=== PATIENT | male | born 1960 | race Caucasian/White ===

== ENCOUNTER → 2024-08-07 | Outpatient (CLI) | payer OTHER, SELFPAY ==
[2024-08-07 12:22] LABS: Absolute Lymphocyte Count 1.46 X10^3/uL (0.83-4.51); Absolute Neutrophil Count 3.4 X10^3/uL (2.0-7.7); Basophil# 0.06 X10^3/uL; Basophil% 1.1 % (0-1); Eosinophil# 0.15 X10^3/uL; Eosinophils% 2.7 % (0-5); Hematocrit 48.1 % (40-54); Lymphocyte # 1.46 X10^3/ul (0.83-4.51); Lymphocyte % 26.3 % (19-41); Mean Corp Hgb Conc 31.2 g/dL (32-36); Mean Corpuscular Hgb 27.7 pg (27.0-32.0); Mean Corpuscular Volume 88.9 fL (80-94); Mean Platelet Vol. 9.5 fl (6.2-12.0); Monocyte# 0.48 X10^3/uL; Monocyte% 8.6 % (0-10); NRBC Flagged by Analyzer 0 % (0-5); Neutrophil # 3.38 X10^3/uL (2.7-7.7); Neutrophil % 60.9 % (47-70); Platelet Count 377 K/mm3 (150-450); RBC Distribution Width CV 12.7 % (11.6-14.6); RBC Distribution Width SD 41.3 fl (35.1-43.9); Red Blood Count 5.41 M/mm3 (4.6-6.2); White Blood Count 5.6 K/mm3 (4.4-11.0)
[2024-08-07 13:19] LABS: AST(SGOT) 20 U/L (15-37); Alanine Aminotransfer ALT/SGPT 20 U/L (16-61); Alkaline Phosphatase 104 U/L (45-117); Anion Gap 6 (5-15); BUN 8 mg/dL (7-18); BUN/Creat Ratio 9.1 RATIO (10-20); Calcium,Total 9.4 mg/dL (8.5-10.1); Chloride 102 mmol/L (98-107); Cholesterol 198 mg/dL (200); Creatinine, Serum 0.88 mg/dL (0.70-1.30); EST Glomerular Filtration Rate 92 mL/min (>60); Est Glom Filt Rate - Afr Amer 112 mL/min (>60); Globulin 4.1 g/dL (2.2-4.2); Glucose 90 mg/dL (74-106); High Density Lipoprotein 75 mg/dL; Potassium 5.1 mmol/L (3.5-5.1); Protein, Total 8.1 g/dL (6.4-8.2); Sodium Level 137 mmol/L (136-145); Triglycerides 74 mg/dL; Very Low Density Lipoprotein 15 mg/dL (5-40)
--- NOTE | 2024-08-07 13:28 | RAD_ITS ---
EXAM: XR CHEST, 2 VIEWS CLINICAL INDICATION: SOB TECHNIQUE: Frontal and lateral views of the chest. COMPARISON: 02/06/2024 FINDINGS: LUNGS AND PLEURAL SPACES: Hyperinflation of the lungs and diffuse interstitial prominence consistent with COPD. No definite focal pneumonia. No pneumothorax. No effusion. HEART: No significant abnormality. Cardiac silhouette not enlarged. MEDIASTINUM: Central airways and mediastinal contour are unremarkable. BONES/JOINTS: Osseous degenerative changes. No acute fracture. SOFT TISSUES: No significant abnormality. VASCULATURE: Atherosclerosis. RAD/Chest PA and Lateral IMPRESSION: Hyperinflation of the lungs and diffuse interstitial prominence consistent with COPD. No definite focal pneumonia. Electronically Signed: Víctor Welch DO at 22:12 EST ,
== END | disposition home or self-care (01) ==
PROVIDERS: PCP Nurse Practitioner Family; Referring Provider Nurse Practitioner Family; Visit Provider Nurse Practitioner Family
DX: Z00.01 Encounter for general adult medical examination with abnormal findings (principal); Z12.5 Encounter for screening for malignant neoplasm of prostate; R06.02 Shortness of breath; I25.2 Old myocardial infarction
CPT/HCPCS: 36415; 71046; 80053; 80061; 83880; 84153; 85025; G0103

== ENCOUNTER → 2024-10-09 | Outpatient (CLI) | payer OTHER, SELFPAY ==
--- NOTE | 2024-10-09 06:49 | ECHOD_ITS ---
Reason For Study Reason For Study: Chest Pain Procedure This was a 2D Doppler, Color Flow transthoracic echocardiogram. Techncially difficult due to patient body habitus. Most images taken from subcostal window. Exam performed in department. Left Ventricle Normal LV size. Left ventricular systolic function is normal. The left ventricular ejection fraction is 55 %. Stage 1 diastolic dysfunction. No regional wall motion abnormalities noted. Right Ventricle Normal RV size. Normal systolic function. Atria Normal left atrium. Normal right atrium. Mitral Valve Normal mitral valve. Tricuspid Valve Normal tricuspid valve. Mild to moderate (1-2+) tricuspid valve insufficiency. Pulmonary artery systolic pressure is 45 mmHg. Aortic Valve Trisinus/trileaflet aortic valve. Pulmonic Valve Normal pulmonic valve. Great Vessels Normal aortic root. The pulmonary artery is normal size. Inferior vena cava collapse with respiration. Pericardium/Pleural No pericardial effusion. MMode/2D Measurements & Calculations LVIDd: 3.8 cm IVSd: 0.81 cm LA dimension: 2.1 cm LVIDs: 2.5 cm LVPWd: 0.71 cm RVDd: 3.5 cm FS: 33.1 % Time Measurements MV dec time: 0.12 sec Doppler Measurements & Calculations MV E max edi: 62.8 cm/sec Lat Peak E' Edi: 17.9 cm/sec Med Peak E' Edi: 11.8 cm/sec MV A max edi: 67.0 cm/sec E/E' lat: 3.5 E/E' med: 5.3 MV E/A: 0.94 MV V2 max: 104.1 cm/sec MV P1/2t max edi: 79.1 cm/sec LV V1 max: 118.4 cm/sec MV max P.3 mmHg MV P1/2t: 42.2 msec LV V1 max P.6 mmHg MV V2 mean: 60.6 cm/sec LV V1 mean P.5 mmHg MV mean P.7 mmHg MV dec slope: 549.3 cm/sec2 LV V1 mean: 72.8 cm/sec MV V2 VTI: 14.9 cm MVA(P1/2t): 5.2 cm2 LV V1 VTI: 16.6 cm PA V2 max: 136.6 cm/sec TR max edi: 322.8 cm/sec TR max P.7 mmHg ECHO/Echo Complete Interpretation Summary Normal LV size. Left ventricular systolic function is normal. The left ventricular ejection fraction is 55 %. Stage 1 diastolic dysfunction. Pulmonary artery systolic pressure is 45 mmHg. Ordering Physician: Ned Harrison MD Referring Physician: Ned Harrison Performed By: Jimmy Rose RCS
--- NOTE | 2024-10-09 18:01 | STRESSREP ---
Stress Test Report Pharmacologic myocardial perfusion stress test. 64-year-old man with history of coronary artery disease Resting EKG demonstrates sinus tachycardia with a rate of 104 bpm. Resting blood pressure is 130/82 mmHg. 0.4 mg of regadenoson was infused per usual protocol followed by rapid intravenous saline flush injection. Continuous EKG monitoring was performed. The maximum heart rate was 136 bpm which was 87% of max impacted heart rate the maximum workload was 1 metabolic equivalent. At rest there were no ST or T wave changes noted to suggest ischemia and at peak infusion nonspecific ST changes were noted which did not meet the criteria for ischemia. No clinical angina is noted. The final blood pressure was 126/84 mmHg. Myocardial perfusion protocol. 12 mCi of technetium 99m sestamibi was injected at rest. 0.4 mg of regadenoson was infused per usual protocol. At peak infusion 34.7 mCi of technetium 99m sestamibi was injected stress images were obtained stress and rest images were reconstructed and compared in the short axis vertical long and horizontal long axis. Gated images were also obtained. Perfusion SPECT analysis: Review of the stress images demonstrate normal uptake of tracer noted in all areas of the myocardium. The resting images similar demonstrated normal uptake of tracer noted in all areas of the myocardium. No areas of reversibility are noted to suggest ischemia and no previous infarct is noted. Gated SPECT analysis: The gated ejection fraction is 50%. Conclusion: Normal pharmacologic myocardial perfusion stress test. Preserved ejection fraction.
== END | disposition home or self-care (01) ==
PROVIDERS: PCP Nurse Practitioner Family; Referring Provider Internal Medicine Cardiovascular Disease; Visit Provider Internal Medicine Cardiovascular Disease
DX: I25.10 Atherosclerotic heart disease of native coronary artery without angina pectoris (principal)
CPT/HCPCS: 78452; 93017; 93306; A9500; J2785

== ENCOUNTER → 2025-02-12 | Outpatient (CLI) | payer OTHER, SELFPAY ==
[2025-02-12 18:04] LABS: Cholesterol 179 mg/dL (<=200); Low Density Lipoprotein Calc. 99 mg/dL; Triglycerides 49 mg/dL; Very Low Density Lipoprotein 10 mg/dL (5-40); cholesterol:hdl ratio screen 2.56
== END | disposition home or self-care (01) ==
LOC: LAB 16:13
PROVIDERS: PCP Nurse Practitioner Family; Referring Provider Student in an Organized Health Care Education/Training Program; Visit Provider Student in an Organized Health Care Education/Training Program
DX: I25.10 Atherosclerotic heart disease of native coronary artery without angina pectoris (principal)
CPT/HCPCS: 36415; 80061

== ENCOUNTER → 2025-04-22 | Outpatient (CLI) | payer OTHER, SELFPAY | END | disposition home or self-care (01) | LOC: PSN 12:49 | PROVIDERS: PCP Nurse Practitioner Family; Referring Provider Student in an Organized Health Care Education/Training Program; Visit Provider Student in an Organized Health Care Education/Training Program | DX: R00.0 Tachycardia, unspecified (principal) | CPT/HCPCS: 93225; 93226 ==

== ENCOUNTER → 2025-06-02 | Outpatient (CLI) | payer OTHER, SELFPAY | END | disposition home or self-care (01) | LOC: PSN 11:52 | PROVIDERS: PCP Nurse Practitioner Family; Referring Provider Student in an Organized Health Care Education/Training Program; Visit Provider Student in an Organized Health Care Education/Training Program | DX: R00.0 Tachycardia, unspecified (principal) | CPT/HCPCS: 93225; 93226 ==

== ENCOUNTER → 2025-06-16 | Outpatient (CLI) | payer OTHER, SELFPAY ==
--- OUTSIDE RECORDS SUMMARY | 2025-06-16 07:03 | XMS RPT_ITS | CCD ---
Author Organization [facility] Care Team Providers Care Coding File Clerk Name Role Phone Jocelyn PLANT SCIENCE PROFESSOR-C, Sherin Primary Care Provider Jocelyn PLANT SCIENCE PROFESSOR-C, Sherin Attending Provider [phone] Jocelyn PLANT SCIENCE PROFESSOR-C, Sherin Referring Provider Christy APONTE, Dr. Marino Attending Provider [phone] Ned Harrison MD Referring Provider [phone] Ynes Hectoryler Attending Provider [phone] Jocelyn PLANT SCIENCE PROFESSOR-C, Sherin Primary Care Provider Bhargav Hector Attending Provider Aida MENDOZA Bhargav Referring Provider [phone] Jocelyn PLANT SCIENCE PROFESSOR-C, Sherin Referring Provider Christy APONTE, Dr. Marino Attending Provider [phone] Jocelyn PLANT SCIENCE PROFESSOR-C, Sherin Primary Care Physician Bhargav Hector Attending Physician [phone] Christy APONTE, Dr. Marino Attending Physician Aida Bhargav Referring Unavailable Xavier Guadalupe Attending Unavailable Jocelyn, Sherin Primary Care Unavailable Ned Harrison Attending Unavailable Jocelyn, Sherin Primary Care Unavailable Jocelyn, Sherin Referring Unavailable Jocelyn, Sherin Primary Care Unavailable Bhargav Parra Attending Unavailable Jocelyn, Sherin Referring Unavailable Jocelyn, Sherin Primary Care Unavailable Ynes Parrayler Attending Unavailable Jocelyn, Sherin Referring Unavailable Ned Harrison Attending Unavailable Ned Harrison Referring Unavailable Jocelyn, Sherin Primary Care Unavailable Jocelyn, Sherin Primary Care Unavailable Abbyiter, Bhargav Attending Unavailable Demiter, Bhargav Referring Unavailable Demiter, Bhargav Referring Unavailable Demiter, Bhargav Attending Unavailable [facility] Primary Care Unavailable Demiter, Bhargav Referring Unavailable Demiter, Bhargav Attending Unavailable [facility] Primary Care Unavailable [facility] Primary Care Unavailable [facility] Attending Unavailable [facility] Referring Unavailable ChristyNed tan Attending Unavailable [facility] Referring Unavailable [facility] Primary Care Unavailable Ned Harrison Attending Unavailable [facility] Primary Care Unavailable Medications Current Medications Medication Drug Class(es) Dates Sig (Normalized) Sig (Original) [id number] 200 actuat albuterol 0.09 mg/actuat metered dose inhaler (5 sources) beta2-Adrenergic Agonist Start: 08-30-2024 aspirin 81 mg chewable tablet (5 sources) Platelet Aggregation Inhibitor, Nonsteroidal Anti-inflammatory Drug Start: 09-06-2024 take 1 tablet by mouth once daily 24 hr metoprolol succinate 50 mg extended release oral tablet (15 sources) beta-Adrenergic Kat Start: 04-04-2025 take 1 tablet by mouth once daily Start: 02-14-2025 End: 04-04-2025 take 1 tablet by mouth once daily Metoprolol Succinate 25 mg tablet extended release 24 hr Discontinued 25 mg PO daily 90 3 February 14, 2025 12:00pm April 04, 2025 2:57pm Start: 09-06-2024 End: 02-14-2025 take 1 tablet by mouth once daily Metoprolol Succinate (Toprol Xl) 50 mg tablet extended release 24 hr Discontinued 50 mg PO daily 90 3 September 06, 2024 1:00am February 14, 2025 12:01pm Start: 07-09-2013 End: 09-06-2024 Metoprolol Tartrate 25 MG ta blet Discontinued 12.5 mg PO TWICE A DAY July 09, 2013 1:00am September 06, 2024 12:13pm Completed/Discontinued Medications Medication Drug Class(es) Dates Sig (Normalized) Sig (Original) acetaminophen 325 mg / HYDROcodone bitartrate 5 mg oral tablet (5 sources) Opioid Agonist Start: 07-09-2013 End: 09-06-2024 Hydrocodone-Acetam inophen 1 TABLET tablet Discontinued 1 {tbl} PO EVERY 4 HOURS NEEDED as needed for Narcotic Induced Breathing Dif 20 0 July 09, 2013 1:00am September 06, 2024 12:13pm acetaminophen 325 mg / oxyCODONE hydrochloride 5 mg oral tablet (5 sources) Opioid Agonist Start: 02-05-2014 End: 09-06-2024 Oxycodone-Acetamin ophen 1 TABLET tablet Discontinued 1 - 2 {tbl} PO EVERY 4 HOURS NEEDED as needed for Pain February 05, 2014 12:00am September 06, 2024 12:13pm ibuprofen 600 mg oral tablet (5 sources) Nonsteroidal Anti-inflammatory Drug Start: 02-05-2014 End: 09-06-2024 take 1 tablet by mouth every eight hours Ibuprofen 600 MG tablet Discontinued 600 mg PO Q8H 30 0 February 05, 2014 12:00am September 06, 2024 12:13pm lisinopril 10 mg oral tablet (14 sources) Angiotensin Converting Enzyme Inhibitor Start: 02-14-2025 End: 04-04-2025 take 1 tablet by mouth once daily Lisinopril 10 mg tablet Discontinued 10 mg PO daily 90 3 February 14, 2025 12:00pm April 04, 2025 2:57pm Start: 09-06-2024 End: 02-14-2025 take 1 tablet by mouth once daily Lisinopril 20 mg tablet Discontinued 20 mg PO daily 90 3 September 06, 2024 1:00am February 14, 2025 12:01pm Start: 07-09-2013 End: 09-06-2024 take 1 tablet by mouth every other day Lisinopril 2.5 MG tablet Discontinued 2.5 mg PO EVERY OTHER DAY July 09, 2013 1:00am September 06, 2024 12:13pm naproxen 500 mg oral tablet (5 sources) Nonsteroidal Anti-inflammatory Drug Start: 07-09-2013 End: 09-06-2024 take 1 tablet by mouth twice daily Naproxen 500 MG tablet Discontinued 500 mg PO TWICE A DAY July 09, 2013 1:00am September 06, 2024 12:13pm Simvastatin (5 sources) HMG-CoA Reductase Inhibitor Start: 07-09-2013 End: 09-06-2024 Simvastatin Discontinued 1 {tbl} PO DAILY July 09, 2013 1:00am September 06, 2024 12:13pm Problems Active Problems Problem Classification Problem Date Documented Da te Episodic/Chronic Cardiac dysrhythmias (6 sources) Tachycardia; Translations: [Tachycardia, unspecified] Onset: 04-28-2025 03-21-2025 Episodic Coronary atherosclerosis and other heart disease (20 sources) History of non-ST segment elevation myocardial infarction; Translations: [Old myocardial infarction] Onset: 09-06-2024 10-15-2024 Chronic Essential hypertension (11 sources) Hypertensive disorder; Translations: [Essential (primary) hypertension] 10-15-2024 Chronic Occlusion or stenosis of precerebral arteries (5 sources) Vascular calcification; Translations: [Occlusion and stenosis of unspecified carotid artery] 08-30-2024 Chronic Other circulatory disease (4 sources) Low blood pressure; Translations: [Hypotension, unspecified] 03-21-2025 Episodic Other lower respiratory disease (10 sources) Dyspnea; Translations: [Shortness of breath] 08-30-2024 Episodic Past or Other Problems Problem Classification Problem Date Documented Da te Episodic/Chronic Other lower respiratory disease (1 source) Shortness of breath; Translations: [Shortness of breath] Onset: 09-06-2024 Episodic Results Test Name Value Interpretation Reference Range Facility Office Visit Reporton 2024 Office Visit Report [facility] [address] [place] [address] OFFICE VISIT Date of Service: 03/21/25 MR#: [id number] Acct: [id number] Patient: KOLTON WALTER Rep #: [id number] : 1960 Provider: Dr. Ned Harrison MD Age/Sex: 64/M Location: [facility] [place] Status: Signed Intake Vital Signs 02/14/25 11:29 03/21/25 13:59 Height 5 ft 5 in 5 ft 5 in Weight: 99 lb BMI 16.5 BP 89/66 L 100/66 Blood Pressure Location Lt brachial Lt brachial Position Sitting Sitting Respiration 18 18 Pulse 97 130 H Pulse Source Monitor Monitor Temp 96.4 F L Pulse Oximetry (%) 97 93 Oxygen Delivery Method room air room air Intake Visit Reasons: Blood pressure check Allergies No Known Allergies Allergy (Verified 02/14/25 11:29) Nurse's Note: 2 week BP and pulse checked after discontinuing his lisinopril and metoprolol decrease d/t Pt's concern about interaction with his COPD. BP 100/66 Pulse 130. Fatigue and dizziness have improved. Continued SOB with activity. Reports feel HR increase with activity as well. To establish with [facility] 05/01/25. Denies chest pain. No other distress noted. KELLY Herrera notified with new orders to increase metoprolol succ 50 mg qday and check BP and HR then notify office of readings. Pt reports will purchase BP monitor. Assessment and Plan Assessment and Plan (1) Hypotension: Status: Acute Qualifiers: Hypotension type: unspecified hypotension type Qualified Code(s): I95.9 - Hypotension, unspecified Plan: Patient has a history of hypertension. Last seen 02/14/2025 blood pressure noted to be 82/60. At that time, he was recommended to decrease his lisinopril to 10 mg daily and his metoprolol to 25 mg daily. BP check in office today with a blood pressure of 100/66 and a heart rate of 130. Plan: Recommend patient discontinue his lisinopril and return metoprolol dose to metoprolol succinate 50 mg daily. Recommend patient monitor his blood pressure in his home environment and notify our office with readings in 2 weeks. (2) Tachycardia: Status: Acute Plan: Patient's metoprolol was decreased to 25 mg daily at last appointment secondary to hypotension. Upon evaluation today, patient is noted to be tachycardic with a heart rate of 132 bpm on EKG and sinus tachycardia. Plan: Recommend patient increase his metoprolol to 50 mg daily at previous dose. Asked patient to monitor his heart rate and his home environment over the next 2 weeks and notify our office with collected data. Orders: Orders 12 Lead EKG performed by [facility] 03/21/25 R00.0 - Tachycardia, unspecified 03/21/25 1525 Date Bhargav MENDOZA 03/24/25 0839 Cosigner Signature: Date (if applicable) Ned Harrison MD CC: Normal [facility] Cardiology Visit Reporton Cardiology Visit Report [facility] [address] [place] [address] OFFICE VISIT Date of Service: 02/14/25 MR#: [id number] Acct: [id number] Name: KOLTON WALTER Rep #: [id number] : 1960 Provider: KELLY Herrera Age/Sex: 64/M Location: [facility] Status: Signed HPI HPI History of Present Illness Details: Kolton Walter is a 64-year-old male who presents to the office today for follow-up for monitoring his cardiovascular disease. Patient has a history of coronary artery disease dating back to 2010 in which he presented with chest discomfort and was found to have an NSTEMI. Patient underwent heart catheterization at that time which demonstrated a left main coronary artery which was normal, proximal LAD with a 90% stenosis with thrombosis, left circumflex artery with 70% ostial stenosis in the right coronary artery which had 40% mid stenosis. Patient underwent angioplasty and stenting of the LAD artery with a drug-eluting stent. Patient was lost to follow-up after that. Patient reestablished with cardiology here in August 2024, approximately 1 month ago. At time of reestablishing here, patient reported concerns of fatigue and shortness of breath with exertion and a few episodes of near syncope. Patient was initiated on 2 antihypertensive agents including metoprolol succinate and lisinopril. Patient had nuclear stress test and echocardiogram ordered at that time. Upon presentation today, patient reports dizziness with standing up and with activity. He denies syncope. He notices fatigue as soon as he tries to do any activity. It is affecting his efficiency at work. His fatigue is the same as reported 4 months ago. Weakness is reported to be about the same over the last 4 months. he Continues to lose weight. He feels he is eating fine. He continues to find himself short of breath with any activity. This also felt to be about the same as 4 months ago. Further ROS below. Intake Vital Signs 10/15/24 07:22 02/14/25 11:29 02/14/25 12:04 Height 5 ft 5 in 5 ft 5 in Weight: 106 lb 99 lb BMI 17.6 16.5 BP 117/79 89/66 L 82/60 L Blood Pressure Location Lt brachial Lt brachial Lt brachial Position Sitting Sitting Sitting Respiration 18 18 Pulse 96 97 Pulse Source Monitor Monitor Temp 96.4 F L Temperature Source Oral Pulse Oximetry (%) 94 97 Oxygen Delivery Method room air room air Intake Visit Reasons: 4 M FU Certified Medical Technician Required: No Accompanied by: Self Is patient in pain?: No Allergies No Known Allergies Allergy (Verified 02/14/25 11:29) Medications ???Medication ???Instructions ???Recorded ???Confirmed ???Type albuterol sulfate 90 mcg/actuation 2 puff inhalation Q4-6H PRN 02/1402/14/25 History aerosol inhaler aspirin 81 mg chewable tablet 81 mg PO QDAY 09/06/24 02/14/25 Hi story lisinopril 10 mg tablet 10 mg PO QDAY #90 tabs 02/14/25 Rx metoprolol succinate 25 mg 25 mg PO QDAY #90 tabs 02/14/25 Rx tablet,extended release 24 hr Have you fallen in the past year?: No PFSH Medical History COPD (chronic obstructive pulmonary disease) SOB (shortness of breath) CAD (coronary artery disease) Carotid artery calcification Hx of non-ST elevation myocardial infarction (NSTEMI) ( 2010) Surgical History History of percutaneous coronary intervention (06/04/11) Family History Grandmother Diabetes Grandfather Cancer Social History Smoking Status: Current every day smoker quit status: considering quitting alcohol intake: never substance use type: marijuana caffeine: Yes Type: carbonated beverages, coffee and tea ROS Const Const: Positive for fatigue and weakness ENT ENT: Positive for dizziness; Negative for balance problems Cardio Chest Pain: No Palpitations: No Edema: None Muscle aches with walking: None Resp Respiratory: Positive for SOB with activity; Negative for SOB at rest or SOB orthopnea SOB lying down GI GI: Negative nausea, vomiting or heartburn Musc Musc: Negative for muscle weakness or balance problems Neuro Neuro: Positive for dizziness and weakness; Negative for lightheadedness, near syncope or syncope Endo Endo: Positive for fatigue Cardiology Exam Const Appearance: cooperative, comfortable, no acute distress and well developed; Negative diaphoretic Nutritional Appearance: thin Orientation: alert and oriented x3 Ambulating without assistive device Head Head: normal to inspection, normocephalic and atraumatic Ears: hearing grossly normal bilaterally Nose: external nose normal and Negative epis (more content not included)... Normal [facility] Calculated very low density lipoprotein (VLDL) cholesterol measurementOrdered By: Bhargav Parra on 02-12-2025 Calculated very low density lipoprotein (VLDL) cholesterol measurement 10 mg/dL 5-40 [facility] LDL calc ser/plasOrdered By: Bhargav Parra on 02-12-2025 Cholesterol in LDL [Mass/Vol] 99 mg/dL [facility] Comment on above: Stonojxtoj=705-502 m g/dL & Higher Itde=402 mg/dL or greater Lipid Profileon 02-12-2025 CHOL:HDL 2.56 Normal [facility] Comment on above: Performed By: #### L 500.4100 #### [facility] [address] [place], [address] Cholesterol [Mass/Vol] 179 mg/dL Normal <=200 [facility] Comment on above: Result Comment: Chol esterol level, Desirable <200 mg/dL Borderline high cholesterol 200-239 mg/dL High cholesterol >=240 mg/dL Recommendations of the NCEP Adult Treatment Panel for the following risk-cutoff thresholds for the [place] population. Performed By: #### L 500.4100 #### [facility] [address] [place], [address] Cholesterol in HDL [Mass/Vol] 70 mg/dL Normal [facility] Comment on above: Result Comment: Rocio onal Cholesterol Education Program (NCEP) guidelines: <40 mg/dL: Low HDL-cholesterol (major risk factor for CHD) >= 60 mg/dL: High HDL-cholesterol (negative risk factor for CHD) HDL-cholesterol is affected by a number of factors, e.g. smoking, exercise, hormones, sex and age. Performed By: #### L 500.4100 #### [facility] [address] [place], [address] Cholesterol in LDL [Mass/Vol] 99 mg/dL Normal [facility] Comment on above: Result Comment: Bord pcylpv=236-342 mg/dL Higher Jdxn=902 mg/dL or greater Performed By: #### L 500.4100 #### [facility] [address] [place], [address] Cholesterol in VLDL [Mass/Vol] 10 mg/dL Normal 5-40 [facility] Comment on above: Performed By: #### L 500.4100 #### [facility] [address] [place], [address] Triglyceride [Mass/Vol] 49 mg/dL Normal [facility] Comment on above: Result Comment: The drugs N-Acetylcysteine and Metamizole may falsely depress this assay. Normal range: <150 mg/dL Borderline High: 150-199 mg/dL High: 200-499 mg/dL Very High: >500 mg/dL Performed By: #### L 500.4100 #### [facility] [address] [place], [address] Screening total cholesterol/ high density lipoprotein (HDL) cholesterol ratioOrdered By: Bhargav Parra on 02-12-2025 Cholesterol.total/[place] sterol in HDL [Mass ratio] 2.56 {ratio} [facility] Serum or plasma cholesterol in HDL measurement (mass/volume)Ordered By: Bhargav Parra on 02-12-2025 Cholesterol in HDL [Mass/Vol] 70 mg/dL >40 [facility] Comment on above: National Cholesterol Education Program (NCEP) guidelines:<40 mg/dL: Low HDL-cholesterol (major risk factor for CHD)>= 60 mg/dL: High HDL-cholesterol (negative risk factor for CHD)HDL-cholesterol is affected by a number of factors, e.g. smoking, exercise, hormones, sex and age. Serum or plasma cholesterol measurement (mass/volume)Ordered By: Bhargav Parra on 02-12-2025 Cholesterol [Mass/Vol] 179 mg/dL <201 [facility] Comment on above: Cholesterol level, D esirable <200 mg/dLBorderline high cholesterol 200-239 mg/dLHigh cholesterol >=240 mg/dLRecommendations of the NCEP Adult Treatment Panel for the following risk-cutoff thresholds for the [place] population. Triglycerides measurementOrd ered By: Bhargav Parra on 02-12-2025 Triglyceride [Mass/Vol] 49 mg/dL <199 [facility] Comment on above: The drugs N-Acetylcy steine and Metamizole may falsely depress this assay. Normal range: <150 mg/dLBorderline High: 150-199 mg/dLHigh: 200-499 mg/dLVery High: >500 mg/dL Cardiology Visit Reporton Cardiology Visit Report [facility] [address] [place] [address] OFFICE VISIT Date of Service: 10/15/24 MR#: [id number] Acct: [id number] Name: KOLTON WALTER Rep #: [id number] : 1960 Provider: KELLY Herrera Age/Sex: 64/M Location: [facility] Status: Signed HPI HPI History of Present Illness Details: Kolton Walter is a 64-year-old male who presents to the office today for follow-up for monitoring his cardiovascular disease. Patient has a history of coronary artery disease dating back to 2010 in which he presented with chest discomfort and was found to have an NSTEMI. Patient underwent heart catheterization at that time which demonstrated a left main coronary artery which was normal, proximal LAD with a 90% stenosis with thrombosis, left circumflex artery with 70% ostial stenosis in the right coronary artery which had 40% mid stenosis. Patient underwent angioplasty and stenting of the LAD artery with a drug-eluting stent. Patient was lost to follow-up after that. Patient reestablished with cardiology here in August 2024, approximately 1 month ago. At time of reestablishing here, patient reported concerns of fatigue and shortness of breath with exertion and a few episodes of near syncope. Patient was initiated on 2 antihypertensive agents including metoprolol succinate and lisinopril. Patient had nuclear stress test and echocardiogram ordered at that time. Since seen, approximately 1 month ago, patient reports feeling about the same. Patient reports he was recently diagnosed with COPD and is planning to follow-up with PCP and possibly see a category planner. Patient reports fatigue over the last 6 months that he relates to shortness of breath with activity. Patient has a long history of smoking and works in an environment with poor air quality. Patient reports noticing headaches since starting his antihypertensive medications; however, does report that the headaches have resolved and he has not had a headache in over a week now. Patient does report anxiety about his health. Prior to patient's presentation for NSTEMI, patient was experiencing shortness of breath, neck pain, chest discomfort, arm heaviness. Patient denies any recurrence of these symptoms, acknowledging he does have shortness of breath but is different from prior episode. Intake Vital Signs 09/06/24 11:09 10/15/24 07:22 Height 5 ft 5 in 5 ft 5 in Weight: 108 lb 106 lb BMI 17.9 17.6 BP 160/113 H 117/79 Blood Pressure Location Lt brachial Lt brachial Position Sitting Sitting Respiration 18 18 Pulse 101 H 96 Pulse Source NIBP Monitor Pulse Oximetry (%) 94 Oxygen Delivery Method room air Intake Visit Reasons: 4 W FU Certified Medical Technician Required: No Accompanied by: Self Is patient in pain?: No Allergies No Known Allergies Allergy (Verified 10/15/24 11:00) Medications ???Medication ???Instructions ???Recorded ???Confirmed ???Type albuterol sulfate 90 mcg/actuation 2 puff inhalation Q4-6H PRN 02/1410/15/24 History aerosol inhaler aspirin 81 mg chewable tablet 81 mg PO QDAY 09/06/24 10/15/24 Hi story lisinopril 20 mg tablet 20 mg PO QDAY #90 tabs 09/06/24 Rx metoprolol succinate 50 mg 50 mg PO QDAY #90 tabs 09/06/24 Rx tablet,extended release 24 hr (Toprol XL) Ejection fraction %: 55 [facility] Medical History COPD (chronic obstructive pulmonary disease) SOB (shortness of breath) CAD (coronary artery disease) Carotid artery calcification Hx of non-ST elevation myocardial infarction (NSTEMI) ( 2010) Surgical History History of percutaneous coronary intervention (06/04/11) Family History Grandmother Diabetes Grandfather Cancer Social History Smoking Status: Current every day smoker quit status: considering quitting alcohol intake: never substance use type: marijuana caffeine: Yes Type: carbonated beverages, coffee and tea ROS Const Const: Positive for fatigue and headache(s) (since on BP med); Negative for weakness, frequent falls, night sweats, excessive sweating or weight gain Eyes Eyes: Negative for blurry vision ENT ENT: Positive for headache(s) (since on BP med); Negative for dizziness, tinnitus, Nosebleed/epistaxis, balance problems or bleeding gums Cardio Chest Pain: No Palpitations: No Edema: None Muscle aches with walking: None Resp Respiratory: Positive for SOB with activity, SOB at rest, SOB orthopnea SOB lying down, Cough, chest congestion and wheezing; Negative for snoring or paroxysmal nocturnal dyspnea GI GI: Negative nausea, vomiting, heartburn, (more content not included)... Normal [facility] Cardiovascular stress test r eportOrdered By: Ned Harrison on 10-09-2024 Study report [facility] [address] [place] [address] MR#: [id number] Acct: [id number] Name: KOLTON WALTER Rep #: [id number] : 1960 64 From: Ned Harrison MD Primary Care: ROHINI Cameron Status: REG CLI Referring Dr: Ned Harrison MD Sex: M C Stress Test Report Pharmacologic myocardial perfusion stress test. 64-year-old man with history of coronary artery disease Resting EKG demonstrates sinus tachycardia with a rate of 104 bpm. Resting blood pressure is 130/82 mmHg. 0.4 mg of regadenoson was infused per usual protocol followed by rapid intravenous saline flush injection. Continuous EKG monitoring was performed. The maximum heart rate was 136 bpm which was 87% of max impacted heart rate the maximum workload was 1 metabolic equivalent. At rest there were no ST or T wave changes noted to suggest ischemia and at peak infusion nonspecific ST changes were noted which did not meet the criteria for ischemia. No clinical angina is noted. The final blood pressure was 126/84 mmHg. Myocardial perfusion protocol. 12 mCi of technetium 99m sestamibi was injected at rest. 0.4 mg of regadenoson was infused per usual protocol. At peak infusion 34.7 mCi of technetium 99m sestamibi was injected stress images were obtained stress and rest images were reconstructed and compared in the short axis vertical long and horizontal long axis. Gated images were also obtained. Perfusion SPECT analysis: Review of the stress images demonstrate normal uptake of tracer noted in all areas of the myocardium. The resting images similar demonstrated normal uptake of tracer noted in all areas of the myocardium. No areas of reversibility are noted to suggest ischemia and no previous infarct is noted. Gated SPECT analysis: The gated ejection fraction is 50%. Conclusion: Normal pharmacologic myocardial perfusion stress test. Preserved ejection fraction. 10/09/241801 Date _ Ned Harrison MD CC: ROHINI Martinez; Dr. Ned Harrison MD ~ Date Dictated: 10/09/241800 Date Transcribed: 10/09/241800 Nurse Ob: CO Signed [facility] Work Phone: Echo Completeon 10-09-2024 Echo Complete [facility] Cardiovascular Services [address] [place] [address] Echo Complete 10/09/24 0822 MR#: [id number] Acct: [id number] Name: KOLTON WALTER Rep #: [id number] : 1960 64 From: Ned Harrison MD Attending Dr: Dr. Ned Harrison MD Status: ROSA FOWLER Ordering Dr: Ned Harrison MD Date: 10/09/24 Location: CVS Sex: M C Admitted: Reason For Study Reason For Study: Chest Pain Procedure This was a 2D Doppler, Color Flow transthoracic echocardiogram. Techncially difficult due to patient body habitus. Most images taken from subcostal window. Exam performed in department. Left Ventricle Normal LV size. Left ventricular systolic function is normal. The left ventricular ejection fraction is 55 %. Stage 1 diastolic dysfunction. No regional wall motion abnormalities noted. Right Ventricle Normal RV size. Normal systolic function. Atria Normal left atrium. Normal right atrium. Mitral Valve Normal mitral valve. Tricuspid Valve Normal tricuspid valve. Mild to moderate (1-2+) tricuspid valve insufficiency. Pulmonary artery systolic pressure is 45 mmHg. Aortic Valve Trisinus/trileaflet aortic valve. Pulmonic Valve Normal pulmonic valve. Great Vessels Normal aortic root. The pulmonary artery is normal size. Inferior vena cava collapse with respiration. Pericardium/Pleural No pericardial effusion. MMode/2D Measurements Calculations LVIDd: 3.8 cm IVSd: 0.81 cm LA dimension: 2.1 cm LVIDs: 2.5 cm LVPWd: 0.71 cm RVDd: 3.5 cm FS: 33.1 % Time Measurements MV dec time: 0.12 sec Doppler Measurements Calculations MV E max edi: 62.8 cm/sec Lat Peak E' Edi: 17.9 cm/sec Med Peak E' Edi: 11.8 cm/sec MV A max edi: 67.0 cm/sec E/E' lat: 3.5 E/E' med: 5.3 MV E/A: 0.94 MV V2 max: 104.1 cm/sec MV P1/2t max edi: 79.1 cm/sec LV V1 max: 118.4 cm/sec MV max P.3 mmHg MV P1/2t: 42.2 msec LV V1 max P.6 mmHg MV V2 mean: 60.6 cm/sec LV V1 mean P.5 mmHg MV mean P.7 mmHg MV dec slope: 549.3 cm/sec2 LV V1 mean: 72.8 cm/sec MV V2 VTI: 14.9 cm MVA(P1/2t): 5.2 cm2 LV V1 VTI: 16.6 cm PA V2 max: 136.6 cm/sec TR max edi: 322.8 cm/sec TR max P.7 mmHg ECHO/Echo Complete Interpretation Summary Normal LV size. Left ventricular systolic function is normal. The left ventricular ejection fraction is 55 %. Stage 1 diastolic dysfunction. Pulmonary artery systolic pressure is 45 mmHg. Ordering Physician: Ned Harrison MD Referring Physician: Ned Harrison Performed By: Jimmy Rose RCS 10/09/24 1313 Date Ned Harrison MD CC: ROHINI Martinez; Dr. Ned Harrison MD Date Dictated: 10/09/2422 Date Transcribed: 10/09/24 131 Nurse Ob: Signed Normal [facility] Echocardiogram study reportO rdered By: Ned Harrison on 10-09-2024 Study report [facility] [address] [place] [address] Echo Complete 10/09/24 0822 MR#: [id number] Acct: [id number] Name: KOLTON WALTER Rep #:[id number] : 1960 64 From: Ned Leach Attending Dr: Dr. Ned Harrison MD S tatus: REG CLI Ordering Dr: Ned Harrison MD Date: Location: [facility] Sex: M C Admitted: Reason For Study Reason For Study: Chest Pain Procedure This was a 2D Doppler, Color Flow transthoracic echocardiogram. Techncially difficult due to patient body habitus. Most images taken from subcostal window. Exam performed in department. Left Ventricle Normal LV size. Left ventricular systolic function is normal. The left ventricular ejection fraction is 55 %. Stage 1 diastolic dysfunction. No regional wall motion abnormalities noted. Right Ventricle Normal RV size. Normal systolic function. Atria Normal left atrium. Normal right atrium. Mitral Valve Normal mitral valve. Tricuspid Valve Normal tricuspid valve. Mild to moderate (1-2+) tricuspid valve insufficiency. Pulmonary artery systolic pressure is 45 mmHg. Aortic Valve Trisinus/trileaflet aortic valve. Pulmonic Valve Normal pulmonic valve. Great Vessels Normal aortic root. The pulmonary artery is normal size. Inferior vena cava collapse with respiration. Pericardium/Pleural No pericardial effusion. MMode/2D Measurements & Calculations LVIDd: 3.8 cm IVSd: 0.81 cm LA dimension: 2.1 cm LVIDs: 2.5 cm LVPWd: 0.71 cm RVDd: 3.5 cm FS: 33.1 % Time Measurements MV dec time: 0.12 sec Doppler Measurements & Calculations MV E max edi: 62.8 cm/sec Lat Peak E' Edi: 17.9 cm/sec Med Peak E' Edi: 11.8 cm/sec MV A max edi: 67.0 cm/sec E/E' lat: 3.5 E/E' med: 5.3 MV E/A: 0.94 MV V2 max: 104.1 cm/sec MV P1/2t max edi: 79.1 cm/sec LV V1 max: 118.4 cm/sec MV max P.3 mmHg MV P1/2t: 42.2 msec LV V1 max P.6 mmHg MV V2 mean: 60.6 cm/sec LV V1 mean P.5 mmHg MV mean P.7 mmHg MV dec slope: 549.3 cm/sec2 LV V1 mean: 72.8 cm/sec MV V2 VTI: 14.9 cm MVA(P1/2t): 5.2 cm2 LV V1 VTI: 16.6 cm PA V2 max: 136.6 cm/sec TR max edi: 322.8 cm/sec TR max P.7 mmHg ECHO/Echo Complete Interpretation Summary Normal LV size. Left ventricular systolic function is normal. The left ventricular ejection fraction is 55 %. Stage 1 diastolic dysfunction. Pulmonary artery systolic pressure is 45 mmHg. Ordering Physician: Ned Harrison MD Referring Physician: Ned Harrison Performed By: Jimmy Rose RCS 10/09/24 1313 Date _ Ned Harrison MD CC: PLANT SCIENCE PROFESSOR-C Sherin Martinez; Dr. Ned Harrison MD ~ Date Dictated: 10/09/24821 Date Transcribed: 10/09/24 1313 Nurse Ob: Signed [facility] Work Phone: Stress Reporton 10-09-2024 Stress Report [facility] [address] [place] [address] MR#: [id number] Acct: [id number] Name: KOLTON WALTER Rep #: [id number] : 1960 64 From: Ned Harrison MD Primary Care: ROHINI Cameron Status: R EG CLI Referring Dr: Ned Harrison MD Sex: M C Stress Test Report Pharmacologic myocardial perfusion stress test. 64-year-old man with history of coronary artery disease Resting EKG demonstrates sinus tachycardia with a rate of 104 bpm. Resting blood pressure is 130/82 mmHg. 0.4 mg of regadenoson was infused per usual protocol followed by rapid intravenous saline flush injection. Continuous EKG monitoring was performed. The maximum heart rate was 136 bpm which was 87% of max impacted heart rate the maximum workload was 1 metabolic equivalent. At rest there were no ST or T wave changes noted to suggest ischemia and at peak infusion nonspecific ST changes were noted which did not meet the criteria for ischemia. No clinical angina is noted. The final blood pressure was 126/84 mmHg. Myocardial perfusion protocol. 12 mCi of technetium 99m sestamibi was injected at rest. 0.4 mg of regadenoson was infused per usual protocol. At peak infusion 34.7 mCi of technetium 99m sestamibi was injected stress images were obtained stress and rest images were reconstructed and compared in the short axis vertical long and horizontal long axis. Gated images were also obtained. Perfusion SPECT analysis: Review of the stress images demonstrate normal uptake of tracer noted in all areas of the myocardium. The resting images similar demonstrated normal uptake of tracer noted in all areas of the myocardium. No areas of reversibility are noted to suggest ischemia and no previous infarct is noted. Gated SPECT analysis: The gated ejection fraction is 50%. Conclusion: Normal pharmacologic myocardial perfusion stress test. Preserved ejection fraction. 10/09/241801 Date Ned Harrison MD CC: ROHINI Martinez; Dr. Ned Harrison MD Date Dictated: 10/09/241800 Date Transcribed: 10/09/241800 Nurse Ob: CO Signed Normal [facility] 12 Lead EKG performed by [facility] on 09-06-2024 12 Lead EKG performed by [id number] [place] [address] 12 Lead EKG performed by [facility] 09/06/241107 MR#: [id number] Acct: [id number] Name: KOLTON WALTER Rep #: [id number] : 1960 64 From: Ned Harrison MD Attending Dr: Dr. Ned Harrison MD Status: DEP A MB Ordering Dr: Ned Harrison MD Date: 09/06/24 Location: [facility] [place] [facility] Sex: M C Admitted: BMS/12 Lead EKG performed by [facility] ECG Report Interpretation ---Sinus Rhythm -Short MA syndrome Patricia = 118-RSR(V1) -nondiagnostic. BORDERLINE RHYTHMElectronically signed on 09/09/2024 at 08:07 by Ned Harrisonwood Software Version 8610 09/09/24 0812 Date Ned Harrison MD CC: ROHINI Martinez Date Dictated: 09/06/241107 Date Transcribed: 09/06/241107 Nurse Ob: CO Signed Normal [facility] Cardiology Visit Reporton Cardiology Visit Report [facility] [address] [place], [place] [address] OFFICE VISIT Date of Service: 09/06/24 MR#: [id number] Acct: [id number] Name: KOLTON WALTER Rep #: [id number] : 1960 Provider: Dr. Ned Harrison MD Age/Sex: 64/M Location: [facility] Status: Signed HPI HPI History of Present Illness Details: 64-year-old man with a known coronary artery disease history dating back to 2010 when he presented with chest discomfort and a non-ST elevation myocardial infarction. He underwent a cardiac catheterization which demonstrated a left main coronary artery which was normal, proximal LAD with a 90% stenosis with thrombus, left circumflex artery with a 70% ostial stenosis in the right coronary artery which had a long 40% mid stenosis. He underwent angioplasty and stenting of the left anterior descending artery with a drug-eluting stent. Since then he has done fairly well he is discontinued all his medications he has not seen a tower foreman in years. He presents now complaining of some fatigue and shortness of breath with exertion and possibly near syncope. His lipid profile demonstrates a total cholesterol 198 HDL of 75 and LDL of 108. He has had no other major cardiac issues. He saw you in the office a chest x-ray did not demonstrate any significant abnormalities in his blood work was remarkably normal. His physical exam demonstrates clear lung hall regular rate and rhythm no pedal edema his electrocardiogram demonstrates sinus rhythm with a rate of 94 bpm and no acute changes. Intake Vital Signs 02/05/14 21:21 09/06/24 11:09 Height 5 ft 5 in 5 ft 5 in Weight: 108 lb BMI 17.9 BP 160/113 H Blood Pressure Location Lt brachial Position Sitting Respiration 18 Pulse 101 H Pulse Source NIBP Intake Visit Reasons: OLD M.I/EST (JOCELYN) Certified Medical Technician Required: No Is patient in pain?: No Allergies No Known Allergies Allergy (Verified 09/06/24 11:11) Medications ???Medication ???Instructions ???Recorded ???Confirmed ???Type albuterol sulfate 90 mcg/actuation 2 puff inhalation Q4-6H PRN 02/1409/06/24 History aerosol inhaler aspirin 81 mg chewable tablet 81 mg PO QDAY 09/06/24 09/06/24 Hi story lisinopril 20 mg tablet 20 mg PO QDAY #90 tabs 09/06/24 Rx metoprolol succinate 50 mg 50 mg PO QDAY #90 tabs 09/06/24 Rx tablet,extended release 24 hr (Toprol XL) Ejection fraction %: 40 (40-45) Have you fallen in the past year?: No PFSH Medical History COPD (chronic obstructive pulmonary disease) SOB (shortness of breath) CAD (coronary artery disease) Carotid artery calcification Hx of non-ST elevation myocardial infarction (NSTEMI) ( 2010) Surgical History History of percutaneous coronary intervention (06/04/11) Family History Grandmother Diabetes Grandfather Cancer Social History Smoking Status: Current every day smoker quit status: considering quitting alcohol intake: never substance use type: marijuana caffeine: Yes Type: carbonated beverages, coffee and tea ROS Const Const: Positive for fatigue and weakness Eyes Eyes: Negative for change in vision ENT ENT: Negative for dizziness or balance problems Cardio Chest Pain: No Palpitations: No Edema: None Resp Respiratory: Positive for SOB with activity; Negative for SOB at rest or SOB orthopnea SOB lying down GI GI: Negative nausea or heartburn Musc Musc: Negative for balance problems Neuro Neuro: Positive for near syncope and weakness; Negative for dizziness, lightheadedness or syncope Endo Endo: Positive for fatigue Cardiology Exam Const Appearance: cooperative, healthy appearing, no acute distress, well developed and well groomed Nutritional Appearance: average body habitus and well nourished Orientation: alert, awake and oriented x3 Head Head: normal to inspection, normocephalic and atraumatic Ears: hearing grossly normal bilaterally and external ears normal Nose: external nose normal, nares normal, nasal mucous membranes and turbinates normal, septum normal and no nasal discharge Face and Sinus: face symmetric Mouth: oral mucosae normal, tongue normal, oropharynx normal and moist mucous membranes Teeth and gingiva: dentition normal Throat: posterior oropharynx normal, tonsils normal and uvula midline Eyes General: appearance normal, both eyes and all related structures Eyelids: eyelids normal Conjunctivae: conjunctivae normal Pupils: PERRL, normal by confrontation and accommodation normal EOM: EOM intact bilaterally Neck Neck: normal visual inspecti (more content not included)... Normal [facility] Absolute neutrophil countOrd ered By: Sherin Martinez on 08-07-2024 Neutrophils (Bld) [#/Vol] 3.4 10*3/uL 2.0-7.7 [facility] Albumin to globulin ratioOrd ered By: Sherin Martinez on 08-07-2024 Albumin/Globulin [Mass ratio] 1.0 {ratio} 0.9-2.4 [facility] BNP (brain natriuretic pepti de measurement)Ordered By: Sherin Martinez on 08-07-2024 Natriuretic peptide B (Bld) [Mass/Vol] 14.0 pg/mL 0-100 [facility] BNP,B-Type NATRIURETIC PEPTI Rafi 08-07-2024 Natriuretic peptide B (Bld) [Mass/Vol] 14.0 pg/mL Normal 0-100 [facility] Comment on above: Performed By: #### L 501.9910, L500.4050, L503.6620, L100.0100, L500.4100 #### [facility] Laboratory [address] [place] [address]. [place], [address] Basophil percentageOrdered B y: Sherin Martinez on 08-07-2024 Basophils/100 WBC (Bld) 1.1 % High 0-1 [facility] Bilirubin, totalOrdered By: Sherin Martinez on 08-07-2024 Bilirubin [Mass/Vol] 0.40 mg/dL 0.20-1.00 [facility] Comment on above: For patients on eltr ombopag therapy, use of Dimension [place] TBIL is not recommended. Blood urea nitrogen (BUN)/cr eatinine ratioOrdered By: Sherin Martinez on 01-15-2025 Urea nitrogen/Creatinine [Mass ratio] 9.1 mg/mg Low 10-20 [facility] CBC W/Diff, Automatedon 07-24-2024 Absolute Lymph 1.46 X10 3/uL Normal 0.83-4.51 [facility] Comment on above: Performed By: #### L 501.9910, L500.4050, L503.6620, L100.0100, L500.4100 #### [facility] [address] [place], [address] Absolute Neut 3.4 X10 3/uL Normal 2.0-7.7 [facility] Comment on above: Performed By: #### L 501.9910, L500.4050, L503.6620, L100.0100, L500.4100 #### [facility] [address] [place], [address] Basophils/100 WBC (Bld) 1.1 % High 0-1 [facility] Comment on above: Performed By: #### L 501.9910, L500.4050, L503.6620, L100.0100, L500.4100 #### [facility] [address] [place], [address] Eosinophils/100 WBC (Bld) 2.7 % Normal 0-5 [facility] Comment on above: Performed By: #### L 501.9910, L500.4050, L503.6620, L100.0100, L500.4100 #### [facility] [address] [place], [address] Erythrocyte distribution width (RBC) [Ratio] 12.7 % Normal 11.6-14.6 [facility] Comment on above: Performed By: #### L 501.9910, L500.4050, L503.6620, L100.0100, L500.4100 #### [facility] [address] [place], [address] Hematocrit (Bld) [Volume fraction] 48.1 % Normal 40-54 [facility] Comment on above: Performed By: #### L 501.9910, L500.4050, L503.6620, L100.0100, L500.4100 #### [facility] [address] [place], [address] Hemoglobin (Bld) [Mass/Vol] 15.0 g/dL Normal 13.0-16.5 [facility] Comment on above: Performed By: #### L 501.9910, L500.4050, L503.6620, L100.0100, L500.4100 #### [facility] [address] [place], [address] IG% 0.400 Normal 0.0-0.9 [facility] Comment on above: Result Comment: IG% - Immature Granulocytes (promyelocytes, myelocytes and metamyelocytes) > 1% indicates that a LEFT SHIFT is Present. Performed By: #### L 501.9910, L500.4050, L503.6620, L100.0100, L500.4100 #### [facility] [address] [place], [address] Lymphocytes/100 WBC (Bld) 26.3 % Normal 19-41 [facility] Comment on above: Performed By: #### L 501.9910, L500.4050, L503.6620, L100.0100, L500.4100 #### [facility] [address] [place], [address] MCH (RBC) [Entitic mass] 27.7 pg Normal 27.0-32.0 [facility] Comment on above: Performed By: #### L 501.9910, L500.4050, L503.6620, L100.0100, L500.4100 #### [facility] [address] [place], [address] MCHC (RBC) [Mass/Vol] 31.2 g/dL Low 32-36 [facility] Comment on above: Performed By: #### L 501.9910, L500.4050, L503.6620, L100.0100, L500.4100 #### [facility] [address] [place], [address] MCV (RBC) [Entitic vol] 88.9 fL Normal 80-94 [facility] Comment on above: Performed By: #### L 501.9910, L500.4050, L503.6620, L100.0100, L500.4100 #### [facility] [address] [place], [address] Monocytes/100 WBC (Bld) 8.6 % Normal 0-10 [facility] Comment on above: Performed By: #### L 501.9910, L500.4050, L503.6620, L100.0100, L500.4100 #### [facility] [address] [place], [address] Neutrophils/100 WBC (Bld) 60.9 % Normal 47-70 [facility] Comment on above: Performed By: #### L 501.9910, L500.4050, L503.6620, L100.0100, L500.4100 #### [facility] [address] [place], [address] Nucleated RBC (Bld) [#/Vol] 0 10*3/uL Normal 0-5 [facility] Comment on above: Performed By: #### L 501.9910, L500.4050, L503.6620, L100.0100, L500.4100 #### [facility] [address] [place], [address] Platelet mean volume (Bld) [Entitic vol] 9.5 fL Normal 6.2-12.0 [facility] Comment on above: Performed By: #### L 501.9910, L500.4050, L503.6620, L100.0100, L500.4100 #### [facility] [address] [place], [address] Platelets (Bld) [#/Vol] 377 10*3/uL Normal 150-450 [facility] Comment on above: Performed By: #### L 501.9910, L500.4050, L503.6620, L100.0100, L500.4100 #### [facility] [address] [place], [address] RBC (Bld) [#/Vol] 5.41 10*6/uL Normal 4.6-6.2 [facility] Comment on above: Performed By: #### L 501.9910, L500.4050, L503.6620, L100.0100, L500.4100 #### [facility] [address] [place], [address] RDW SD 41.3 fl Normal 35.1-43.9 [facility] Comment on above: Performed By: #### L 501.9910, L500.4050, L503.6620, L100.0100, L500.4100 #### [facility] [address] [place], [address] WBC (Bld) [#/Vol] 5.6 10*3/uL Normal 4.4-11.0 [facility] Comment on above: Performed By: #### L 501.9910, L500.4050, L503.6620, L100.0100, L500.4100 #### [facility] [address] [place], [address] Carbon dioxide measurementOr dered By: Sherin Martinez on 08-07-2024 CO2 [Moles/Vol] 29.0 mmol/L 21.0-32.0 [facility] Chest PA and Lateralon 08-07 Chest PA and Lateral [facility] Imaging Services [address] [place], [place] [address] Chest PA and Lateral MR#: [id number] Acct: [id number] Name: KOLTON WALTER Rep #: [id number] : 1960 M 63 From: Víctor weston DO PCP: ROHINI Cameron Status: REG CLI Study: Chest PA and Lateral Date of Exam: 08/07/24 Exam# [id number] Ordering Dr: Sherin Martinez [id number] EXAM: XR CHEST, 2 VIEWS CLINICAL INDICATION: SOB TECHNIQUE: Frontal and lateral views of the chest. COMPARISON: 02/06/2024 FINDINGS: LUNGS AND PLEURAL SPACES: Hyperinflation of the lungs and diffuse interstitial prominence consistent with COPD. No definite focal pneumonia. No pneumothorax. No effusion. HEART: No significant abnormality. Cardiac silhouette not enlarged. MEDIASTINUM: Central airways and mediastinal contour are unremarkable. BONES/JOINTS: Osseous degenerative changes. No acute fracture. SOFT TISSUES: No significant abnormality. VASCULATURE: Atherosclerosis. RAD/Chest PA and Lateral IMPRESSION: Hyperinflation of the lungs and diffuse interstitial prominence consistent with COPD. No definite focal pneumonia. Electronically Signed: Víctor Welch DO at 22:12 EST , CC: ROHINI Martinez Nurse Ob: Signed Normal [facility] Chloride measurementOrdered By: Sherin Martinez on 08-07-2024 Chloride [Moles/Vol] 102 mmol/L 98-107 [facility] Comprehensive Metabolic Prof ilon 08-07-2024 Albumin [Mass/Vol] 4.0 g/dL Normal 3.2-5.0 [facility] Comment on above: Performed By: #### L 501.9910, L500.4050, L503.6620, L100.0100, L500.4100 #### [facility] [address] [place], [address] Albumin/Globulin [Mass ratio] 1.0 {ratio} Normal 0.9-2.4 [facility] Comment on above: Performed By: #### L 501.9910, L500.4050, L503.6620, L100.0100, L500.4100 #### [facility] [address] [place], [address] ALK P 104 U/L Normal 45-117 [facility] Comment on above: Performed By: #### L 501.9910, L500.4050, L503.6620, L100.0100, L500.4100 #### [facility] [address] [place], [address] ALT [Catalytic activity/Vol] 20 U/L Normal 16-61 [facility] Comment on above: Performed By: #### L 501.9910, L500.4050, L503.6620, L100.0100, L500.4100 #### [facility] [address] [place], [address] AST [Catalytic activity/Vol] 20 U/L Normal 15-37 [facility] Comment on above: Performed By: #### L 501.9910, L500.4050, L503.6620, L100.0100, L500.4100 #### [facility] [address] [place], [address] Bilirubin [Mass/Vol] 0.40 mg/dL Normal 0.20-1.00 [facility] Comment on above: Result Comment: For patients on eltrombopag therapy, use of Dimension [place] TBIL is not recommended. Performed By: #### L 501.9910, L500.4050, L503.6620, L100.0100, L500.4100 #### [facility] [address] [place], [address] BUN/CRE 9.1 RATIO Low 10-20 [facility] Comment on above: Performed By: #### L 501.9910, L500.4050, L503.6620, L100.0100, L500.4100 #### [facility] [address] [place], [address] CA,Total 9.4 mg/dL Normal 8.5-10.1 [facility] Comment on above: Performed By: #### L 501.9910, L500.4050, L503.6620, L100.0100, L500.4100 #### [facility] [address] [place], [address] Chloride [Moles/Vol] 102 mmol/L Normal 98-107 [facility] Comment on above: Performed By: #### L 501.9910, L500.4050, L503.6620, L100.0100, L500.4100 #### [facility] [address] [place], [address] CO2 [Moles/Vol] 29.0 mmol/L Normal 21.0-32.0 [facility] Comment on above: Performed By: #### L 501.9910, L500.4050, L503.6620, L100.0100, L500.4100 #### [facility] [address] [place], [address] Creatinine [Mass/Vol] 0.88 mg/dL Normal 0.70-1.30 [facility] Comment on above: Result Comment: The validity of the calculated GFR GFRAA in patients over 70 years has not been determined. Clinical correlation is essential. Performed By: #### L 501.9910, L500.4050, L503.6620, L100.0100, L500.4100 #### [facility] [address] [place], [address] EST GFR - AA 112 mL/min Normal >60 [facility] Comment on above: Result Comment: Afri can Omani GFR Calc Performed By: #### L [id number], L500.4050, L503.6620, L100.0100, L500.4100 #### [facility] [address] [place], [address] GAP 6 Normal 5-15 [facility] Comment on above: Performed By: #### L [id number], L500.4050, L503.6620, L100.0100, L500.4100 #### [facility] [address] [place], [address] GFR/1.73 sq M.predicted among non-blacks MDRD (S/P/Bld) [Vol rate/Area] 92 mL/min/{1.73_m2} Normal >60 [facility] Comment on above: Result Comment: Non- GFR Calc Performed By: #### L 501.9910, L500.4050, L503.6620, L100.0100, L500.4100 #### [facility] [address] [place], [address] Globulin (S) [Mass/Vol] 4.1 g/dL Normal 2.2-4.2 [facility] Comment on above: Performed By: #### L 501.9910, L500.4050, L503.6620, L100.0100, L500.4100 #### [facility] [address] [place], [address] Glucose [Mass/Vol] 90 mg/dL Normal 74-106 [facility] Comment on above: Performed By: #### L 501.9910, L500.4050, L503.6620, L100.0100, L500.4100 #### [facility] [address] [place], [address] Potassium [Moles/Vol] 5.1 mmol/L Normal 3.5-5.1 [facility] Comment on above: Performed By: #### L 501.9910, L500.4050, L503.6620, L100.0100, L500.4100 #### [facility] [address] [place], [address] Sodium [Moles/Vol] 137 mmol/L Normal 136-145 [facility] Comment on above: Performed By: #### L 501.9910, L500.4050, L503.6620, L100.0100, L500.4100 #### [facility] [address] [place], [address] T PROT 8.1 g/dL Normal 6.4-8.2 [facility] Comment on above: Performed By: #### L 501.9910, L500.4050, L503.6620, L100.0100, L500.4100 #### [facility] [address] [place], [address] Urea nitrogen [Mass/Vol] 8 mg/dL Normal 7-18 [facility] Comment on above: Performed By: #### L 501.9910, L500.4050, L503.6620, L100.0100, L500.4100 #### [facility] [address] [place], [address] Eosinophil percentageOrdered By: Sherin Martinez on 08-07-2024 Eosinophils/100 WBC (Bld) 2.7 % 0-5 [facility] Erythrocyte distribution wid th ratioOrdered By: Sherin Martinez on 08-07-2024 Erythrocyte distribution width (RBC) [Ratio] 12.7 % 11.6-14.6 [facility] Erythrocyte distribution wid th standard deviationOrdered By: Sherin Martinez on 08-07-2024 Erythrocyte distribution width (RBC) [Entitic vol] 41.3 fL 35.1-43.9 [facility] Estimated glomerular filtrat ion rate (GFR) AmericanOrdered By: Sherin Martinez on 08-07-2024 Estimated GFR (MDRD) Amer 112 mL/min >60 [facility] Comment on above: GFR Calc Glomerular filtration rate ( GFR) estimationOrdered By: Sherin Martinez on 08-07-2024 Estimated GFR (MDRD) Non-Af Amer 92 mL/min >60 [facility] Comment on above: Non- GFR Calc Glucose measurementOrdered B y: Sherin Martinez on 08-07-2024 Glucose [Mass/Vol] 90 mg/dL 74-106 [facility] Hematocrit Auto (Bld) [Volum e fraction]Ordered By: Sherinnacho Martinez on 08-07-2024 Hematocrit (Bld) [Volume fraction] 48.1 % 40-54 [facility] Hemoglobin measurementOrdere d By: Sherin Martinez on 08-07-2024 Hemoglobin (Bld) [Mass/Vol] 15.0 g/dL 13.0-16.5 [facility] High density lipoprotein (HD L) measurementOrdered By: Sherinnacho Martinez on 08-07-2024 Cholesterol in HDL [Mass/Vol] 75 mg/dL >40 [facility] Comment on above: The drugs N-Acetylcy steine and Metamizole may falsely depress this assay. Reference Range HDL <40 mg/dL Low HDL Cholesterol HDL >or= 60 mg/dL High HDL Cholesterol Immature granulocytes/100 WB C Auto (Bld)Ordered By: Sherin Martinez on 08-07-2024 Immature granulocytes/100 WBC (Bld) 0.400 % 0.0-0.9 [facility] Comment on above: IG% - Immature Granu locytes (promyelocytes, myelocytes and metamyelocytes) > 1% indicates that a LEFT SHIFT is Present. Laboratory - Chemistry and C hemistry - challengeOrdered By: Sherin Martinez on 08-07-2024 AST [Catalytic activity/Vol] 20 U/L 15-37 [facility] Lipid Profileon 08-07-2024 Cholesterol [Mass/Vol] 198 mg/dL Normal 200 [facility] Comment on above: Result Comment: <200 mg/dL Desirable 200-240 mg/dL Borderline >240 mg/dL High Risk Performed By: #### L 501.9963, L500.4050, L503.6620, L100.0100, L500.4100 #### [facility] [address] [place], [address] Cholesterol in HDL [Mass/Vol] 75 mg/dL Normal [facility] Comment on above: Result Comment: The drugs N-Acetylcysteine and Metamizole may falsely depress this assay. Reference Range HDL <40 mg/dL Low HDL Cholesterol HDL >or= 60 mg/dL High HDL Cholesterol Performed By: #### L 501.9910, L500.4050, L503.6620, L100.0100, L500.4100 #### [facility] [address] [place], [address] Cholesterol in LDL [Mass/Vol] 108 mg/dL Normal 0-130 [facility] Comment on above: Performed By: #### L 501.9910, L500.4050, L503.6620, L100.0100, L500.4100 #### [facility] [address] [place], [address] Cholesterol in VLDL [Mass/Vol] 15 mg/dL Normal 5-40 [facility] Comment on above: Performed By: #### L 501.9910, L500.4050, L503.6620, L100.0100, L500.4100 #### [facility] [address] [place], [address] Triglyceride [Mass/Vol] 74 mg/dL Normal [facility] Comment on above: Result Comment: The drugs N-Acetylcysteine and Metamizole may falsely depress this assay. Serum Triglycerides Reference Interval Normal <150 mg/dL Borderline high 150 - 199 mg/dL High 200 - 499 mg/dL Very High > or = 500 mg/dL Performed By: #### L 501.9910, L500.4050, L503.6620, L100.0100, L500.4100 #### [facility] [address] [place], [address] Low density lipoprotein (LDL ) cholesterol measurementOrdered By: Sherin Martinez on 08-07-2024 Cholesterol in LDL [Mass/Vol] 108 mg/dL 0-130 [facility] Lymphocytes Auto (Unsp spec) [#/Vol]Ordered By: Sherinnacho Martinez on 08-07-2024 Lymphocytes (Bld) [#/Vol] 1.46 10*3/uL 0.83-4.51 [facility] Lymphocytes/100 WBC Auto (Un sp spec)Ordered By: Sherin Martinez on 08-07-2024 Lymphocytes/100 WBC (Bld) 26.3 % 19-41 [facility] MCV (mean corpuscular volume ) determinationOrdered By: Sherinnacho Martinez on 08-07-2024 MCV (RBC) [Entitic vol] 88.9 fL 80-94 [facility] Mean corpuscular hemoglobin (MCH) determinationOrdered By: Sherinnacho Martinez on 08-07-2024 MCH (RBC) [Entitic mass] 27.7 pg 27.0-32.0 [facility] Mean corpuscular hemoglobin concentration (MCHC) determinationOrdered By: Sherinnacho Martinez on 08-07-2024 MCHC (RBC) [Mass/Vol] 31.2 g/dL Low 32-36 [facility] Mean platelet volume determi nationOrdered By: Sherinnacho Martinez on 08-07-2024 Platelet mean volume (Bld) [Entitic vol] 9.5 fL 6.2-12.0 [facility] Monocyte percentageOrdered B y: Sherin Martinez on 08-07-2024 Monocytes/100 WBC (Bld) 8.6 % 0-10 [facility] Neutrophil percentageOrdered By: Galva Jocelyn on 08-07-2024 Neutrophils/100 WBC (Bld) 60.9 % 47-70 [facility] Nucleated red blood cell per centageOrdered By: Sherinnacho Martinez on 08-07-2024 Nucleated RBC/100 WBC (Bld) [Ratio] 0 % 0-5 [facility] PSA,Total - Annual Screenon 08-07-2024 PSA,TOT SCREEN 3.10 ng/mL Normal 0.00-4.00 [facility] Comment on above: Result Comment: This test was performed using the TPSA assay method for the [employer] chemistry system. Values obtained with different assay methods cannot be used interchangably. When changing PSA assays in the course of monitoring a patient, additional sequential testing should be carried out to confirm baseline values. Performed By: #### L 501.9910, L500.4050, L503.6620, L100.0100, L500.4100 #### [facility] [address] [place], [address] Platelet countOrdered By: Ra rupert Martinez on 08-07-2024 Platelets (Bld) [#/Vol] 377 10*3/uL 150-450 [facility] Potassium measurementOrdered By: Sherin Martinez on 08-07-2024 Potassium [Moles/Vol] 5.1 mmol/L 3.5-5.1 [facility] RBC Auto (Bld) [#/Vol]Ordere d By: Sherin Martinez on 08-07-2024 RBC (Bld) [#/Vol] 5.41 10*6/uL 4.6-6.2 [facility] Screening prostate specific antigen (PSA) measurementOrdered By: Sherin Martinez on 08-07-2024 Prostate Specific Antigen Screen 3.10 ng/mL 0.00-4.00 [facility] Comment on above: This test was perfor med using the TPSA assay method for [employer] chemistry system. Values obtained with differentassay methods cannot be used interchangably.When changing PSA assays in the course of monitoring apatient, additional sequential testing should be carriedout to confirm baseline values. Serum anion gap measurementO rdered By: Sherin Martinez on 08-07-2024 Anion gap [Moles/Vol] 6 mmol/L 5-15 [facility] Serum globulin measurementOr dered By: Sherin Martinez on 08-07-2024 Globulin (S) [Mass/Vol] 4.1 g/dL 2.2-4.2 [facility] Serum or plasma alanine camejo otransferase (ALT) measurementOrdered By: Sherin Martinez on 08-07-2024 ALT [Catalytic activity/Vol] 20 U/L 16-61 [facility] Serum or plasma albumin isela urement (mass/volume)Ordered By: Sherin Martinez on 08-07-2024 Albumin [Mass/Vol] 4.0 g/dL 3.2-5.0 [facility] Serum or plasma alkaline fani sphatase measurementOrdered By: Sherin Martinez on 08-07-2024 ALP [Catalytic activity/Vol] 104 U/L 45-117 [facility] Serum or plasma calcium isela urement (mass/volume)Ordered By: Sherin Martinez on 08-07-2024 Calcium [Mass/Vol] 9.4 mg/dL 8.5-10.1 [facility] Serum or plasma cholesterol measurement (mass/volume)Ordered By: Sherin Martinez on 08-07-2024 Cholesterol [Mass/Vol] 198 mg/dL <200 [facility] Comment on above: <200 mg/dL Desirable 200-240 mg/dL Borderline >240 mg/dL High Risk Serum or plasma creatinine m easurement (mass/volume)Ordered By: Sherin Martinez on 08-07-2024 Creatinine [Mass/Vol] 0.88 mg/dL 0.70-1.30 [facility] Comment on above: The validity of the calculated GFR & GFRAA in patients over 70 years has not been determined. Clinical correlation is essential. Serum or plasma urea nitroge n measurement (mass/volume)Ordered By: Sherin Martinez on 08-07-2024 Urea nitrogen [Mass/Vol] 8 mg/dL 7-18 [facility] Sodium levelOrdered By: Jenae Martinez on 08-07-2024 Sodium [Moles/Vol] 137 mmol/L 136-145 [facility] Total proteinOrdered By: Sybil Martinez on 08-07-2024 Protein [Mass/Vol] 8.1 g/dL 6.4-8.2 [facility] Triglycerides measurementOrd ered By: Sherin Martinez on 08-07-2024 Triglyceride [Mass/Vol] 74 mg/dL <199 [facility] Comment on above: The drugs N-Acetylcy steine and Metamizole may falsely depress this assay.Serum Triglycerides Reference Interval Normal <150 mg/dL Borderline high 150 - 199 mg/dL High 200 - 499 mg/dL Very High > or = 500 mg/dL Very low density lipoprotein (VLDL) cholesterol measurementOrdered By: Sherin Martinez on 08-07-2024 VLDL Cholesterol 15 mg/dL 5-40 [facility] White blood cell (WBC) count Ordered By: Sherin Martinez on 08-07-2024 WBC (Bld) [#/Vol] 5.6 10*3/uL 4.4-11.0 [facility] Vital Signs Date Time Vital Sign Value Performing Clinician [place] 03-21-2025 13:59-0400 Body height 165.1 cm Sherin Martinez [employer] Work Phone: [facility] 03-21-2025 13:59-0400 Diastolic blood pressure 66 mm[Hg] Sherin Martinez [employer] Work Phone: [facility] 03-21-2025 13:59-0400 Heart rate 130 /min Sherin Jocelyn [employer] Work Phone: [facility] 03-21-2025 13:59-0400 Respiratory rate 18 /min Sherin Jocelyn [employer] PROF[employer] Work Phone: [facility] 03-21-2025 13:59-0400 SaO2% (BldA) [Mass fraction] 93 % Sherin Jocelyn [employer] Work Phone: [facility] 03-21-2025 13:59-0400 Systolic blood pressure 100 mm[Hg] Sherin Martinez [employer] PROFESSOR-C Work Phone: [facility] 02-14-2025 12:04-0400 Diastolic blood pressure 60 mm[Hg] Sherin Martinez [employer] PROFESS[employer] Work Phone: [facility] 02-14-2025 12:04-0400 Systolic blood pressure 82 mm[Hg] Sherin Colungagar [employer] PROFESSOR[employer] Work Phone: [facility] 02-14-2025 11:29-0400 Body height 165.1 cm Sherin Martinez [employer] PROFESSOR-[employer] Work Phone: [facility] 02-14-2025 11:29-0400 Body mass index (BMI) [Ratio] 16.5 kg/m2 Sherin Jocelyn [employer] Work Phone: [facility] 02-14-2025 11:29-0400 Body temperature 96.4 [degF] Sherin Jocelyn [employer] PROF[employer] Work Phone: [facility] 02-14-2025 11:29-0400 Body weight 44.9 kg Sherin Jocelyn [employer] PROFESS[employer] Work Phone: [facility] 02-14-2025 11:29-0400 Heart rate 97 /min Sherin Jocelyn [employer] PROF[employer] Work Phone: [facility] 02-14-2025 11:29-0400 Respiratory rate 18 /min Sherin Jocelyn [employer] PROFESS[employer] Work Phone: [facility] 02-14-2025 11:29-0400 SaO2% (BldA) [Mass fraction] 97 % Sherin Jcoelyn [employer] PROFESSOR-[employer] Work Phone: [facility] 10-15-2024 07:22-0400 Body mass index (BMI) [Ratio] 17.6 kg/m2 Sherin Jocelyn [employer] PROFESS[employer] Work Phone: [facility] 10-15-2024 07:22-0400 Body weight 48.08 kg Sherin Jocelyn [employer] PROFESSOR-C Work Phone: [facility] 10-15-2024 07:22-0400 Diastolic blood pressure 79 mm[Hg] Sherin Jocelyn [employer] PROFESSOR[employer] Work Phone: [facility] 10-15-2024 07:22-0400 Heart rate 96 /min Sherin Jocelyn [employer] PROFESSOR[employer]C Work Phone: [facility] 10-15-2024 07:22-0400 Respiratory rate 18 /min Sherin Jocelyn [employer] PROFESSOR-C Work Phone: [facility] 10-15-2024 07:22-0400 SaO2% (BldA) [Mass fraction] 94 % Sherin Jocelyn [employer] PROFESSOR-C Work Phone: [facility] 10-15-2024 07:22-0400 Systolic blood pressure 117 mm[Hg] Sherin Jocelyn [employer] PROFESSOR-C Work Phone: [facility] 09-06-2024 11:09-0500 Body height 165.1 cm Sherin Jocelyn [employer] PROFESSOR-C Work Phone: [facility] 09-06-2024 11:09-0500 Body mass index (BMI) [Ratio] 17.9 kg/m2 Sherin Jocelyn [employer] Work Phone: [facility] 09-06-2024 11:09-0500 Body weight 48.98 kg Sherin Jocelyn [employer] PROFESS[employer]C Work Phone: [facility] 09-06-2024 11:09-0500 Diastolic blood pressure 113 mm[Hg] Sherin Jocelny [employer] Work Phone: [facility] 09-06-2024 11:09-0500 Heart rate 101 /min Sherin Jocelyn [employer] PROFESSOR[employer] Work Phone: [facility] 09-06-2024 11:09-0500 Respiratory rate 18 /min Sherin Colungagar [employer] PROFESSOR[employer]C Work Phone: [facility] 09-06-2024 11:09-0500 Systolic blood pressure 160 mm[Hg] Sherin Colungagar [employer] PROFESSOR-C Work Phone: [facility] Encounters Encounter Date Encounter Type Care Provider Facility Start: 06-12-2025 ambulatory Bhargav Demiter Facility :[facility] Start: 06-02-2025 ambulatory Bhargav Demiter Facility :[facility] Start: 04-22-2025 End: 04-22-2025 ambulatory Sherin Jocelyn [employer] PROFESSOR-C Work Phone: -Pulmonary Services/Neurology Start: 04-22-2025 End: 04-22-2025 Patient encounter procedure Bhargav Moraiter PA -Pulmonary Services/Neurology Work Phone: Start: 04-22-2025 End: 04-22-2025 ambulatory Bhargav Demumang Facility:[facility] Start: 03-21-2025 End: 03-21-[address] Ned Harrison MD -[facility] Work Phone: Start: 03-21-2025 End: 03-21-2025 ambulatory Sherin Jocelyn [employer]C Work Phone: -[facility] Start: 02-14-2025 End: 02-14-2025 Patient encounter procedure Bhargav Parra PA -[facility] Work Phone: Start: 02-14-2025 End: 02-14-2025 ambulatory Sherin Jocelyn [employer]C Work Phone: -[facility] Start: 02-12-2025 End: 02-12-2025 ambulatory Sherin Jocelyn [employer] Work Phone: -Laboratory Start: 02-12-2025 End: 02-12-2025 Patient encounter procedure Bhargav Parra PA -Laboratory Work Phone: Start: 02-12-2025 End: 02-12-2025 ambulatory Sherin Jocelyn Facility:[facility] Start: 10-15-2024 End: 10-15-2024 Patient encounter procedure Bhargav Parra [place] -[facility] Work Phone: Start: 10-15-2024 End: 10-15-2024 ambulatory Sherin Jocelyn Facility:[facility] Start: 10-09-2024 ambulatory Ned Harrison Facility:[facility] Start: 10-09-2024 Non-patient / Non-visit Dr. Mitchell APONTE -[facility] Start: 10-09-2024 End: 10-09-2024 ambulatory Sherin Jocelyn [employer] PROFESS[employer] Work Phone: [facility] Work Phone: Start: 10-09-2024 End: 10-09-[address] Ned Harrison MD -Cardiovascular Services Work Phone: Start: 10-09-2024 End: 10-09-2024 ambulatory Ned Harrison Facility:[facility] Start: 09-06-2024 End: 09-06-[address] Ned Harrison MD -[facility] Work Phone: Start: 09-06-2024 End: 09-06-2024 ambulatory Nedsilver Harrison Facility:[facility] Start: 08-27-2024 Encounter for genera l adult medical examination with abnormal findings Sherin Martinez [facility] Start: 08-07-2024 End: 08-07-2024 Patient encounter procedure Sherin Martinez [employer] SCI[employer] PROFESSOR-C -Laboratory, Jil Romero [facility] Start: 08-07-2024 End: 08-07-2024 ambulatory Sherin Martinez Facility:[facility] Procedures Date Procedure Procedure Detail Performing Clinician Start: 10-09-2024 Radionuclide imaging of perfusion of myocardium under exercise stress Sherin Martinez [employer] Work Phone: Start: 09-06-2024 Evaluation of diagno stic study results Sherin Martinez [employer] PROFESS[employer] Work Phone: Start: 08-07-2024 X-ray of chest, PA a nd lateral views Sherin Martinez [employer] PROFESSOR-C Work Phone: Plan of Treatment Date Care Activity Detail Author Start: 03-21-2025 End: 03-21-2025 Evaluation of diagnostic study results [facility] Lipid 1995 panel - S flako or Plasma [facility] Lipid 1995 panel - S flako or Plasma [facility] Payers Date Payer Category Payer Private Health Insurance [id number] 2024 Self-pay Unknown [id number] Unknown [id number] 2.16.8 [id number] Unknown [id number] 2.16.8 [id number] Unknown [id number] 2.16.8 [id number] Unknown [id number] 2.16.8 [id number] Unknown [id number] 2.16.8 [id number] Unknown [id number] 2.16.8 [id number] Unknown [id number] 2.16.8 [id number] Unknown [id number] 2.16.8 [id number] Unknown [id number] 2.16.8 [id number] Unknown [id number] 2.16.8 [id number] Unknown [id number] 2.16.8 [id number] Social History Date Type Detail Facility Start[facility] Start: 10-17-2024 Sex Male (finding) [facility] Start: 1960 Sex Assigned At Male [facility] Sex Male [facility] Evaluation note 02-14-2025 Note Date & Type Note Facility 02-14-2025 Evaluation note Diagnosis Onset Date Resolution SOB (shortness of breath) acute February 14, 2025 11:16am CAD (coronary artery disease) chronic February 14, 2025 11:16am Hx of non-ST elevation myocardial infarction (NSTEMI) chronic February 14, 2025 11:16am Hypertension chronic February 14, 2 025 11:16am [facility] Work Phone: Evaluation note 02-14-2025 Note Date & Type Note Facility 02-14-2025 Evaluation note Diagnosis Onset Date Resolution SOB (shortness of breath) acute February 14, 2025 11:16am CAD (coronary artery disease) chronic February 14, 2025 11:16am Hx of non-ST elevation myocardial infarction (NSTEMI) chronic February 14, 2025 11:16am Hypertension chronic February 14, 2 025 11:16am Hypotension acute March 21, 2025 1:37pm Tachycardia acute March 21, 2025 1:37pm [facility] Work Phone: Evaluation note 09-06-2024 Note Date & Type Note Facility 09-06-2024 Evaluation note Diagnosis Onset Date Resolution CAD (coronary artery disease) chronic September 06, 025 10:40am Hypertension chronic August 10:40am SOB (shortness of breath) acute October 15, 2024 10:56am CAD (coronary artery disease) chronic October 15, 2024 10:56am Hx of non-ST elevation myocardial infarction (NSTEMI) chronic October 15, 2024 10:56am Hypertension chronic October 15, 2024 10:56am [facility] Work Phone: Evaluation note Note Date & Type Note Facility Evaluation note Diagnosis Onset Date Resolution SOB (shortness of breath) acute February 14, 2025 11:16am CAD (coronary artery disease) chronic February 14, 2025 11:16am Hx of non-ST elevation myocardial infarction (NSTEMI) chronic February 14, 2025 11:16am Hypertension chronic February 14 11:16am [facility] Work Phone: Hospital Discharge instructions Note Date & Type Note Facility Hospital Discharge instructions Ambulatory OrdersPulmonary Medicine Location: None Selected [facility] Work Phone: Reason for referral (narrative) Note Date & Type Note Facility Reason for referral (narrative) No reason for referral information available [facility] Work Phone: Chief Complaint and Reason for Visit Chief Complaint Admit Date OLD M.I/EST (JOCELYN) September 06, 2024 10:40am CAD October 09, 2024 6:4 5am 4 W FU October 15, 2024 10: 56am Reason for Visit Admit Date CAD (coronary artery disease) August 242024 10:40am Hypertension September 06, 2024 10:40am SOB (shortness of breath) October 15 10:56am CAD (coronary artery disease) September 10:56am Hx of non-ST elevation myocardial infarc tion (NSTEMI) October 15, 2024 10:56am Hypertension March 25th, 2025 10: 56am Chief Complaint Admit Date INT LAB ORDER February 12, 2025 4:12 pm 4 M FU February 14, 2025 11:1 6am Reason for Visit Admit Date SOB (shortness of breath) February 14 11:16am CAD (coronary artery disease) February 14, 2025 11:16am Hx of non-ST elevation myocardial infarc tion (NSTEMI) February 14, 2025 11:16am Hypertension February 14, 2025 11:1 6am Chief Complaint Admit Date INT LAB ORDER February 12, 2025 4:12 pm 4 M FU February 14, 2025 11:1 6am Blood pressure check March 21, 2025 1 :37pm Reason for Visit Admit Date SOB (shortness of breath) February 14 11:16am CAD (coronary artery disease) February 14, 2025 11:16am Hx of non-ST elevation myocardial infarc tion (NSTEMI) February 14, 2025 11:16am Hypertension February 14, 2025 11:1 6am Hypotension March 21, 2025 1: 37pm Tachycardia March 21, 2025 1: 37pm Chief Complaint Admit Date INT LAB ORDER February 12, 2025 4:12 pm 4 M FU February 14, 2025 11:1 6am Blood pressure check March 21, 2025 1 :37pm TACHYCARDIA April 22, 2025 12:46pm Family History No Family History Records Found Relationship Condition Age at Onset Recorded Date/T dileep grandmother Diabetes mellitus Unknown grandfather Malignant neoplasm Unknown Summary Purpose Advance Directives No Advanced Directives Records Found Additional Source Comments Care Teams (unrecognized sec tion and content) Team Status: Active Member Role Status Dates ROHINI Cameron Primary Care Provider Active Team Status: Inactive Member Role Status Dates ROHINI Cameron Primary Care Provider Active Start: August 07, 2024 End: August 07, 2024 ROHINI Cameron Attending Provider Active St art: August 07, 2024 End: August 07, 2024 ROHINI Cameron Referring Provider Active St art: August 07, 2024 End: August 07, 2024 Team Status: Inactive Member Role Status Dates ROHINI Cameron Primary Care Provider Active Start: September 06, 2024 End: September 06, 2024 Sherin Martinez [employer]-C Referring Provider Active St art: September 06, 2024 End: September 06, 2024 Dr. Ned Harrison MD Attending Provider Active S tart: September 06, 2024 End: September 06, 2024 Team Status: Inactive Member Role Status Dates Sherin Martinez , [employer] PROFESS[employer]-C Primary Care Provider Active Start: October 09, 2024 End: October 09, 2024 Dr. Ned Harrison MD Attending Provider Active S tart: October 09, 2024 End: October 09, 2024 Dr. Ned Harrison MD Referring Provider Active S tart: October 09, 2024 End: October 09, 2024 Team Status: Active Member Role Status Dates Sherin Martinez [employer] PROF[employer]-C Primary Care Provider Active Start: October 09, 2024 Dr. Ned Harrison MD Attending Provider Active S tart: October 09, 2024 Team Status: Inactive Member Role Status Dates Sherin Martinez [employer] PROF[employer]-C Primary Care Provider Active Start: October 15, 2024 End: October 15, 2024 Sherin Martinez , [employer] PROFESS[employer]-C Referring Provider Active St art: October 15, 2024 End: October 15, 2024 KELLY Herrera Attending Provider Active St art: October 15, 2024 End: October 15, 2024 Team Status: Active Member Role/Relationship Status Dates Sherin Martinez , [employer] PROFESSOR-C Primary Care Provider Active Team Status: Active Member Role/Relationship Status Dates Sherin Martinez , [employer] PROFESSOR-C Primary Care Provider Active Start: February 12, 2025 KELLY Herrera Attending Provider Active St art: February 12, 2025 KELLY Herrera Referring Provider Active St art: February 12, 2025 Team Status: Inactive Member Role/Relationship Status Dates Sherin Martinez , [employer] PROFESSOR-C Primary Care Provider Active Start: February 14, 2025 End: February 14, 2025 Sherin Martinez , [employer] PROFESSOR-C Referring Provider Active St art: February 14, 2025 End: February 14, 2025 KELLY Herrera Attending Provider Active St art: February 14, 2025 End: February 14, 2025 Team Status: Inactive Member Role/Relationship Status Dates Sherin Martinez [employer] PROFESSOR-C Primary Care Provider Active Start: February 12, 2025 End: February 12, 2025 KELLY Herrera Attending Provider Active St art: February 12, 2025 End: February 12, 2025 KELLY Herrera Referring Provider Active St art: February 12, 2025 End: February 12, 2025 Team Status: Inactive Member Role/Relationship Status Dates Sherin Martinez , [employer] PROFESS[employer]-C Primary Care Provider Active Start: March 21, 2025 End: March 21, 2025 Sherin Martinez , [employer] PROFESSOR-C Referring Provider Active St art: March 21, 2025 End: March 21, 2025 Dr. Ned Harrison MD Attending Provider Active S tart: March 21, 2025 End: March 21, 2025 Team Status: Active Member Role/Relationship Status Dates Sherin Martinez [employer] PROFESSOR-C Primary care physician Active Team Status: Inactive Member Role/Relationship Status Dates Sherin Martinez , [employer] PROFESSOR-C Primary care physician Active Start: February 12, 2025 End: February 12, 2025 KELLY Herrera Attending physician Active S tart: February 12, 2025 End: February 12, 2025 KELLY Herrera Referring Provider Active St art: February 12, 2025 End: February 12, 2025 Team Status: Inactive Member Role/Relationship Status Dates Sherin Martinez [employer] PROFESS[employer]-C Primary care physician Active Start: February 14, 2025 End: February 14, 2025 Sherin Martinez , [employer] PROFESSOR-C Referring Provider Active St art: February 14, 2025 End: February 14, 2025 KELLY Herrera Attending physician Active S tart: February 14, 2025 End: February 14, 2025 Team Status: Inactive Member Role/Relationship Status Dates Sherin Martinez , [employer] PROF[employer]C Primary care physician Active Start: March 21, 2025 End: March 21, 2025 Sherin Martinez , [employer] PROFESSOR-C Referring Provider Active St art: March 21, 2025 End: March 21, 2025 Dr. Ned Harrison MD Attending physician Active Start: March 21, 2025 End: March 21, 2025 Team Status: Inactive Member Role/Relationship Status Dates Sherin Martinez , [employer] PROFESSOR-C Primary care physician Active Start: April 22, 2025 End: April 22, 2025 Bhargav Demiter , PA Attending physician Active S tart: April 22, 2025 End: April 22, 2025 KELLY Herrera Referring Provider Active art: April 22, 2025 End: April 22, 2025 Goals (unrecognized section and content) Goals may be documented in a n alternate sectionGoals may be documented in an alternate sectionGoals may be documented in an alternate sectionGoals may be documented in an alternate sectionGoals may be documented in an alternate section (unrecognized sect ion and content) No Status Records Found INFORMATION SOURCE (unrecogn ized section and content) DATE CREATED AUTHOR 06/05/2025 [facility] FOR RECORDS PERTAINING TO PATIENTS WHO ARE OR HAVE BEEN ENROLLED IN A CHEMICAL DEPENDENCY/SUBSTANCEABUSE PROGRAM, SOME INFORMATION MAY BE OMITTED. This clinical summary was aggregated from multiple sources. Caution should be exercised in using it in the provision of clinical care. This summary normalizes information from multiple sources, and as a consequence, information in this document may materially change the coding, format and clinical context of patient data. In addition, data may be omitted in some cases. CLINICAL DECISIONS SHOULD BE BASED ON THE PRIMARY CLINICAL RECORDS. [employer] provides no warranty or guarantee of the accuracy or completeness of information in this document.
== END | disposition home or self-care (01) ==
LOC: PSN 06:58
PROVIDERS: PCP Nurse Practitioner Family; Referring Provider Internal Medicine Critical Care Medicine; Visit Provider Internal Medicine Critical Care Medicine
DX: J44.9 Chronic obstructive pulmonary disease, unspecified (principal)
CPT/HCPCS: 94060; 94726; 94729

== ENCOUNTER → 2025-06-27 | Outpatient (CLI) | payer OTHER, SELFPAY ==
--- OUTSIDE RECORDS SUMMARY | 2025-06-27 08:44 | XMS RPT_ITS | CCD ---
Author Organization [facility] Care Team Providers Care Ice Skater Name Role Phone Jocelyn HOUSE DESIGNER-C, Sherin Primary Care Provider Jocelyn HOUSE DESIGNER-C, Sherin Attending Provider [phone] Jocelyn HOUSE DESIGNER-C, Sherin Referring Provider Christy APONTE, Dr. Marino Attending Provider [phone] Ned Harrison MD Referring Provider [phone] Ynes Hectoryler Attending Provider [phone] Jocelyn HOUSE DESIGNER-C, Sherin Primary Care Provider Ynes Hectoryler Attending Provider Aida MENDOZA Bhargav Referring Provider [phone] Jocelyn HOUSE DESIGNER-C, Sherin Referring Provider Christy APONTE, Dr. Marino Attending Provider [phone] Jocelyn HOUSE DESIGNER-C, Sherin Primary Care Physician Bhargav Hector Attending [...] Bhargav Referring Unavailable Demiter, Bhargav Attending Unavailable [facility] Primary [facility] Unavailable Demiter, Bhargav Referring Unavailable Demiter, Bhargav Attending Unavailable [facility] Primary [facility] Unavailable [facility] Unavailable [facility] Attending Unavailable [facility] Referring Unavailable ChristyNed tan Attending Unavailable [facility] Referring Unavailable [facility] Primary [facility] Unavailable Ned Harrison Attending Unavailable [facility] Unavailable Medications Current Medications Medication Drug Class(es) Dates Sig (Normalized) Sig (Original) [id number] 200 actuat albuterol 0.09 mg/actuat metered dose [...] Office Visit Reporton 2024 Office Visit Report [facility] [address] [place] [address] OFFICE VISIT Date of Service: 03/21/25 MR#: [id number] Acct: [id number] Patient: KOLTON WALTER Rep #: [id number] : 1960 Provider: Dr. Ned Harrison MD Age/Sex: 64/M Location: [facility] Status: Signed Intake Vital Signs 02/14/25 11:29 [...] with activity as well. To establish with [facility] 05/01/25. Denies chest pain. No [...] Orders: Orders 12 Lead EKG performed by [facility] 03/21/25 R00.0 - Tachycardia, unspecified 03/21/25 1525 Date Bhargav MENDOZA 03/24/25 0839 Cosigner Signature: Date (if applicable) Ned Harrison MD CC: Normal [facility] Cardiology Visit Reporton Cardiology Visit Report [facility] [address] [place] [address] OFFICE VISIT Date of Service: 02/14/25 MR#: [id number] Acct: [id number] Name: KOLTON WALTER Rep #: [id number] : 1960 Provider: KELLY Herrera Age/Sex: 64/M Location: [facility] Status: Signed HPI HPI History of [...] air Intake Visit Reasons: 4 M FU Marriage And Family Counselor Required: No Accompanied by: Self Is patient [...] Negative epis (more content not included)... Normal [facility] Calculated very low density lipoprotein (VLDL) cholesterol measurementOrdered By: Bhargav Parra on 02-12-2025 Calculated very low density lipoprotein (VLDL) cholesterol measurement 10 mg/dL 5-40 [facility] LDL calc ser/plasOrdered By: Bhargav Parra on 02-12-2025 Cholesterol in LDL [Mass/Vol] 99 mg/dL [facility] Comment on above: Qkhfdgejkc=247-140 m g/dL & Higher Ghqr=633 mg/dL or greater Lipid Profileon 02-12-2025 CHOL:HDL 2.56 Normal [facility] Comment on above: Performed By: #### L 500.4100 #### [facility] [address] [facility] [place], [address] Cholesterol [Mass/Vol] 179 mg/dL Normal <=[address] [facility] Comment on above: Result Comment: Chol esterol level, Desirable <200 mg/dL Borderline high cholesterol 200-239 mg/dL High cholesterol >=240 mg/dL Recommendations of the NCEP Adult Treatment Panel for the following risk-cutoff thresholds for the [place] population. Performed By: #### L 500.4100 #### [facility] [address] [place], [address] Cholesterol in HDL [Mass/Vol] 70 mg/dL Normal [facility] Comment on above: Result Comment: Rocio onal Cholesterol Education Program (NCEP) guidelines: <40 mg/dL: Low HDL-cholesterol (major risk factor for CHD) >= 60 mg/dL: High HDL-cholesterol (negative risk factor for CHD) HDL-cholesterol is affected by a number of factors, e.g. smoking, exercise, hormones, sex and age. Performed By: #### L 500.4100 #### [facility] [address] [place], [address] Cholesterol in LDL [Mass/Vol] 99 mg/dL Normal [facility] Comment on above: Result Comment: Bord svtuwt=043-673 mg/dL Higher Vbwm=383 mg/dL or greater Performed By: #### L 500.4100 #### [facility] [address] [place], [address] Cholesterol in VLDL [Mass/Vol] 10 mg/dL Normal 5-40 [facility] Comment on above: Performed By: #### L 500.4100 #### [facility] [address] [place], [address] Triglyceride [Mass/Vol] 49 mg/dL Normal [facility] Comment on above: Result Comment: The drugs N-Acetylcysteine and Metamizole may falsely depress this assay. Normal range: <150 mg/dL Borderline High: 150-199 mg/dL High: 200-499 mg/dL Very High: >500 mg/dL Performed By: #### L 500.4100 #### [facility] [address] [place], [address] Screening total cholesterol/ high density lipoprotein (HDL) cholesterol ratioOrdered By: Bhargav Parra on 02-12-2025 Cholesterol.total/Carmelina sterol in HDL [Mass ratio] 2.56 {ratio} [facility] Serum or plasma cholesterol in HDL measurement (mass/volume)Ordered By: Bhargav Parra on 02-12-2025 Cholesterol in HDL [Mass/Vol] 70 mg/dL >40 [facility] Comment on above: National Cholesterol Education Program (NCEP) guidelines:<40 mg/dL: Low HDL-cholesterol (major risk factor for CHD)>= 60 mg/dL: High HDL-cholesterol (negative risk factor for CHD)HDL-cholesterol is affected by a number of factors, e.g. smoking, exercise, hormones, sex and age. Serum or plasma cholesterol measurement (mass/volume)Ordered By: Bhargav Parra on 02-12-2025 Cholesterol [Mass/Vol] 179 mg/dL <201 [facility] Comment on above: Cholesterol level, D esirable <200 mg/dLBorderline high cholesterol 200-239 mg/dLHigh cholesterol >=240 mg/dLRecommendations of the NCEP Adult Treatment Panel for the following risk-cutoff thresholds for the [place] population. Triglycerides measurementOrd ered By: Bhargav Parra on 02-12-2025 Triglyceride [Mass/Vol] 49 mg/dL <199 [facility] Comment on above: The drugs N-Acetylcy steine and Metamizole may falsely depress this assay. Normal range: <150 mg/dLBorderline High: 150-199 mg/dLHigh: 200-499 mg/dLVery High: >500 mg/dL Cardiology Visit Reporton Cardiology Visit Report [facility] [address] [place] [address] OFFICE VISIT Date of Service: 10/15/24 MR#: [id number] Acct: [id number] Name: KOLTON WALTER Rep #: [id number] : 1960 Provider: KELLY Herrera Age/Sex: 64/M Location: [facility] Status: Signed HPI HPI History of [...] follow-up with PCP and possibly see a procurement representative. Patient reports fatigue over the last 6 [...] air Intake Visit Reasons: 4 W FU Marriage And Family Counselor Required: No Accompanied by: Self Is patient [...] hr (Toprol XL) Ejection fraction %: 55 [facility] Medical History COPD (chronic obstructive pulmonary disease) [...] vomiting, heartburn, (more content not included)... Normal [facility] Cardiovascular stress test r eportOrdered By: Ned Harrison on 10-09-2024 Study report [facility] [address] [place] [address] MR#: [id number] Acct: [id number] Name: KOLTON WALTER Rep #: [id number] : 1960 64 From: Ned Harrison MD [...] ~ Date Dictated: 10/09/241800 Date Transcribed: 10/09/241800 Electric Wirer: CO Signed [facility] Work Phone: Echo Completeon 10-09-2024 Echo Complete [facility] [address] [facility] [place] [address] Echo Complete 10/09/24 0822 MR#: [id number] Acct: [id number] Name: KOLTON WALTER Rep #: [id number] : 1960 64 From: Ned Harrison MD [...] Date Dictated: 10/09/2422 Date Transcribed: 10/09/24 131 Electric Wirer: Signed Normal [facility] Echocardiogram study reportO rdered By: Ned Harrison on 10-09-2024 Study report [facility] [address] [place] [address] Echo Complete 10/09/24 0822 MR#: [id number] Acct: [id number] Name: KOLTON WALTER Rep #:[id number] : 1960 64 From: Ned Leach Attending Dr: Dr. Ned Harrison MD S tatus: REG CLI Ordering Dr: Ned Harrison MD Date: Location: [facility] Sex: M C Admitted: Reason For [...] 1313 Date _ Ned Harrison MD CC: HOUSE DESIGNER-C Sherin Martinez; Dr. Ned Harrison MD ~ Date Dictated: 10/09/24821 Date Transcribed: 10/09/24 1313 Electric Wirer: Signed [facility] Work Phone: Stress Reporton 10-09-2024 Stress Report [facility] [address] [place] [address] MR#: [id number] Acct: [id number] Name: KOLTON WALTER Rep #: [id number] : 1960 64 From: Ned Harrison MD [...] MD Date Dictated: 10/09/241800 Date Transcribed: 10/09/241800 Electric Wirer: CO Signed Normal [facility] 12 Lead EKG performed by [facility] on 09-06-2024 12 Lead EKG performed by [address] [place] [address] 12 Lead EKG performed by [facility] 09/06/241107 MR#: [id number] Acct: [id number] Name: KOLTON WALTER Rep #: [id number] : 1960 64 From: Ned Harrison MD Attending Dr: Dr. Ned Harrison MD Status: DEP A MB Ordering Dr: Ned Harrison MD Date: 09/06/24 Location: [facility] Sex: M C Admitted: BMS/12 Lead EKG performed by [facility] ECG Report Interpretation ---Sinus Rhythm -Short GA syndrome Patricia = 118-RSR(V1) -nondiagnostic. BORDERLINE RHYTHMElectronically signed on 09/09/2024 at 08:07 by Ned Harrisonwood Software Version 8610 09/09/24 0812 Date Ned Harrison MD CC: ROHINI Martinez Date Dictated: 09/06/241107 Date Transcribed: 09/06/241107 Electric Wirer: CO Signed Normal [facility] Cardiology Visit Reporton Cardiology Visit Report [facility] [address] [place], [place] [address] OFFICE VISIT Date of Service: 09/06/24 MR#: [id number] Acct: [id number] Name: KOLTON WALTER Rep #: [id number] : 1960 Provider: Dr. Ned Harrison MD Age/Sex: 64/M Location: [facility] Status: Signed HPI HPI History of [...] his medications he has not seen a data entry supervisor in years. He presents now complaining of [...] NIBP Intake Visit Reasons: OLD M.I/EST (JOCELYN) Marriage And Family Counselor Required: No Is patient in pain?: No [...] visual inspecti (more content not included)... Normal [facility] Absolute neutrophil countOrd ered By: Sherin Martinez on 08-07-2024 Neutrophils (Bld) [#/Vol] 3.4 10*3/uL 2.0-7.7 [facility] Albumin to globulin ratioOrd ered By: Sherin Martinez on 08-07-2024 Albumin/Globulin [Mass ratio] 1.0 {ratio} 0.9-2.4 [facility] BNP (brain natriuretic pepti de measurement)Ordered By: Sherin Martinez on 08-07-2024 Natriuretic peptide B (Bld) [Mass/Vol] 14.0 pg/mL 0-100 [facility] BNP,B-Type NATRIURETIC PEPTI Rafi 08-07-2024 Natriuretic peptide B (Bld) [Mass/Vol] 14.0 pg/mL Normal 0-100 [facility] Comment on above: Performed By: #### L 501.9910, L500.4050, L503.6620, L100.0100, L500.4100 #### [facility] [address] [place] [address]. [place], [address] Basophil percentageOrdered B y: Sherin Martinez on 08-07-2024 Basophils/100 WBC (Bld) 1.1 % High 0-1 [facility] Bilirubin, totalOrdered By: Sherin Martinez on 08-07-2024 Bilirubin [Mass/Vol] 0.40 mg/dL 0.20-1.00 [facility] Comment on above: For patients on eltr ombopag therapy, use of Dimension Lawley TBIL is not recommended. Blood urea nitrogen (BUN)/cr eatinine ratioOrdered By: Sherin Martinez on 01-15-2025 Urea nitrogen/Creatinine [Mass ratio] 9.1 mg/mg Low 10-20 [facility] CBC W/Diff, Automatedon 07-24-2024 Absolute Lymph 1.46 X10 3/uL Normal 0.83-4.51 [facility] Comment on above: Performed By: #### L 501.9910, L500.4050, L503.6620, L100.0100, L500.4100 #### [facility] [address] [place], [address] Absolute Neut 3.4 X10 3/uL Normal 2.0-7.7 [facility] Comment on above: Performed By: #### L 501.9910, L500.4050, L503.6620, L100.0100, L500.4100 #### [facility] [address] [place], [address] Basophils/100 WBC (Bld) 1.1 % High 0-1 [facility] Comment on above: Performed By: #### L 501.9910, L500.4050, L503.6620, L100.0100, L500.4100 #### [facility] [address] [place], [address] Eosinophils/100 WBC (Bld) 2.7 % Normal 0-5 [facility] Comment on above: Performed By: #### L 501.9910, L500.4050, L503.6620, L100.0100, L500.4100 #### [facility] [address] [place], [address] Erythrocyte distribution width (RBC) [Ratio] 12.7 % Normal 11.6-14.6 [facility] Comment on above: Performed By: #### L 501.9910, L500.4050, L503.6620, L100.0100, L500.4100 #### [facility] [address] [place], [address] Hematocrit (Bld) [Volume fraction] 48.1 % Normal 40-54 [facility] Comment on above: Performed By: #### L 501.9910, L500.4050, L503.6620, L100.0100, L500.4100 #### [facility] [address] [place], [address] Hemoglobin (Bld) [Mass/Vol] 15.0 g/dL Normal 13.0-16.5 [facility] Comment on above: Performed By: #### L 501.9910, L500.4050, L503.6620, L100.0100, L500.4100 #### [facility] [address] [place], [address] IG% 0.400 Normal 0.0-0.9 [facility] Comment on above: Result Comment: IG% - Immature Granulocytes (promyelocytes, myelocytes and metamyelocytes) > 1% indicates that a LEFT SHIFT is Present. Performed By: #### L 501.9910, L500.4050, L503.6620, L100.0100, L500.4100 #### [facility] [address] [place], [address] Lymphocytes/100 WBC (Bld) 26.3 % Normal 19-41 [facility] Comment on above: Performed By: #### L 501.9910, L500.4050, L503.6620, L100.0100, L500.4100 #### [facility] [address] [place], [address] MCH (RBC) [Entitic mass] 27.7 pg Normal 27.0-32.0 [facility] Comment on above: Performed By: #### L 501.9910, L500.4050, L503.6620, L100.0100, L500.4100 #### [facility] [address] [place], [address] MCHC (RBC) [Mass/Vol] 31.2 g/dL Low 32-36 [facility] Comment on above: Performed By: #### L 501.9910, L500.4050, L503.6620, L100.0100, L500.4100 #### [facility] [address] [place], [address] MCV (RBC) [Entitic vol] 88.9 fL Normal 80-94 [facility] Comment on above: Performed By: #### L 501.9910, L500.4050, L503.6620, L100.0100, L500.4100 #### [facility] [address] [place], [address] Monocytes/100 WBC (Bld) 8.6 % Normal 0-10 [facility] Comment on above: Performed By: #### L 501.9910, L500.4050, L503.6620, L100.0100, L500.4100 #### [facility] [address] [place], [address] Neutrophils/100 WBC (Bld) 60.9 % Normal 47-70 [facility] Comment on above: Performed By: #### L 501.9910, L500.4050, L503.6620, L100.0100, L500.4100 #### [facility] [address] [place], [address] Nucleated RBC (Bld) [#/Vol] 0 10*3/uL Normal 0-5 [facility] Comment on above: Performed By: #### L 501.9910, L500.4050, L503.6620, L100.0100, L500.4100 #### [facility] [address] [place], [address] Platelet mean volume (Bld) [Entitic vol] 9.5 fL Normal 6.2-12.0 [facility] Comment on above: Performed By: #### L 501.9910, L500.4050, L503.6620, L100.0100, L500.4100 #### [facility] [address] [place], [address] Platelets (Bld) [#/Vol] 377 10*3/uL Normal 150-450 [facility] Comment on above: Performed By: #### L 501.9910, L500.4050, L503.6620, L100.0100, L500.4100 #### [facility] [address] [place], [address] RBC (Bld) [#/Vol] 5.41 10*6/uL Normal 4.6-6.2 [facility] Comment on above: Performed By: #### L 501.9910, L500.4050, L503.6620, L100.0100, L500.4100 #### [facility] [address] [place], [address] RDW SD 41.3 fl Normal 35.1-43.9 [facility] Comment on above: Performed By: #### L 501.9910, L500.4050, L503.6620, L100.0100, L500.4100 #### [facility] [address] [place], [address] WBC (Bld) [#/Vol] 5.6 10*3/uL Normal 4.4-11.0 [facility] Comment on above: Performed By: #### L 501.9910, L500.4050, L503.6620, L100.0100, L500.4100 #### [facility] [address] [place], [address] Carbon dioxide measurementOr dered By: Sherin Martinez on 08-07-2024 CO2 [Moles/Vol] 29.0 mmol/L 21.0-32.0 [facility] Chest PA and Lateralon 08-07 Chest PA and Lateral [facility] Imaging Services [address] [place], [place] [address] Chest PA and Lateral MR#: [id number] Acct: [id number] Name: KOLTON WALTER Rep #: [id number] : 1960 M 63 From: Víctor weston DO PCP: ROHINI Cameron Status: REG CLI Study: Chest PA and Lateral Date of Exam: 08/07/24 Exam# [id number] Ordering Dr: Sherin Martinez [id number] EXAM: XR CHEST, 2 VIEWS CLINICAL INDICATION: [...] at 22:12 EST , CC: ROHINI Martinez Electric Wirer: Signed Normal [facility] Chloride measurementOrdered By: Sherin Martinez on 08-07-2024 Chloride [Moles/Vol] 102 mmol/L 98-107 [facility] Comprehensive Metabolic Prof ilon 08-07-2024 Albumin [Mass/Vol] 4.0 g/dL Normal 3.2-5.0 [facility] Comment on above: Performed By: #### L 501.9910, L500.4050, L503.6620, L100.0100, L500.4100 #### [facility] [address] [place], [address] Albumin/Globulin [Mass ratio] 1.0 {ratio} Normal 0.9-2.4 [facility] Comment on above: Performed By: #### L 501.9910, L500.4050, L503.6620, L100.0100, L500.4100 #### [facility] [address] [place], [address] ALK P 104 U/L Normal 45-117 [facility] Comment on above: Performed By: #### L 501.9910, L500.4050, L503.6620, L100.0100, L500.4100 #### [facility] [address] [place], [address] ALT [Catalytic activity/Vol] 20 U/L Normal 16-61 [facility] Comment on above: Performed By: #### L 501.9910, L500.4050, L503.6620, L100.0100, L500.4100 #### [facility] [address] [place], [address] AST [Catalytic activity/Vol] 20 U/L Normal 15-37 [facility] Comment on above: Performed By: #### L 501.9910, L500.4050, L503.6620, L100.0100, L500.4100 #### [facility] [address] [place], [address] Bilirubin [Mass/Vol] 0.40 mg/dL Normal 0.20-1.00 [facility] Comment on above: Result Comment: For patients on eltrombopag therapy, use of Dimension Lawley TBIL is not recommended. Performed By: #### L 501.9910, L500.4050, L503.6620, L100.0100, L500.4100 #### [facility] [address] [place], [address] BUN/CRE 9.1 RATIO Low 10-20 [facility] Comment on above: Performed By: #### L 501.9910, L500.4050, L503.6620, L100.0100, L500.4100 #### [facility] [address] [place], [address] CA,Total 9.4 mg/dL Normal 8.5-10.1 [facility] Comment on above: Performed By: #### L 501.9910, L500.4050, L503.6620, L100.0100, L500.4100 #### [facility] [address] [place], [address] Chloride [Moles/Vol] 102 mmol/L Normal 98-107 [facility] Comment on above: Performed By: #### L 501.9910, L500.4050, L503.6620, L100.0100, L500.4100 #### [facility] [address] [place], [address] CO2 [Moles/Vol] 29.0 mmol/L Normal 21.0-32.0 [facility] Comment on above: Performed By: #### L 501.9910, L500.4050, L503.6620, L100.0100, L500.4100 #### [facility] [address] [place], [address] Creatinine [Mass/Vol] 0.88 mg/dL Normal 0.70-1.30 [facility] Comment on above: Result Comment: The validity of the calculated GFR GFRAA in patients over 70 years has not been determined. Clinical correlation is essential. Performed By: #### L 501.9910, L500.4050, L503.6620, L100.0100, L500.4100 #### [facility] [address] [place], [address] EST GFR - AA 112 mL/min Normal >60 [facility] Comment on above: Result Comment: Afri can Icelandic GFR Calc Performed By: #### L 501.9910, L500.4050, L503.6620, L100.0100, L500.4100 #### [facility] [address] [place], [address] GAP 6 Normal 5-15 [facility] Comment on above: Performed By: #### L 501.9910, L500.4050, L503.6620, L100.0100, L500.4100 #### [facility] [address] [place], [address] GFR/1.73 sq M.predicted among non-blacks MDRD (S/P/Bld) [Vol rate/Area] 92 mL/min/{1.73_m2} Normal >60 [facility] Comment on above: Result Comment: Non- GFR Calc Performed By: #### L 501.9910, L500.4050, L503.6620, L100.0100, L500.4100 #### [facility] [address] [place], [address] Globulin (S) [Mass/Vol] 4.1 g/dL Normal 2.2-4.2 [facility] Comment on above: Performed By: #### L 501.9910, L500.4050, L503.6620, L100.0100, L500.4100 #### [facility] [address] [place], [address] Glucose [Mass/Vol] 90 mg/dL Normal 74-106 [facility] Comment on above: Performed By: #### L 501.9910, L500.4050, L503.6620, L100.0100, L500.4100 #### [facility] [address] [place], [address] Potassium [Moles/Vol] 5.1 mmol/L Normal 3.5-5.1 [facility] Comment on above: Performed By: #### L 501.9910, L500.4050, L503.6620, L100.0100, L500.4100 #### [facility] [address] [place], [address] Sodium [Moles/Vol] 137 mmol/L Normal 136-145 [facility] Comment on above: Performed By: #### L 501.9910, L500.4050, L503.6620, L100.0100, L500.4100 #### [facility] [address] [place], [address] T PROT 8.1 g/dL Normal 6.4-8.2 [facility] Comment on above: Performed By: #### L 501.9910, L500.4050, L503.6620, L100.0100, L500.4100 #### [facility] [address] [place], [address] Urea nitrogen [Mass/Vol] 8 mg/dL Normal 7-18 [facility] Comment on above: Performed By: #### L 501.9910, L500.4050, L503.6620, L100.0100, L500.4100 #### [facility] [address] [place], [address] Eosinophil percentageOrdered By: Sherin Martinez on 08-07-2024 Eosinophils/100 WBC (Bld) 2.7 % 0-5 [facility] Erythrocyte distribution wid th ratioOrdered By: Sherin Martinez on 08-07-2024 Erythrocyte distribution width (RBC) [Ratio] 12.7 % 11.6-14.6 [facility] Erythrocyte distribution wid th standard deviationOrdered By: Sherin Martinez on 08-07-2024 Erythrocyte distribution width (RBC) [Entitic vol] 41.3 fL 35.1-43.9 [facility] Estimated glomerular filtrat ion rate (GFR) AmericanOrdered By: Sherin Martinez on 08-07-2024 Estimated GFR (MDRD) Amer 112 mL/min >60 [facility] Comment on above: GFR Calc Glomerular filtration rate ( GFR) estimationOrdered By: Sherin Martinez on 08-07-2024 Estimated GFR (MDRD) Non-Af Amer 92 mL/min >60 [facility] Comment on above: Non- GFR Calc Glucose measurementOrdered B y: Sherin Martinez on 08-07-2024 Glucose [Mass/Vol] 90 mg/dL 74-106 [facility] Hematocrit Auto (Bld) [Volum e fraction]Ordered By: Sherinnacho Martinez on 08-07-2024 Hematocrit (Bld) [Volume fraction] 48.1 % 40-54 [facility] Hemoglobin measurementOrdere d By: Sherin Martinez on 08-07-2024 Hemoglobin (Bld) [Mass/Vol] 15.0 g/dL 13.0-16.5 [facility] High density lipoprotein (HD L) measurementOrdered By: Sherinnacho Martinez on 08-07-2024 Cholesterol in HDL [Mass/Vol] 75 mg/dL >40 [facility] Comment on above: The drugs N-Acetylcy steine and Metamizole may falsely depress this assay. Reference Range HDL <40 mg/dL Low HDL Cholesterol HDL >or= 60 mg/dL High HDL Cholesterol Immature granulocytes/100 WB C Auto (Bld)Ordered By: Sherin Martinez on 08-07-2024 Immature granulocytes/100 WBC (Bld) 0.400 % 0.0-0.9 [facility] Comment on above: IG% - Immature Granu locytes (promyelocytes, myelocytes and metamyelocytes) > 1% indicates that a LEFT SHIFT is Present. Laboratory - Chemistry and C hemistry - challengeOrdered By: Sherin Martinez on 08-07-2024 AST [Catalytic activity/Vol] 20 U/L 15-37 [facility] Lipid Profileon 08-07-2024 Cholesterol [Mass/Vol] 198 mg/dL Normal [address] [facility] Comment on above: Result Comment: <200 mg/dL Desirable 200-240 mg/dL Borderline >240 mg/dL High Risk Performed By: #### L 501.9921, L500.4050, L503.6620, L100.0100, L500.4100 #### [facility] [address] [place], [address] Cholesterol in HDL [Mass/Vol] 75 mg/dL Normal [facility] Comment on above: Result Comment: The drugs N-Acetylcysteine and Metamizole may falsely depress this assay. Reference Range HDL <40 mg/dL Low HDL Cholesterol HDL >or= 60 mg/dL High HDL Cholesterol Performed By: #### L [id number], L500.4050, L503.6620, L100.0100, L500.4100 #### [facility] [address] [place], [address] Cholesterol in LDL [Mass/Vol] 108 mg/dL Normal 0-130 [facility] Comment on above: Performed By: #### L [id number], L500.4050, L503.6620, L100.0100, L500.4100 #### [facility] [address] [place], [address] Cholesterol in VLDL [Mass/Vol] 15 mg/dL Normal 5-40 [facility] Comment on above: Performed By: #### L [id number], L500.4050, L503.6620, L100.0100, L500.4100 #### [facility] [address] [place], [address] Triglyceride [Mass/Vol] 74 mg/dL Normal [facility] Comment on above: Result Comment: The drugs N-Acetylcysteine and Metamizole may falsely depress this assay. Serum Triglycerides Reference Interval Normal <150 mg/dL Borderline high 150 - 199 mg/dL High 200 - 499 mg/dL Very High > or = 500 mg/dL Performed By: #### L [id number], [id number], L503.6620, L100.0100, L500.4100 #### [facility] [address] [place], [address] Low density lipoprotein (LDL ) cholesterol measurementOrdered By: Sherin Martinez on 08-07-2024 Cholesterol in LDL [Mass/Vol] 108 mg/dL 0-130 [facility] Lymphocytes Auto (Unsp spec) [#/Vol]Ordered By: Sherinnacho Martinez on 08-07-2024 Lymphocytes (Bld) [#/Vol] 1.46 10*3/uL 0.83-4.51 [facility] Lymphocytes/100 WBC Auto (Un sp spec)Ordered By: Sherin Martinez on 08-07-2024 Lymphocytes/100 WBC (Bld) 26.3 % 19-41 [facility] MCV (mean corpuscular volume ) determinationOrdered By: Sherinnacho Martinez on 08-07-2024 MCV (RBC) [Entitic vol] 88.9 fL 80-94 [facility] Mean corpuscular hemoglobin (MCH) determinationOrdered By: Sherinnacho Martinez on 08-07-2024 MCH (RBC) [Entitic mass] 27.7 pg 27.0-32.0 [facility] Mean corpuscular hemoglobin concentration (MCHC) determinationOrdered By: Sherinnacho Martinez on 08-07-2024 MCHC (RBC) [Mass/Vol] 31.2 g/dL Low 32-36 [facility] Mean platelet volume determi nationOrdered By: Sherinnacho Martinez on 08-07-2024 Platelet mean volume (Bld) [Entitic vol] 9.5 fL 6.2-12.0 [facility] Monocyte percentageOrdered B y: Sherin Martinez on 08-07-2024 Monocytes/100 WBC (Bld) 8.6 % 0-10 [facility] Neutrophil percentageOrdered By: Ophelia Jocelyn on 08-07-2024 Neutrophils/100 WBC (Bld) 60.9 % 47-70 [facility] Nucleated red blood cell per centageOrdered By: Sherinnacho Martinez on 08-07-2024 Nucleated RBC/100 WBC (Bld) [Ratio] 0 % 0-5 [facility] PSA,Total - Annual Screenon 08-07-2024 PSA,TOT SCREEN 3.10 ng/mL Normal 0.00-4.00 [facility] Comment on above: Result Comment: This test was performed using the TPSA assay method for the [employer] chemistry system. Values obtained with different assay methods cannot be used interchangably. When changing PSA assays in the course of monitoring a patient, additional sequential testing should be carried out to confirm baseline values. Performed By: #### L 501.9910, L500.4050, L503.6620, L100.0100, L500.4100 #### [facility] [address] [place], [address] Platelet countOrdered By: Ra rupert Martinez on 08-07-2024 Platelets (Bld) [#/Vol] 377 10*3/uL 150-450 [facility] Potassium measurementOrdered By: Sherin Martinez on 08-07-2024 Potassium [Moles/Vol] 5.1 mmol/L 3.5-5.1 [facility] RBC Auto (Bld) [#/Vol]Ordere d By: Sherin Martinez on 08-07-2024 RBC (Bld) [#/Vol] 5.41 10*6/uL 4.6-6.2 [facility] Screening prostate specific antigen (PSA) measurementOrdered By: Sherin Martinez on 08-07-2024 Prostate Specific Antigen Screen 3.10 ng/mL 0.00-4.00 [facility] Comment on above: This test was perfor med using the TPSA assay method for [employer] chemistry system. Values obtained with differentassay methods cannot be used interchangably.When changing PSA assays in the course of monitoring apatient, additional sequential testing should be carriedout to confirm baseline values. Serum anion gap measurementO rdered By: Sherin Martinez on 08-07-2024 Anion gap [Moles/Vol] 6 mmol/L 5-15 [facility] Serum globulin measurementOr dered By: Sherin Martinez on 08-07-2024 Globulin (S) [Mass/Vol] 4.1 g/dL 2.2-4.2 [facility] Serum or plasma alanine camejo otransferase (ALT) measurementOrdered By: Sherin Martinez on 08-07-2024 ALT [Catalytic activity/Vol] 20 U/L 16-61 [facility] Serum or plasma albumin isela urement (mass/volume)Ordered By: Sherin Martinez on 08-07-2024 Albumin [Mass/Vol] 4.0 g/dL 3.2-5.0 [facility] Serum or plasma alkaline fani sphatase measurementOrdered By: Sherin Martinez on 08-07-2024 ALP [Catalytic activity/Vol] 104 U/L 45-117 [facility] Serum or plasma calcium isela urement (mass/volume)Ordered By: Sherin Martinez on 08-07-2024 Calcium [Mass/Vol] 9.4 mg/dL 8.5-10.1 [facility] Serum or plasma cholesterol measurement (mass/volume)Ordered By: Sherin Martinez on 08-07-2024 Cholesterol [Mass/Vol] 198 mg/dL <[address] [facility] Comment on above: <200 mg/dL Desirable 200-240 mg/dL Borderline >240 mg/dL High Risk Serum or plasma creatinine m easurement (mass/volume)Ordered By: Sherin Martinez on 08-07-2024 Creatinine [Mass/Vol] 0.88 mg/dL 0.70-1.30 [facility] Comment on above: The validity of the calculated GFR & GFRAA in patients over 70 years has not been determined. Clinical correlation is essential. Serum or plasma urea nitroge n measurement (mass/volume)Ordered By: Sherin Martinez on 08-07-2024 Urea nitrogen [Mass/Vol] 8 mg/dL 7-18 [facility] Sodium levelOrdered By: Jenae Martinez on 08-07-2024 Sodium [Moles/Vol] 137 mmol/L 136-145 [facility] Total proteinOrdered By: Sybil Martinez on 08-07-2024 Protein [Mass/Vol] 8.1 g/dL 6.4-8.2 [facility] Triglycerides measurementOrd ered By: Sherin Martinez on 08-07-2024 Triglyceride [Mass/Vol] 74 mg/dL <199 [facility] Comment on above: The drugs N-Acetylcy steine and Metamizole may falsely depress this assay.Serum Triglycerides Reference Interval Normal <150 mg/dL Borderline high 150 - 199 mg/dL High 200 - 499 mg/dL Very High > or = 500 mg/dL Very low density lipoprotein (VLDL) cholesterol measurementOrdered By: Sherin Martinez on 08-07-2024 VLDL Cholesterol 15 mg/dL 5-40 [facility] White blood cell (WBC) count Ordered By: Sherin Martinez on 08-07-2024 WBC (Bld) [#/Vol] 5.6 10*3/uL 4.4-11.0 [facility] Vital Signs Date Time Vital Sign Value Performing Clinician [place] 03-21-2025 13:59-0400 Body height 165.1 cm Sherin Martinez HOUSE DESIGNER[employer] Work Phone: [facility] 03-21-2025 13:59-0400 Diastolic blood pressure 66 mm[Hg] Sherin Martinez HOUSE DESIGNER[employer]C Work Phone: [facility] 03-21-2025 13:59-0400 Heart rate 130 /min Sherin Jocelyn HOUSE DESIGNER[employer]C Work Phone: [facility] 03-21-2025 13:59-0400 Respiratory rate 18 /min Sherin Jocelyn HOUSE DESIGNER[employer]C Work Phone: [facility] 03-21-2025 13:59-0400 SaO2% (BldA) [Mass fraction] 93 % Sherin Jocelyn HOUSE DESIGNER[employer]C Work Phone: [facility] 03-21-2025 13:59-0400 Systolic blood pressure 100 mm[Hg] Sherin Martinez HOUSE DESIGNER[employer]C Work Phone: [facility] 02-14-2025 12:04-0400 Diastolic blood pressure 60 mm[Hg] Sherin Martinez HOUSE DESIGNER[employer]C Work Phone: [facility] 02-14-2025 12:04-0400 Systolic blood pressure 82 mm[Hg] Sherin Colungagar HOUSE DESIGNER-C Work Phone: [facility] 02-14-2025 11:29-0400 Body height 165.1 cm Sherin Martinez HOUSE DESIGNER[employer]C Work Phone: [facility] 02-14-2025 11:29-0400 Body mass index (BMI) [Ratio] 16.5 kg/m2 Sherin Jocelyn HOUSE DESIGNER[employer]C Work Phone: [facility] 02-14-2025 11:29-0400 Body temperature 96.4 [degF] Sherin Jocelyn HOUSE DESIGNER[employer]C Work Phone: [facility] 02-14-2025 11:29-0400 Body weight 44.9 kg Sherin Jocelyn HOUSE DESIGNER[employer]C Work Phone: [facility] 02-14-2025 11:29-0400 Heart rate 97 /min Sherin Jocelyn HOUSE DESIGNER[employer]C Work Phone: [facility] 02-14-2025 11:29-0400 Respiratory rate 18 /min Sherin Jocelyn HOUSE DESIGNER[employer]C Work Phone: [facility] 02-14-2025 11:29-0400 SaO2% (BldA) [Mass fraction] 97 % Sherin Jocelyn HOUSE DESIGNER[employer] Work Phone: [facility] 10-15-2024 07:22-0400 Body mass index (BMI) [Ratio] 17.6 kg/m2 Sherin Jocelyn HOUSE DES[employer]ER[employer]C Work Phone: [facility] 10-15-2024 07:22-0400 Body weight 48.08 kg Sherin Jocelyn HOUSE DESIGNER[employer]C Work Phone: [facility] 10-15-2024 07:22-0400 Diastolic blood pressure 79 mm[Hg] Sherin Jocelyn HOUSE DESIGNER[employer]C Work Phone: [facility] 10-15-2024 07:22-0400 Heart rate 96 /min Sherin Jocelyn HOUSE DESIGNER[employer]C Work Phone: [facility] 10-15-2024 07:22-0400 Respiratory rate 18 /min Sherin Jocelyn HOUSE DESIGNER[employer]C Work Phone: [facility] 10-15-2024 07:22-0400 SaO2% (BldA) [Mass fraction] 94 % Sherin Jocelyn HOUSE DESIGNER[employer]C Work Phone: [facility] 10-15-2024 07:22-0400 Systolic blood pressure 117 mm[Hg] Sherin Jocelyn HOUSE DESIGNER-C Work Phone: [facility] 09-06-2024 11:09-0500 Body height 165.1 cm Sherin Jocelyn HOUSE DESIGNER[employer]C Work Phone: [facility] 09-06-2024 11:09-0500 Body mass index (BMI) [Ratio] 17.9 kg/m2 Sherin Jocelyn HOUSE DESIGNER[employer]C Work Phone: [facility] 09-06-2024 11:09-0500 Body weight 48.98 kg Sherin Jocelyn HOUSE DESIGNER[employer]C Work Phone: [facility] 09-06-2024 11:09-0500 Diastolic blood pressure 113 mm[Hg] Sherin Jocelyn HOUSE DESIGNER-C Work Phone: [facility] 09-06-2024 11:09-0500 Heart rate 101 /min Sherin Jocelyn HOUSE DESIGNER[employer]C Work Phone: [facility] 09-06-2024 11:09-0500 Respiratory rate 18 /min Sherin Colungagar HOUSE DESIGNER[employer]C Work Phone: [facility] 09-06-2024 11:09-0500 Systolic blood pressure 160 mm[Hg] Sherin Colungagar HOUSE DESIGNER[employer]C Work Phone: [facility] Encounters Encounter Date Encounter Type Care Provider Facility Start: 06-12-2025 ambulatory Bhargav Demiter Facility :[facility] Start: 06-02-2025 ambulatory Bhargav Demiter Facility :[facility] Start: 04-22-2025 End: 04-22-2025 ambulatory Sherin Jocelyn HOUSE DESIGNER[employer]C Work Phone: -Pulmonary Services/Neurology Start: 04-22-2025 End: 04-22-2025 Patient encounter procedure Bhargav Moraiter PA -Pulmonary Services/Neurology Work Phone: Start: 04-22-2025 End: 04-22-2025 ambulatory Bhargav Demumang Facility:[facility] Start: 03-21-2025 End: 03-21-[address] Ned [facility] MD -[facility] Work Phone: Start: 03-21-2025 End: 03-21-2025 ambulatory Sherin Jocelyn HOUSE DESIGNER[employer]C Work Phone: -[facility] Start: 02-14-2025 End: 02-14-2025 Patient encounter procedure Bhargav Parra PA -[facility] Work Phone: Start: 02-14-2025 End: 02-14-2025 ambulatory Sherin Jocelyn HOUSE DESIGNER[employer]C Work Phone: -[facility] Start: 02-12-2025 End: 02-12-2025 ambulatory Sherin Jocelyn HOUSE DESIGNER[employer]C Work Phone: -Laboratory Start: 02-12-2025 End: 02-12-2025 Patient encounter procedure Bhargav Parra PA -Laboratory Work Phone: Start: 02-12-2025 End: 02-12-2025 ambulatory Sherin Jocelyn Facility:[facility] Start: 10-15-2024 End: 10-15-2024 Patient encounter procedure Bhargav Parra [place] -[facility] Work Phone: Start: 10-15-2024 End: 10-15-2024 ambulatory Sherin Jocelyn Facility:[facility] Start: 10-09-2024 ambulatory Ned [facility] Facility:[facility] Start: 10-09-2024 Non-patient / Non-visit Dr. Mitchell APONTE [facility] Start: 10-09-2024 End: 10-09-2024 ambulatory Sherin Jocelyn HOUSE DESIGNER[employer]C Work Phone: [facility] Work Phone: Start: 10-09-2024 End: 10-09-[address] Ned [facility] MD -Cardiovascular Services Work Phone: Start: 10-09-2024 End: 10-09-2024 ambulatory Ned [facility] Facility:[facility] Start: 09-06-2024 End: 09-06-[address] Ned [facility] MD -[facility] Work Phone: Start: 09-06-2024 End: 09-06-2024 ambulatory Nedsilver Harrison Facility:[facility] Start: 08-27-2024 Encounter for genera l adult medical examination with abnormal findings Sherin Martinez [facility] Start: 08-07-2024 End: 08-07-2024 Patient encounter procedure Sherin Martinez HOUSE DESIGNER-C -Laboratory, [facility] Romero [facility] Start: 08-07-2024 End: 08-07-2024 ambulatory Sherin Martinez Facility:[facility] Procedures Date Procedure Procedure Detail Performing Clinician Start: 10-09-2024 Radionuclide imaging of perfusion of myocardium under exercise stress Sherin Martinez HOUSE DESIGNER[employer]C Work Phone: Start: 09-06-2024 Evaluation of diagno stic study results Sherin Martinez HOUSE DESIGNER[employer]C Work Phone: Start: 08-07-2024 X-ray of chest, PA a nd lateral views Sherin Martinez HOUSE DESIGNER-C Work Phone: Plan of Treatment Date Care Activity Detail Author Start: 03-21-2025 End: 03-21-2025 Evaluation of diagnostic study results [facility] Lipid 1995 panel - S flako or Plasma [facility] Lipid 1995 panel - S flako or Plasma [facility] Payers Date Payer Category Payer Private Health Insurance [id number] 2024 Self-pay Unknown [id number] Unknown [id number] 2.16.8 [id number] Unknown [id number] 2.16.8 [id number] Unknown [id number] 2.16.8 [id number] Unknown [id number] 2.16.8 [id number] Unknown [id number] 2.16.8 [id number] Unknown [id number] 2.16.8 [id number] Unknown [id number] 2.16.8 [id number] Unknown [id number] 2.16.8 [id number] Unknown [id number] 2.16.8 [id number] Unknown [id number] 2.16.8 [id number] Unknown [id number] 2.16.8 [id number] Social History Date Type Detail Facility Start: 10-15-2024 [facility] Start: 10-17-2024 Sex Male (finding) [facility] Start: 1960 Sex Assigned At Male [facility] Sex Male [facility] Evaluation note 02-14-2025 Note Date & Type Note Facility 02-14-2025 Evaluation note Diagnosis Onset Date Resolution SOB (shortness of breath) acute February 14, 2025 11:16am CAD (coronary artery disease) chronic February 14, 2025 11:16am Hx of non-ST elevation myocardial infarction (NSTEMI) chronic February 14, 2025 11:16am Hypertension chronic February 14, 2 025 11:16am [facility] Work Phone: Evaluation note 02-14-2025 Note [...] 1:37pm Tachycardia acute March 21, 2025 1:37pm [facility] Work Phone: Evaluation note 09-06-2024 Note Date [...] 10:56am Hypertension chronic October 15, 2024 10:56am [facility] Work Phone: Evaluation note Note Date & Type Note Facility Evaluation note Diagnosis Onset Date Resolution SOB (shortness of breath) acute February 14, 2025 11:16am CAD (coronary artery disease) chronic February 14, 2025 11:16am Hx of non-ST elevation myocardial infarction (NSTEMI) chronic February 14, 2025 11:16am Hypertension chronic February 14 11:16am [facility] Work Phone: Hospital Discharge instructions Note Date & Type Note Facility Hospital Discharge instructions Ambulatory OrdersPulmonary Medicine Location: None Selected [facility] Work Phone: Reason for referral (narrative) Note Date & Type Note Facility Reason for referral (narrative) No reason for referral information available [facility] Work Phone: Chief Complaint and Reason [...] 2024 End: September 06, 2024 Sherin Martinez HOUSE DESIGNER-C Referring Provider Active St art: September 06, 2024 End: September 06, 2024 Dr. Ned [facility] MD Attending Provider Active S tart: September 06, 2024 End: September 06, 2024 Team Status: Inactive Member Role Status Dates Sherin Martinez , HOUSE DESIGNER-C Primary Care Provider Active Start: October 09, 2024 End: October 09, 2024 Dr. Ned [facility] MD Attending Provider Active S tart: October 09, 2024 End: October 09, 2024 Dr. Ned [facility] MD Referring Provider Active S tart: October 09, 2024 End: October 09, 2024 Team Status: Active Member Role Status Dates Sherin Martinez HOUSE DESIGNER-C Primary Care Provider Active Start: October 09, 2024 Dr. Ned [facility] MD Attending Provider Active S tart: October 09, 2024 Team Status: Inactive Member Role Status Dates Sherin Martinez HOUSE DESIGNER-C Primary Care Provider Active Start: October 15, 2024 End: October 15, 2024 Sherin Martinez , HOUSE DESIGNER-C Referring Provider Active St art: October 15, 2024 End: October 15, 2024 KELLY Herrera Attending Provider Active St art: October 15, 2024 End: October 15, 2024 Team Status: Active Member Role/Relationship Status Dates Sherin Martinez , HOUSE DESIGNER-C Primary Care Provider Active Team Status: Active Member Role/Relationship Status Dates Sherin Martinez , HOUSE DESIGNER-C Primary Care Provider Active Start: February 12, 2025 KELLY Herrera Attending Provider Active St art: February 12, 2025 KELLY Herrera Referring Provider Active St art: February 12, 2025 Team Status: Inactive Member Role/Relationship Status Dates Sherin Martinez , HOUSE DESIGNER-C Primary Care Provider Active Start: February 14, 2025 End: February 14, 2025 Sherin Martinez , HOUSE DESIGNER-C Referring Provider Active St art: February 14, 2025 End: February 14, 2025 KELLY Herrera Attending Provider Active St art: February 14, 2025 End: February 14, 2025 Team Status: Inactive Member Role/Relationship Status Dates Sherin Martinez HOUSE DESIGNER-C Primary Care Provider Active Start: February 12, 2025 End: February 12, 2025 KELLY Herrera Attending Provider Active St art: February 12, 2025 End: February 12, 2025 KELLY Herrera Referring Provider Active St art: February 12, 2025 End: February 12, 2025 Team Status: Inactive Member Role/Relationship Status Dates Sherin Martinez , HOUSE DESIGNER-C Primary Care Provider Active Start: March 21, 2025 End: March 21, 2025 Sherin Martinez , HOUSE DESIGNER-C Referring Provider Active St art: March 21, 2025 End: March 21, 2025 Dr. Ned [facility] MD Attending Provider Active S tart: March 21, 2025 End: March 21, 2025 Team Status: Active Member Role/Relationship Status Dates Sherin Martinez HOUSE DESIGNER-C Primary care physician Active Team Status: Inactive Member Role/Relationship Status Dates Sherin Martinez , HOUSE DESIGNER-C Primary care physician Active Start: February 12, 2025 End: February 12, 2025 KELLY Herrera Attending physician Active S tart: February 12, 2025 End: February 12, 2025 KELLY Herrera Referring Provider Active St art: February 12, 2025 End: February 12, 2025 Team Status: Inactive Member Role/Relationship Status Dates Sherin Martinez HOUSE DESIGNER-C Primary care physician Active Start: February 14, 2025 End: February 14, 2025 Sherin Martinez , HOUSE DESIGNER-C Referring Provider Active St art: February 14, 2025 End: February 14, 2025 KELLY Herrera Attending physician Active S tart: February 14, 2025 End: February 14, 2025 Team Status: Inactive Member Role/Relationship Status Dates Sherin Martinez , HOUSE DESIGNER-C Primary care physician Active Start: March 21, 2025 End: March 21, 2025 Sherin Martinez , HOUSE DESIGNER-C Referring Provider Active St art: March 21, 2025 End: March 21, 2025 Dr. Ned [facility] MD Attending physician Active Start: March 21, 2025 End: March 21, 2025 Team Status: Inactive Member Role/Relationship Status Dates Sherin Martinez , HOUSE DESIGNER-C Primary care physician Active Start: April 22, [...] section and content) DATE CREATED AUTHOR 06/05/2025 [facility] FOR RECORDS PERTAINING TO PATIENTS WHO ARE [...] BE BASED ON THE PRIMARY CLINICAL RECORDS. [employer] provides no warranty or guarantee of the accuracy or completeness of information in this document.
== END | disposition home or self-care (01) ==
LOC: PSN 08:23
PROVIDERS: PCP Nurse Practitioner Family; Referring Provider Internal Medicine Cardiovascular Disease; Visit Provider Internal Medicine Cardiovascular Disease
DX: R00.0 Tachycardia, unspecified (principal); R00.2 Palpitations; I25.10 Atherosclerotic heart disease of native coronary artery without angina pectoris; I25.2 Old myocardial infarction
CPT/HCPCS: 93225; 93226

== ENCOUNTER → 2025-06-30 | Outpatient (CLI) | payer OTHER, SELFPAY ==
--- NOTE | 2025-06-30 18:21 | CT_ITS ---
PROCEDURE: LOW DOSE CT LUNG SCREENING 06/30/2025 REASON FOR EXAM: H/O TOBACCO DEPENDENCY TECHNIQUE: Procedure Code: CTLUNGSCREEN Modality: CT Procedure: LOW DOSE CT LUNG SCREENING Coronal and Sagittal reconstruction series were provided. One or more dose reduction techniques were used (e.g., Automated exposure control, adjustment of the mA and/or kV according to patient size, use of iterative reconstruction technique). REFERENCE LINK: [employer] Lung-RADS RADIATION DOSE SUMMARY: CTDlvol: 2.01 mGy DLP: 71.98 mGycm COMPARISON: None available FINDINGS: PULMONARY NODULES: (Only nodules >3mm are reported. Pulmonary Nodules: Left upper lobe pulmonary nodule measures up to 1.3 cm on axial image 84. Hardware:None Lymph Nodes:No lymphadenopathy. Heart and Vasculature:Normal cardiac size.Atherosclerotic calcifications of the thoracic aorta. Thoracic aorta and pulmonary arteries have normal contours; noncontrast technique limits evaluation. Coronary Artery Calcifications: Present Lungs and Airways: Severe emphysema. Right upper lobe base segment consolidative changes. Pleura:No pleural effusion or pneumothorax. Upper Abdomen: No acute findings. Bones: No acute osseous abnormality. CT/Low Dose CT Lung Screening IMPRESSION: Left upper lobe 1.3 cm pulmonary nodule. Lung-RADS Category: 4A SUSPICIOUS. RE COMMEND 3 MONTH LDCT; PET/CT MAY BE CONSIDERED IF THERE IS A >=8MM SOLID NODULE OR SOLID COMPONENT. Right upper lobe base segment consolidative changes, favoring scarring. Howeve r, differential diagnosis would include infectious or inflammatory changes as well as indolent tumor with lepidic growth. Recomme nd comparison with prior imaging study. Severe emphysema. Reading Location: [facility]
--- OUTSIDE RECORDS SUMMARY | 2025-06-30 18:32 | XMS RPT_ITS | CCD ---
Author Organization [facility] Care Team Providers Care Supervisor Cab Name Role Phone Jocelyn TAPPER BIT-C, Sherin Primary Care Provider Jocelyn TAPPER BIT-C, Sherin Attending Provider [phone] Jocelyn TAPPER BIT-C, Sherin Referring Provider Christy APONTE, Dr. Marino Attending Provider [phone] Ned Harrison MD Referring Provider [phone] Ynes Hectoryler Attending Provider [phone] Jocelyn TAPPER BIT-C, Sherin Primary Care Provider Bhargav Hector Attending Provider Aida MENDOZA Bhargav Referring Provider [phone] Jocelyn TAPPER BIT-C, Sherin Referring Provider Christy APONTE, Dr. Marino Attending Provider [phone] Jocelyn TAPPER BIT-C, Sherin Primary Care Physician Bhargav Hector Attending [...] Bhargav Referring Unavailable Demiter, Bhargav Attending Unavailable [facility] Primary Care Unavailable Demiter, Bhargav Referring Unavailable Demiter, Bhargav Attending Unavailable [facility] Primary Care Unavailable [facility] Primary Care Unavailable [facility] Attending Unavailable [facility] Referring Unavailable ChristyNed tan Attending Unavailable [facility] Referring Unavailable [facility] Primary Care Unavailable Ned Harrison Attending Unavailable [facility] Primary Care Unavailable Medications Current Medications Medication Drug Class(es) Dates Sig (Normalized) Sig (Original) [id number] 200 actuat albuterol 0.09 mg/actuat metered dose [...] Office Visit Reporton 2024 Office Visit Report [facility] [address] [place] [address] OFFICE VISIT Date of Service: 03/21/25 MR#: [id number] Acct: [id number] Patient: KOLTON WALTER Rep #: [id number] : 1960 Provider: Dr. Ned Harrison MD Age/Sex: 64/M Location: [facility] Status: Signed Intake Vital Signs 02/14/25 11:29 [...] with activity as well. To establish with [facility] 05/01/25. Denies chest pain. No [...] Orders: Orders 12 Lead EKG performed by [facility] 03/21/25 R00.0 - Tachycardia, unspecified 03/21/25 1525 Date Bhargav MENDOZA 03/24/25 0839 Cosigner Signature: Date (if applicable) Ned Harrison MD CC: Normal [facility] Cardiology Visit Reporton Cardiology Visit Report [facility] [address] [place] [address] OFFICE VISIT Date of Service: 02/14/25 MR#: [id number] Acct: [id number] Name: KOLTON WALTER Rep #: [id number] : 1960 Provider: KELLY Herrera Age/Sex: 64/M Location: [facility] Status: Signed HPI HPI History of [...] air Intake Visit Reasons: 4 M [employer] Doctor Required: No Accompanied by: Self Is patient [...] Negative epis (more content not included)... Normal [facility] Calculated very low density lipoprotein (VLDL) cholesterol measurementOrdered By: Bhargav Parra on 02-12-2025 Calculated very low density lipoprotein (VLDL) cholesterol measurement 10 mg/dL 5-40 [facility] LDL calc ser/plasOrdered By: Bhargav Parra on 02-12-2025 Cholesterol in LDL [Mass/Vol] 99 mg/dL [facility] Comment on above: Fnfacokfff=817-653 m g/dL & Higher Ubgz=376 mg/dL or greater Lipid Profileon 02-12-2025 CHOL:HDL 2.56 Normal [facility] Comment on above: Performed By: #### L 500.4100 #### [facility] Laboratory [address] [facility] [place], [address] Cholesterol [Mass/Vol] 179 mg/dL Normal <=200 [facility] Comment on above: Result Comment: Chol esterol level, Desirable <200 mg/dL Borderline high cholesterol 200-239 mg/dL High cholesterol >=240 mg/dL Recommendations of the NCEP Adult Treatment Panel for the following risk-cutoff thresholds for the [place] population. Performed By: #### L 500.4100 #### [facility] [address] [place], [address] Cholesterol in HDL [Mass/Vol] 70 mg/dL Normal [facility] Comment on above: Result Comment: Rocio onal Cholesterol Education Program (NCEP) guidelines: <40 mg/dL: Low HDL-cholesterol (major risk factor for CHD) >= 60 mg/dL: High HDL-cholesterol (negative risk factor for CHD) HDL-cholesterol is affected by a number of factors, e.g. smoking, exercise, hormones, sex and age. Performed By: #### L 500.4100 #### [facility] [address] [place], [address] Cholesterol in LDL [Mass/Vol] 99 mg/dL Normal [facility] Comment on above: Result Comment: Bord zoaunu=710-243 mg/dL Higher Kdsl=900 mg/dL or greater Performed By: #### L 500.4100 #### [facility] [address] [place], [address] Cholesterol in VLDL [Mass/Vol] 10 mg/dL Normal 5-40 [facility] Comment on above: Performed By: #### L 500.4100 #### [facility] [address] [place], [address] Triglyceride [Mass/Vol] 49 mg/dL Normal [facility] Comment on above: Result Comment: The drugs N-Acetylcysteine and Metamizole may falsely depress this assay. Normal range: <150 mg/dL Borderline High: 150-199 mg/dL High: 200-499 mg/dL Very High: >500 mg/dL Performed By: #### L 500.4100 #### [facility] [address] [place], [address] Screening total cholesterol/ high density lipoprotein (HDL) cholesterol ratioOrdered By: Bhargav Parra on 02-12-2025 Cholesterol.total/Carmelina sterol in HDL [Mass ratio] 2.56 {ratio} [facility] Serum or plasma cholesterol in HDL measurement (mass/volume)Ordered By: Bhargav Parra on 02-12-2025 Cholesterol in HDL [Mass/Vol] 70 mg/dL >40 [facility] Comment on above: National Cholesterol Education Program (NCEP) guidelines:<40 mg/dL: Low HDL-cholesterol (major risk factor for CHD)>= 60 mg/dL: High HDL-cholesterol (negative risk factor for CHD)HDL-cholesterol is affected by a number of factors, e.g. smoking, exercise, hormones, sex and age. Serum or plasma cholesterol measurement (mass/volume)Ordered By: Bhargav Parra on 02-12-2025 Cholesterol [Mass/Vol] 179 mg/dL <201 [facility] Comment on above: Cholesterol level, D esirable <200 mg/dLBorderline high cholesterol 200-239 mg/dLHigh cholesterol >=240 mg/dLRecommendations of the NCEP Adult Treatment Panel for the following risk-cutoff thresholds for the [place] population. Triglycerides measurementOrd ered By: Bhargav Parra on 02-12-2025 Triglyceride [Mass/Vol] 49 mg/dL <199 [facility] Comment on above: The drugs N-Acetylcy steine and Metamizole may falsely depress this assay. Normal range: <150 mg/dLBorderline High: 150-199 mg/dLHigh: 200-499 mg/dLVery High: >500 mg/dL Cardiology Visit Reporton Cardiology Visit Report [facility] [address] [place] [address] OFFICE VISIT Date of Service: 10/15/24 MR#: [id number] Acct: [id number] Name: KOLTON WALTER Rep #: [id number] : 1960 Provider: KELLY Herrera Age/Sex: 64/M [place] [facility] Status: Signed HPI HPI History of [...] follow-up with PCP and possibly see a physician allergist immunologist. Patient reports fatigue over the last 6 [...] air Intake Visit Reasons: 4 W [employer] Doctor Required: No Accompanied by: Self Is patient [...] XL) Ejection fraction %: 55 [facility] Medical History COPD (chronic obstructive pulmonary disease) [...] vomiting, heartburn, (more content not included)... Normal [facility] Cardiovascular stress test r eportOrdered By: Ned Harrison on 10-09-2024 Study report [facility] [address] [place] [address] MR#: [id number] Acct: [id number] Name: KOLTON WALTER Rep #: [id number] : 1960 64 From: Ned Harrison MD [...] ~ Date Dictated: 10/09/241800 Date Transcribed: 10/09/241800 Engineering Drawings Checker: CO Signed [facility] Work Phone: Echo Completeon 10-09-2024 Echo Complete [facility] [address] [facility] [place] [address] Echo Complete 10/09/24 0822 MR#: [id number] Acct: [id number] Name: KOLTON WALTER Rep #: [id number] : 1960 64 From: Ned Harrison MD [...] V2 max: 104.1 cm/sec MV P1/2t max eid: 79.1 cm/sec LV V1 max: 118.4 cm/sec [...] Date Dictated: 10/09/2422 Date Transcribed: 10/09/24 131 Engineering Drawings Checker: Signed Normal [facility] Echocardiogram study reportO rdered By: Ned Harrison on 10-09-2024 Study report [facility] [address] [place] [address] Echo Complete 10/09/24 0822 MR#: [id number] Acct: [id number] Name: KOLTON WALTER Rep #:[id number] : 1960 64 From: Ned Leach Attending Dr: Dr. Ned Harrison MD S tatus: REG CLI Ordering Dr: Ned Harrison MD Date: Location: [facility] Sex: M C Admitted: Reason For Study [...] 1313 Date _ Ned Harrison MD CC: TAPPER BIT-C Sherin Martinez; Dr. Ned Harrison MD ~ Date Dictated: 10/09/24821 Date Transcribed: 10/09/24 1313 Engineering Drawings Checker: Signed [facility] Work Phone: Stress Reporton 10-09-2024 Stress Report [facility] [address] [place] [address] MR#: [id number] Acct: [id number] Name: KOLTON WALTER Rep #: [id number] : 1960 64 From: Ned Harrison MD [...] MD Date Dictated: 10/09/241800 Date Transcribed: 10/09/241800 Engineering Drawings Checker: CO Signed Normal [facility] 12 Lead EKG performed by [facility] on 09-06-2024 12 Lead EKG performed by [id number] [place] [address] 12 Lead EKG performed by [facility] 09/06/241107 MR#: [id number] Acct: [id number] Name: KOLTON WALTER Rep #: [id number] : 1960 64 From: Ned Harrison MD Attending Dr: Dr. Ned Harrison MD Status: DEP A MB Ordering Dr: Ned Harrison MD Date: 09/06/24 Location: [facility] Sex: M C Admitted: BMS/12 Lead EKG performed by [facility] ECG Report Interpretation ---Sinus Rhythm -Short [place] syndrome Patricia = 118-RSR(V1) -nondiagnostic. BORDERLINE RHYTHMElectronically signed on 09/09/2024 at 08:07 by Ned Harrisonwood Software Version 8610 09/09/24 0812 Date Ned Harrison MD CC: ROHINI Martinez Date Dictated: 09/06/241107 Date Transcribed: 09/06/241107 Engineering Drawings Checker: CO Signed Normal [facility] Cardiology Visit Reporton Cardiology Visit Report [facility] [address] [place], [place] [address] OFFICE VISIT Date of Service: 09/06/24 MR#: [id number] Acct: [id number] Name: KOLTON WALTER Rep #: [id number] : 1960 Provider: Dr. Ned Harrison MD Age/Sex: 64/M Location[place] [facility] Status: Signed HPI HPI History of [...] his medications he has not seen a polysomnograph tech in years. He presents now complaining of [...] NIBP Intake Visit Reasons: [employer] Doctor Required: No Is patient in pain?: No [...] visual inspecti (more content not included)... Normal [facility] Absolute neutrophil countOrd ered By: Sherin Martinez on 08-07-2024 Neutrophils (Bld) [#/Vol] 3.4 10*3/uL 2.0-7.7 [facility] Albumin to globulin ratioOrd ered By: Sherin Martinez on 08-07-2024 Albumin/Globulin [Mass ratio] 1.0 {ratio} 0.9-2.4 [facility] BNP (brain natriuretic pepti de measurement)Ordered By: Sherin Martinez on 08-07-2024 Natriuretic peptide B (Bld) [Mass/Vol] 14.0 pg/mL 0-100 [facility] BNP,B-Type NATRIURETIC PEPTI Rafi 08-07-2024 Natriuretic peptide B (Bld) [Mass/Vol] 14.0 pg/mL Normal 0-100 [facility] Comment on above: Performed By: #### L 501.9910, L500.4050, L503.6620, L100.0100, L500.4100 #### [facility] Laboratory [address] [place] [address]. [place], [address] Basophil percentageOrdered B y: Sherin Martinez on 08-07-2024 Basophils/100 WBC (Bld) 1.1 % High 0-1 [facility] Bilirubin, totalOrdered By: Sherin Martinez on 08-07-2024 Bilirubin [Mass/Vol] 0.40 mg/dL 0.20-1.00 [facility] Comment on above: For patients on eltr ombopag therapy, use of Dimension [place] TBIL is not recommended. Blood urea nitrogen (BUN)/cr eatinine ratioOrdered By: Sherin Martinez on 01-15-2025 Urea nitrogen/Creatinine [Mass ratio] 9.1 mg/mg Low 10-20 [facility] CBC W/Diff, Automatedon 07-24-2024 Absolute Lymph 1.46 X10 3/uL Normal 0.83-4.51 [facility] Comment on above: Performed By: #### L 501.9910, L500.4050, L503.6620, L100.0100, L500.4100 #### [facility] [address] [place], [address] Absolute Neut 3.4 X10 3/uL Normal 2.0-7.7 [facility] Comment on above: Performed By: #### L 501.9910, L500.4050, L503.6620, L100.0100, L500.4100 #### [facility] [address] [place], [address] Basophils/100 WBC (Bld) 1.1 % High 0-1 [facility] Comment on above: Performed By: #### L 501.9910, L500.4050, L503.6620, L100.0100, L500.4100 #### [facility] [address] [place], [address] Eosinophils/100 WBC (Bld) 2.7 % Normal 0-5 [facility] Comment on above: Performed By: #### L 501.9910, L500.4050, L503.6620, L100.0100, L500.4100 #### [facility] [address] [place], [address] Erythrocyte distribution width (RBC) [Ratio] 12.7 % Normal 11.6-14.6 [facility] Comment on above: Performed By: #### L 501.9910, L500.4050, L503.6620, L100.0100, L500.4100 #### [facility] [address] [place], [address] Hematocrit (Bld) [Volume fraction] 48.1 % Normal 40-54 [facility] Comment on above: Performed By: #### L 501.9910, L500.4050, L503.6620, L100.0100, L500.4100 #### [facility] [address] [place], [address] Hemoglobin (Bld) [Mass/Vol] 15.0 g/dL Normal 13.0-16.5 [facility] Comment on above: Performed By: #### L 501.9910, L500.4050, L503.6620, L100.0100, L500.4100 #### [facility] [address] [place], [address] IG% 0.400 Normal 0.0-0.9 [facility] Comment on above: Result Comment: IG% - Immature Granulocytes (promyelocytes, myelocytes and metamyelocytes) > 1% indicates that a LEFT SHIFT is Present. Performed By: #### L 501.9910, L500.4050, L503.6620, L100.0100, L500.4100 #### [facility] [address] [place], [address] Lymphocytes/100 WBC (Bld) 26.3 % Normal 19-41 [facility] Comment on above: Performed By: #### L 501.9910, L500.4050, L503.6620, L100.0100, L500.4100 #### [facility] [address] [place], [address] MCH (RBC) [Entitic mass] 27.7 pg Normal 27.0-32.0 [facility] Comment on above: Performed By: #### L 501.9910, L500.4050, L503.6620, L100.0100, L500.4100 #### [facility] [address] [place], [address] MCHC (RBC) [Mass/Vol] 31.2 g/dL Low 32-36 [facility] Comment on above: Performed By: #### L 501.9910, L500.4050, L503.6620, L100.0100, L500.4100 #### [facility] [address] [place], [address] MCV (RBC) [Entitic vol] 88.9 fL Normal 80-94 [facility] Comment on above: Performed By: #### L 501.9910, L500.4050, L503.6620, L100.0100, L500.4100 #### [facility] [address] [place], [address] Monocytes/100 WBC (Bld) 8.6 % Normal 0-10 [facility] Comment on above: Performed By: #### L 501.9910, L500.4050, L503.6620, L100.0100, L500.4100 #### [facility] [address] [place], [address] Neutrophils/100 WBC (Bld) 60.9 % Normal 47-70 [facility] Comment on above: Performed By: #### L 501.9910, L500.4050, L503.6620, L100.0100, L500.4100 #### [facility] [address] [place], [address] Nucleated RBC (Bld) [#/Vol] 0 10*3/uL Normal 0-5 [facility] Comment on above: Performed By: #### L 501.9910, L500.4050, L503.6620, L100.0100, L500.4100 #### [facility] [address] [place], [address] Platelet mean volume (Bld) [Entitic vol] 9.5 fL Normal 6.2-12.0 [facility] Comment on above: Performed By: #### L 501.9910, L500.4050, L503.6620, L100.0100, L500.4100 #### [facility] [address] [place], [address] Platelets (Bld) [#/Vol] 377 10*3/uL Normal 150-450 [facility] Comment on above: Performed By: #### L 501.9910, L500.4050, L503.6620, L100.0100, L500.4100 #### [facility] [address] [place], [address] RBC (Bld) [#/Vol] 5.41 10*6/uL Normal 4.6-6.2 [facility] Comment on above: Performed By: #### L 501.9910, L500.4050, L503.6620, L100.0100, L500.4100 #### [facility] [address] [place], [address] RDW SD 41.3 fl Normal 35.1-43.9 [facility] Comment on above: Performed By: #### L 501.9910, L500.4050, L503.6620, L100.0100, L500.4100 #### [facility] [address] [place], [address] WBC (Bld) [#/Vol] 5.6 10*3/uL Normal 4.4-11.0 [facility] Comment on above: Performed By: #### L 501.9910, L500.4050, L503.6620, L100.0100, L500.4100 #### [facility] [address] [place], [address] Carbon dioxide measurementOr dered By: Sherin Martinez on 08-07-2024 CO2 [Moles/Vol] 29.0 mmol/L 21.0-32.0 [facility] Chest PA and Lateralon 08-07 Chest PA and Lateral [facility] Imaging Services [address] [place], [place] [address] Chest PA and Lateral MR#: [id number] Acct: [id number] Name: KOLTON WALTER Rep #: [id number] : 1960 M 63 From: Víctor weston DO PCP: ROHINI Cameron Status: REG CLI Study: Chest PA and Lateral Date of Exam: 08/07/24 Exam# [id number] Ordering Dr: Sherin Martinez [id number] EXAM: XR CHEST, 2 VIEWS CLINICAL INDICATION: [...] at 22:12 EST , CC: ROHINI Martinez Engineering Drawings Checker: Signed Normal [facility] Chloride measurementOrdered By: Sherin Martinez on 08-07-2024 Chloride [Moles/Vol] 102 mmol/L 98-107 [facility] Comprehensive Metabolic Prof ilon 08-07-2024 Albumin [Mass/Vol] 4.0 g/dL Normal 3.2-5.0 [facility] Comment on above: Performed By: #### L 501.9910, L500.4050, L503.6620, L100.0100, L500.4100 #### [facility] [address] [place], [address] Albumin/Globulin [Mass ratio] 1.0 {ratio} Normal 0.9-2.4 [facility] Comment on above: Performed By: #### L 501.9910, L500.4050, L503.6620, L100.0100, L500.4100 #### [facility] [address] [place], [address] ALK P 104 U/L Normal 45-117 [facility] Comment on above: Performed By: #### L 501.9910, L500.4050, L503.6620, L100.0100, L500.4100 #### [facility] [address] [place], [address] ALT [Catalytic activity/Vol] 20 U/L Normal 16-61 [facility] Comment on above: Performed By: #### L 501.9910, L500.4050, L503.6620, L100.0100, L500.4100 #### [facility] [address] [place], [address] AST [Catalytic activity/Vol] 20 U/L Normal 15-37 [facility] Comment on above: Performed By: #### L 501.9910, L500.4050, L503.6620, L100.0100, L500.4100 #### [facility] [address] [place], [address] Bilirubin [Mass/Vol] 0.40 mg/dL Normal 0.20-1.00 [facility] Comment on above: Result Comment: For patients on eltrombopag therapy, use of Dimension [place] TBIL is not recommended. Performed By: #### L 501.9910, L500.4050, L503.6620, L100.0100, L500.4100 #### [facility] [address] [place], [address] BUN/CRE 9.1 RATIO Low 10-20 [facility] Comment on above: Performed By: #### L 501.9910, L500.4050, L503.6620, L100.0100, L500.4100 #### [facility] [address] [place], [address] CA,Total 9.4 mg/dL Normal 8.5-10.1 [facility] Comment on above: Performed By: #### L 501.9910, L500.4050, L503.6620, L100.0100, L500.4100 #### [facility] [address] [place], [address] Chloride [Moles/Vol] 102 mmol/L Normal 98-107 [facility] Comment on above: Performed By: #### L 501.9910, L500.4050, L503.6620, L100.0100, L500.4100 #### [facility] [address] [place], [address] CO2 [Moles/Vol] 29.0 mmol/L Normal 21.0-32.0 [facility] Comment on above: Performed By: #### L 501.9910, L500.4050, L503.6620, L100.0100, L500.4100 #### [facility] [address] [place], [address] Creatinine [Mass/Vol] 0.88 mg/dL Normal 0.70-1.30 [facility] Comment on above: Result Comment: The validity of the calculated GFR GFRAA in patients over 70 years has not been determined. Clinical correlation is essential. Performed By: #### L 501.9910, L500.4050, L503.6620, L100.0100, L500.4100 #### [facility] [address] [place], [address] EST GFR - AA 112 mL/min Normal >60 [facility] Comment on above: Result Comment: Afri can [place] GFR Calc Performed By: #### L 501.9910, L500.4050, L503.6620, L100.0100, L500.4100 #### [facility] [address] [place], [address] GAP 6 Normal 5-15 [facility] Comment on above: Performed By: #### L 501.9910, L500.4050, L503.6620, L100.0100, L500.4100 #### [facility] [address] [place], [address] GFR/1.73 sq M.predicted among non-blacks MDRD (S/P/Bld) [Vol rate/Area] 92 mL/min/{1.73_m2} Normal >60 [facility] Comment on above: Result Comment: Non- GFR Calc Performed By: #### L 501.9910, L500.4050, L503.6620, L100.0100, L500.4100 #### [facility] [address] [place], [address] Globulin (S) [Mass/Vol] 4.1 g/dL Normal 2.2-4.2 [facility] Comment on above: Performed By: #### L 501.9910, L500.4050, L503.6620, L100.0100, L500.4100 #### [facility] [address] [place], [address] Glucose [Mass/Vol] 90 mg/dL Normal 74-106 [facility] Comment on above: Performed By: #### L 501.9910, L500.4050, L503.6620, L100.0100, L500.4100 #### [facility] [address] [place], [address] Potassium [Moles/Vol] 5.1 mmol/L Normal 3.5-5.1 [facility] Comment on above: Performed By: #### L 501.9910, L500.4050, L503.6620, L100.0100, L500.4100 #### [facility] [address] [place], [address] Sodium [Moles/Vol] 137 mmol/L Normal 136-145 [facility] Comment on above: Performed By: #### L 501.9910, L500.4050, L503.6620, L100.0100, L500.4100 #### [facility] [address] [place], [address] T PROT 8.1 g/dL Normal 6.4-8.2 [facility] Comment on above: Performed By: #### L 501.9910, L500.4050, L503.6620, L100.0100, L500.4100 #### [facility] [address] [place], [address] Urea nitrogen [Mass/Vol] 8 mg/dL Normal 7-18 [facility] Comment on above: Performed By: #### L 501.9910, L500.4050, L503.6620, L100.0100, L500.4100 #### [facility] [address] [place], [address] Eosinophil percentageOrdered By: Sherin Martinez on 08-07-2024 Eosinophils/100 WBC (Bld) 2.7 % 0-5 [facility] Erythrocyte distribution wid th ratioOrdered By: Sherin Martinez on 08-07-2024 Erythrocyte distribution width (RBC) [Ratio] 12.7 % 11.6-14.6 [facility] Erythrocyte distribution wid th standard deviationOrdered By: Sherin Martinez on 08-07-2024 Erythrocyte distribution width (RBC) [Entitic vol] 41.3 fL 35.1-43.9 [facility] Estimated glomerular filtrat ion rate (GFR) AmericanOrdered By: Sherin Martinez on 08-07-2024 Estimated GFR (MDRD) Amer 112 mL/min >60 [facility] Comment on above: GFR Calc Glomerular filtration rate ( GFR) estimationOrdered By: Sherin Martinez on 08-07-2024 Estimated GFR (MDRD) Non-Af Amer 92 mL/min >60 [facility] Comment on above: Non- GFR Calc Glucose measurementOrdered B y: Sherin Martinez on 08-07-2024 Glucose [Mass/Vol] 90 mg/dL 74-106 [facility] Hematocrit Auto (Bld) [Volum e fraction]Ordered By: Sherinnacho Martinez on 08-07-2024 Hematocrit (Bld) [Volume fraction] 48.1 % 40-54 [facility] Hemoglobin measurementOrdere d By: Sherin Martinez on 08-07-2024 Hemoglobin (Bld) [Mass/Vol] 15.0 g/dL 13.0-16.5 [facility] High density lipoprotein (HD L) measurementOrdered By: Sherinnacho Martinez on 08-07-2024 Cholesterol in HDL [Mass/Vol] 75 mg/dL >40 [facility] Comment on above: The drugs N-Acetylcy steine and Metamizole may falsely depress this assay. Reference Range HDL <40 mg/dL Low HDL Cholesterol HDL >or= 60 mg/dL High HDL Cholesterol Immature granulocytes/100 WB C Auto (Bld)Ordered By: Sherin Martinez on 08-07-2024 Immature granulocytes/100 WBC (Bld) 0.400 % 0.0-0.9 [facility] Comment on above: IG% - Immature Granu locytes (promyelocytes, myelocytes and metamyelocytes) > 1% indicates that a LEFT SHIFT is Present. Laboratory - Chemistry and C hemistry - challengeOrdered By: Sherin Martinez on 08-07-2024 AST [Catalytic activity/Vol] 20 U/L 15-37 [facility] Lipid Profileon 08-07-2024 Cholesterol [Mass/Vol] 198 mg/dL Normal 200 [facility] Comment on above: Result Comment: <200 mg/dL Desirable 200-240 mg/dL Borderline >240 mg/dL High Risk Performed By: #### L 501.9963, L500.4050, L503.6620, L100.0100, L500.4100 #### [facility] [address] [place], [address] Cholesterol in HDL [Mass/Vol] 75 mg/dL Normal [facility] Comment on above: Result Comment: The drugs N-Acetylcysteine and Metamizole may falsely depress this assay. Reference Range HDL <40 mg/dL Low HDL Cholesterol HDL >or= 60 mg/dL High HDL Cholesterol Performed By: #### L 501.9910, L500.4050, L503.6620, L100.0100, L500.4100 #### [facility] [address] [place], [address] Cholesterol in LDL [Mass/Vol] 108 mg/dL Normal 0-130 [facility] Comment on above: Performed By: #### L 501.9910, L500.4050, L503.6620, L100.0100, L500.4100 #### [facility] [address] [place], [address] Cholesterol in VLDL [Mass/Vol] 15 mg/dL Normal 5-40 [facility] Comment on above: Performed By: #### L 501.9910, L500.4050, L503.6620, L100.0100, L500.4100 #### [facility] [address] [place], [address] Triglyceride [Mass/Vol] 74 mg/dL Normal [facility] Comment on above: Result Comment: The drugs N-Acetylcysteine and Metamizole may falsely depress this assay. Serum Triglycerides Reference Interval Normal <150 mg/dL Borderline high 150 - 199 mg/dL High 200 - 499 mg/dL Very High > or = 500 mg/dL Performed By: #### L 501.9910, L500.4050, L503.6620, L100.0100, L500.4100 #### [facility] [address] [place], [address] Low density lipoprotein (LDL ) cholesterol measurementOrdered By: Sherin Martinez on 08-07-2024 Cholesterol in LDL [Mass/Vol] 108 mg/dL 0-130 [facility] Lymphocytes Auto (Unsp spec) [#/Vol]Ordered By: Sherinnacho Martinez on 08-07-2024 Lymphocytes (Bld) [#/Vol] 1.46 10*3/uL 0.83-4.51 [facility] Lymphocytes/100 WBC Auto (Un sp spec)Ordered By: Sherin Martinez on 08-07-2024 Lymphocytes/100 WBC (Bld) 26.3 % 19-41 [facility] MCV (mean corpuscular volume ) determinationOrdered By: Sherinnacho Martinez on 08-07-2024 MCV (RBC) [Entitic vol] 88.9 fL 80-94 [facility] Mean corpuscular hemoglobin (MCH) determinationOrdered By: Sherinnacho Martinez on 08-07-2024 MCH (RBC) [Entitic mass] 27.7 pg 27.0-32.0 [facility] Mean corpuscular hemoglobin concentration (MCHC) determinationOrdered By: Sherinnacho Martinez on 08-07-2024 MCHC (RBC) [Mass/Vol] 31.2 g/dL Low 32-36 [facility] Mean platelet volume determi nationOrdered By: Sherinnacho Martinez on 08-07-2024 Platelet mean volume (Bld) [Entitic vol] 9.5 fL 6.2-12.0 [facility] Monocyte percentageOrdered B y: Sherin Martinez on 08-07-2024 Monocytes/100 WBC (Bld) 8.6 % 0-10 [facility] Neutrophil percentageOrdered By: [place] Jocelyn on 08-07-2024 Neutrophils/100 WBC (Bld) 60.9 % 47-70 [facility] Nucleated red blood cell per centageOrdered By: Hserinnacho Martinez on 08-07-2024 Nucleated RBC/100 WBC (Bld) [Ratio] 0 % 0-5 [facility] PSA,Total - Annual Screenon 08-07-2024 PSA,TOT SCREEN 3.10 ng/mL Normal 0.00-4.00 [facility] Comment on above: Result Comment: This test was performed using the TPSA assay method for the [employer] chemistry system. Values obtained with different assay methods cannot be used interchangably. When changing PSA assays in the course of monitoring a patient, additional sequential testing should be carried out to confirm baseline values. Performed By: #### L 501.9910, L500.4050, L503.6620, L100.0100, L500.4100 #### [facility] [address], [address] Platelet countOrdered By: Ra rupert Martinez on 08-07-2024 Platelets (Bld) [#/Vol] 377 10*3/uL 150-450 [facility] Potassium measurementOrdered By: Sherin Martinez on 08-07-2024 Potassium [Moles/Vol] 5.1 mmol/L 3.5-5.1 [facility] RBC Auto (Bld) [#/Vol]Ordere d By: Sherin Martinez on 08-07-2024 RBC (Bld) [#/Vol] 5.41 10*6/uL 4.6-6.2 [facility] Screening prostate specific antigen (PSA) measurementOrdered By: Sherin Martinez on 08-07-2024 Prostate Specific Antigen Screen 3.10 ng/mL 0.00-4.00 [facility] Comment on above: This test was perfor med using the TPSA assay method for [employer] chemistry system. Values obtained with differentassay methods cannot be used interchangably.When changing PSA assays in the course of monitoring apatient, additional sequential testing should be carriedout to confirm baseline values. Serum anion gap measurementO rdered By: Sherin Martinez on 08-07-2024 Anion gap [Moles/Vol] 6 mmol/L 5-15 [facility] Serum globulin measurementOr dered By: Sherin Martinez on 08-07-2024 Globulin (S) [Mass/Vol] 4.1 g/dL 2.2-4.2 [facility] Serum or plasma alanine camejo otransferase (ALT) measurementOrdered By: Sherin Martinez on 08-07-2024 ALT [Catalytic activity/Vol] 20 U/L 16-61 [facility] Serum or plasma albumin isela urement (mass/volume)Ordered By: Sherin Martinez on 08-07-2024 Albumin [Mass/Vol] 4.0 g/dL 3.2-5.0 [facility] Serum or plasma alkaline fani sphatase measurementOrdered By: Sherin Martinez on 08-07-2024 ALP [Catalytic activity/Vol] 104 U/L 45-117 [facility] Serum or plasma calcium isela urement (mass/volume)Ordered By: Sherin Martinez on 08-07-2024 Calcium [Mass/Vol] 9.4 mg/dL 8.5-10.1 [facility] Serum or plasma cholesterol measurement (mass/volume)Ordered By: Sherin Martinez on 08-07-2024 Cholesterol [Mass/Vol] 198 mg/dL <200 [facility] Comment on above: <200 mg/dL Desirable 200-240 mg/dL Borderline >240 mg/dL High Risk Serum or plasma creatinine m easurement (mass/volume)Ordered By: Sherin Martinez on 08-07-2024 Creatinine [Mass/Vol] 0.88 mg/dL 0.70-1.30 [facility] Comment on above: The validity of the calculated GFR & GFRAA in patients over 70 years has not been determined. Clinical correlation is essential. Serum or plasma urea nitroge n measurement (mass/volume)Ordered By: Sherin Martinez on 08-07-2024 Urea nitrogen [Mass/Vol] 8 mg/dL 7-18 [facility] Sodium levelOrdered By: Jenae Martinez on 08-07-2024 Sodium [Moles/Vol] 137 mmol/L 136-145 [facility] Total proteinOrdered By: Sybil Martinez on 08-07-2024 Protein [Mass/Vol] 8.1 g/dL 6.4-8.2 [facility] Triglycerides measurementOrd ered By: Sherin Martinez on 08-07-2024 Triglyceride [Mass/Vol] 74 mg/dL <199 [facility] Comment on above: The drugs N-Acetylcy steine and Metamizole may falsely depress this assay.Serum Triglycerides Reference Interval Normal <150 mg/dL Borderline high 150 - 199 mg/dL High 200 - 499 mg/dL Very High > or = 500 mg/dL Very low density lipoprotein (VLDL) cholesterol measurementOrdered By: Sherin Martinez on 08-07-2024 VLDL Cholesterol 15 mg/dL 5-40 [facility] White blood cell (WBC) count Ordered By: Sherin Martinez on 08-07-2024 WBC (Bld) [#/Vol] 5.6 10*3/uL 4.4-11.0 [facility] Vital Signs Date Time Vital Sign Value Performing Clinician [place] 03-21-2025 13:59-0400 Body height 165.1 cm Sherin Martinez [employer] Work Phone: [facility] 03-21-2025 13:59-0400 Diastolic blood pressure 66 mm[Hg] Sherin Martinez [employer] Work Phone: [facility] 03-21-2025 13:59-0400 Heart rate 130 /min Sherin Jocelyn [employer] Work Phone: [facility] 03-21-2025 13:59-0400 Respiratory rate 18 /min Sherin Jocelyn [employer] Work Phone: [facility] 03-21-2025 13:59-0400 SaO2% (BldA) [Mass fraction] 93 % Sherin Jocelyn [employer] Work Phone: [facility] 03-21-2025 13:59-0400 Systolic blood pressure 100 mm[Hg] Sherin Martinez [employer] Work Phone: [facility] 02-14-2025 12:04-0400 Diastolic blood pressure 60 mm[Hg] Sherin Martinez [employer] Work Phone: [facility] 02-14-2025 12:04-0400 Systolic blood pressure 82 mm[Hg] Sherin [place] [employer] Work Phone: [facility] 02-14-2025 11:29-0400 Body height 165.1 cm Sherin Martinez [employer] Work Phone: [facility] 02-14-2025 11:29-0400 Body mass index (BMI) [Ratio] 16.5 kg/m2 Sherin Jocelyn [employer] Work Phone: [facility] 02-14-2025 11:29-0400 Body temperature 96.4 [degF] Sherin Jocelyn [employer] Work Phone: [facility] 02-14-2025 11:29-0400 Body weight 44.9 kg Sherin Jocelyn [employer] Work Phone: [facility] 02-14-2025 11:29-0400 Heart rate 97 /min Sherin Jocelyn [employer] Work Phone: [facility] 02-14-2025 11:29-0400 Respiratory rate 18 /min Sherin Jocelyn [employer] Work Phone: [facility] 02-14-2025 11:29-0400 SaO2% (BldA) [Mass fraction] 97 % Sherin Jocelyn [employer] Work Phone: [facility] 10-15-2024 07:22-0400 Body mass index (BMI) [Ratio] 17.6 kg/m2 Sherin Jocelyn [employer] Work Phone: [facility] 10-15-2024 07:22-0400 Body weight 48.08 kg Sherin Jocelyn [employer] Work Phone: [facility] 10-15-2024 07:22-0400 Diastolic blood pressure 79 mm[Hg] Sherin Jocelyn [employer] Work Phone: [facility] 10-15-2024 07:22-0400 Heart rate 96 /min Sherin Jocelyn [employer] Work Phone: [facility] 10-15-2024 07:22-0400 Respiratory rate 18 /min Sherin Jocelyn [employer] Work Phone: [facility] 10-15-2024 07:22-0400 SaO2% (BldA) [Mass fraction] 94 % Sherin Jocelyn [employer] Work Phone: [facility] 10-15-2024 07:22-0400 Systolic blood pressure 117 mm[Hg] Sherin Jocelyn [employer] Work Phone: [facility] 09-06-2024 11:09-0500 Body height 165.1 cm Sherin Jocelyn [employer] Work Phone: [facility] 09-06-2024 11:09-0500 Body mass index (BMI) [Ratio] 17.9 kg/m2 Sherin Jocelyn [employer] Work Phone: [facility] 09-06-2024 11:09-0500 Body weight 48.98 kg Sherin Jocelyn [employer] Work Phone: [facility] 09-06-2024 11:09-0500 Diastolic blood pressure 113 mm[Hg] Sherin Jocelyn [employer] Work Phone: [facility] 09-06-2024 11:09-0500 Heart rate 101 /min Sherin Jocelyn [employer] Work Phone: [facility] 09-06-2024 11:09-0500 Respiratory rate 18 /min Sherin [place] [employer] Work Phone: [facility] 09-06-2024 11:09-0500 Systolic blood pressure 160 mm[Hg] Sherin [place] [employer] Work Phone: [facility] Encounters Encounter Date Encounter Type Care Provider Facility Start: 06-12-2025 ambulatory Bhargav Dem[place] Start: 06-02-2025 ambulatory Bhargav Demiter Facility :[facility] Start: 04-22-2025 End: 04-22-2025 ambulatory Sherin Jocelyn [employer] Work Phone: -Pulmonary Services/Neurology Start: 04-22-2025 End: 04-22-2025 Patient encounter procedure Bhargav Moraiter PA -Pulmonary Services/Neurology Work Phone: Start: 04-22-2025 End: 04-22-2025 ambulatory Bhargav Demumang Facility:[facility] Start: 03-21-2025 End: 03-21-[address] Ned Harrison MD -[facility] Work Phone: Start: 03-21-2025 End: 03-21-2025 ambulatory Sherin Jocelyn [employer] Work Phone: -[facility] Start: 02-14-2025 End: 02-14-2025 Patient encounter procedure Bhargav Parra PA -[facility] Work Phone: Start: 02-14-2025 End: 02-14-2025 ambulatory Sherin Jocelyn [employer] Work Phone: -[facility] Start: 02-12-2025 End: 02-12-2025 ambulatory Sherin Jocelyn [employer] Work Phone: -Laboratory Start: 02-12-2025 End: 02-12-2025 Patient encounter procedure Bhargav Parra PA -Laboratory Work Phone: Start: 02-12-2025 End: 02-12-2025 ambulatory Sherin Jocelyn Facility:[facility] Start: 10-15-2024 End: 10-15-2024 Patient encounter procedure Bhargav Parra [place] -[facility] Work Phone: Start: 10-15-2024 End: 10-15-2024 ambulatory Sherin Jocelyn Facility:[facility] Start: 10-09-2024 ambulatory Ned Harrison Facility:[facility] Start: 10-09-2024 Non-patient / Non-visit Dr. Mitchell APONTE -[facility] Start: 10-09-2024 End: 10-09-2024 ambulatory Sherin Jocelyn [employer] Work Phone: [facility] Work Phone: Start: 10-09-2024 End: 10-09-[address] Ned Harrison MD -Cardiovascular Services Work Phone: Start: 10-09-2024 End: 10-09-2024 ambulatory Ned Harrison Facility:[facility] Start: 09-06-2024 End: 09-06-[address] Ned Harrison MD -[facility] Work Phone: Start: 09-06-2024 End: 09-06-2024 ambulatory Nedsilver Harrison Facility:[facility] Start: 08-27-2024 Encounter for genera l adult medical examination with abnormal findings Sherin Martinez [facility] Start: 08-07-2024 End: 08-07-2024 Patient encounter procedure Sherin Martinez [employer] -Laboratory, [facility] Start: 08-07-2024 End: 08-07-2024 ambulatory Sherin Martinez Facility:[facility] Procedures Date Procedure Procedure Detail Performing Clinician Start: 10-09-2024 Radionuclide imaging of perfusion of myocardium under exercise stress Sherin Martinez [employer] Work Phone: Start: 09-06-2024 Evaluation of diagno stic study results Sherin Martinez [employer] Work Phone: Start: 08-07-2024 X-ray of chest, PA a nd lateral views Sherin Martinez [employer] Work Phone: Plan of Treatment Date Care Activity Detail Author Start: 03-21-2025 End: 03-21-2025 Evaluation of diagnostic study results [facility] Lipid 1995 panel - S flako or Plasma [facility] Lipid 1995 panel - S flako or Plasma [facility] Payers Date Payer Category Payer Private Health Insurance [id number] 2024 Self-pay Unknown [id number] Unknown [id number] 2.16.8 [id number] Unknown [id number] 2.16.8 [id number] Unknown [id number] 2.16.8 [id number] Unknown [id number] 2.16.8 [id number] Unknown [id number] 2.16.8 [id number] Unknown [id number] 2.16.8 [id number] Unknown [id number] 2.16.8 [id number] Unknown [id number] 2.16.8 [id number] Unknown [id number] 2.16.8 [id number] Unknown [id number] 2.16.8 [id number] Unknown [id number] 2.16.8 [id number] Social History Date Type Detail Facility Start[facility]15-[facility] Start: 10-17-2024 Sex Male (finding) [facility] Start: 1960 Sex Assigned At Male [facility] Sex Male [facility] Evaluation note 02-14-2025 Note Date & Type Note Facility 02-14-2025 Evaluation note Diagnosis Onset Date Resolution SOB (shortness of breath) acute February 14, 2025 11:16am CAD (coronary artery disease) chronic February 14, 2025 11:16am Hx of non-ST elevation myocardial infarction (NSTEMI) chronic February 14, 2025 11:16am Hypertension chronic February 14, 2 025 11:16am [facility] Work Phone: Evaluation note 02-14-2025 Note Date [...] 1:37pm Tachycardia acute March 21, 2025 1:37pm [facility] Work Phone: Evaluation note 09-06-2024 Note [...] 10:56am Hypertension chronic October 15, 2024 10:56am [facility] Work Phone: Evaluation note Note Date & Type Note Facility Evaluation note Diagnosis Onset Date Resolution SOB (shortness of breath) acute February 14, 2025 11:16am CAD (coronary artery disease) chronic February 14, 2025 11:16am Hx of non-ST elevation myocardial infarction (NSTEMI) chronic February 14, 2025 11:16am Hypertension chronic February 14 11:16am [facility] Work Phone: Hospital Discharge instructions Note Date & Type Note Facility Hospital Discharge instructions Ambulatory OrdersPulmonary Medicine Location: None Selected [facility] Work Phone: Reason for referral (narrative) Note Date & Type Note Facility Reason for referral (narrative) No reason for referral information available [facility] Work Phone: Chief Complaint and Reason for [...] 2024 End: September 06, 2024 Sherin Martinez [employer] Referring Provider Active St art: September 06, 2024 End: September 06, 2024 Dr. Ned Harrison MD Attending Provider Active S tart: September 06, 2024 End: September 06, 2024 Team Status: Inactive Member Role Status Dates Sherin Martinez , [employer] Primary Care Provider Active Start: October 09, 2024 End: October 09, 2024 Dr. Ned Harrison MD Attending Provider Active S tart: October 09, 2024 End: October 09, 2024 Dr. Ned Harrison MD Referring Provider Active S tart: October 09, 2024 End: October 09, 2024 Team Status: Active Member Role Status Dates Sherin Martinez [employer] Primary Care Provider Active Start: October 09, 2024 Dr. Ned Harrison MD Attending Provider Active S tart: October 09, 2024 Team Status: Inactive Member Role Status Dates Sherin Martinez [employer] Primary Care Provider Active Start: October 15, 2024 End: October 15, 2024 Sherin Martinez , [employer] Referring Provider Active St art: October 15, 2024 End: October 15, 2024 KELLY Herrera Attending Provider Active St art: October 15, 2024 End: October 15, 2024 Team Status: Active Member Role/Relationship Status Dates Sherin Martinez , [employer] Primary Care Provider Active Team Status: Active Member Role/Relationship Status Dates Sherin Martinez , [employer] Primary Care Provider Active Start: February 12, 2025 KELLY Herrera Attending Provider Active St art: February 12, 2025 KELLY Herrera Referring Provider Active St art: February 12, 2025 Team Status: Inactive Member Role/Relationship Status Dates Sherin Martinez , [employer] Primary Care Provider Active Start: February 14, 2025 End: February 14, 2025 Sherin Martinez , [employer] Referring Provider Active St art: February 14, 2025 End: February 14, 2025 KELLY Herrera Attending Provider Active St art: February 14, 2025 End: February 14, 2025 Team Status: Inactive Member Role/Relationship Status Dates Sherin Martinez [employer] Primary Care Provider Active Start: February 12, 2025 End: February 12, 2025 KELLY Herrera Attending Provider Active St art: February 12, 2025 End: February 12, 2025 KELLY Herrera Referring Provider Active St art: February 12, 2025 End: February 12, 2025 Team Status: Inactive Member Role/Relationship Status Dates Sherin Martinez , [employer] Primary Care Provider Active Start: March 21, 2025 End: March 21, 2025 Sherin Martinez , [employer] Referring Provider Active St art: March 21, 2025 End: March 21, 2025 Dr. Ned Harrison MD Attending Provider Active S tart: March 21, 2025 End: March 21, 2025 Team Status: Active Member Role/Relationship Status Dates Sherin Martinez [employer] Primary care physician Active Team Status: Inactive Member Role/Relationship Status Dates Sherin Martinez , [employer] Primary care physician Active Start: February 12, 2025 End: February 12, 2025 KELLY Herrera Attending physician Active S tart: February 12, 2025 End: February 12, 2025 KELLY Herrera Referring Provider Active St art: February 12, 2025 End: February 12, 2025 Team Status: Inactive Member Role/Relationship Status Dates Sherin Martinez [employer] Primary care physician Active Start: February 14, 2025 End: February 14, 2025 Sherin Martinez , [employer] Referring Provider Active St art: February 14, 2025 End: February 14, 2025 KELLY Herrera Attending physician Active S tart: February 14, 2025 End: February 14, 2025 Team Status: Inactive Member Role/Relationship Status Dates Sherin Martinez , [employer] Primary care physician Active Start: March 21, 2025 End: March 21, 2025 Sherin Martinez , [employer] Referring Provider Active St art: March 21, 2025 End: March 21, 2025 Dr. Ned Harrison MD Attending physician Active Start: March 21, 2025 End: March 21, 2025 Team Status: Inactive Member Role/Relationship Status Dates Sherin Martinez , T[employer]PER [employer] Primary care physician Active Start: April 22, [...] section and content) DATE CREATED AUTHOR 06/05/2025 [facility] FOR RECORDS PERTAINING TO PATIENTS WHO ARE [...] BE BASED ON THE PRIMARY CLINICAL RECORDS. [employer] provides no warranty or guarantee of the accuracy or completeness of information in this document.
== END | disposition home or self-care (01) ==
PROVIDERS: PCP Nurse Practitioner Family; Referring Provider Internal Medicine Critical Care Medicine; Visit Provider Internal Medicine Critical Care Medicine
DX: Z12.2 Encounter for screening for malignant neoplasm of respiratory organs (principal); F17.210 Nicotine dependence, cigarettes, uncomplicated
CPT/HCPCS: 71271

== ENCOUNTER → 2025-07-10 | Outpatient (CLI) | payer OTHER, SELFPAY ==
[2025-07-10 13:35] VITALS: PULSE 122; PULSE 129; PULSE 130; PULSE 133; PULSE 135; PULSE 137; O2SAT 90; O2SAT 91; O2SAT 92; O2SAT 93; O2SAT 95; O2SAT 96; O2SAT 98
--- OUTSIDE RECORDS SUMMARY | 2025-07-10 18:58 | XMS RPT_ITS | CCD ---
Author Organization [facility] Care Team Providers Care Edge Dyer Name Role Phone Jocelyn MACHINE STRAW HAT PRESSER-C, Sherin Primary Care Provider Jocelyn MACHINE STRAW HAT PRESSER-C, Sherin Attending Provider [phone] Jocelyn MACHINE STRAW HAT PRESSER-C, Sherin Referring Provider Christy APONTE, Dr. Marino Attending Provider [phone] Ned Harrison MD Referring Provider [phone] Ynes Hectoryler Attending Provider [phone] Jocelyn MACHINE STRAW HAT PRESSER-C, Sherin Primary Care Provider Ynes Hectoryler Attending Provider Aida MENDOZA Bhargav Referring Provider [phone] Jocelyn MACHINE STRAW HAT PRESSER-C, Sherin Referring Provider Christy APONTE, Dr. Marino Attending Provider [phone] Jocelyn MACHINE STRAW HAT PRESSER-C, Sherin Primary Care Physician Bhargav Hector Attending [...] Bhargav Referring Unavailable Demiter, Bhargav Attending Unavailable [facility] Primary Care Unavailable Demiter, Bhargav Referring Unavailable Demiter, Bhargav Attending Unavailable [facility] Primary Care Unavailable [facility] Primary Care Unavailable [facility] Attending Unavailable [facility] Referring Unavailable ChristyNed tan Attending Unavailable [facility] Referring Unavailable [facility] Primary Care Unavailable Ned Harrison Attending Unavailable [facility] Primary Care Unavailable Medications Current Medications Medication Drug Class(es) Dates Sig (Normalized) Sig (Original) [id number] 200 actuat albuterol 0.09 mg/actuat metered dose [...] Office Visit Reporton 2024 Office Visit Report [facility] [address] [place] [address] OFFICE VISIT Date of Service: 03/21/25 MR#: [id number] Acct: [id number] Patient: KOLTON WALTER Rep #: [id number] : 1960 Provider: Dr. Ned Harrison MD Age/Sex: 64/M Location: [facility] [place] Status: Signed Intake Vital Signs 02/14/25 [...] with activity as well. To establish with [facility] 05/01/25. Denies chest pain. No [...] Orders: Orders 12 Lead EKG performed by [facility] [place] 03/21/25 R00.0 - Tachycardia, unspecified 03/21/25 1525 Date Bhargav MENDOZA 03/24/25 0839 Cosigner Signature: Date (if applicable) Ned Harrison MD CC: Normal [facility] Cardiology Visit Reporton Cardiology Visit Report [facility] [address] [place] [address] OFFICE VISIT Date of Service: 02/14/25 MR#: [id number] Acct: [id number] Name: KOLTON WALTER Rep #: [id number] : 1960 Provider: KELLY Herrera Age/Sex: 64/M Location: [facility] Status: Signed HPI HPI History of [...] air Intake Visit Reasons: 4 M FU Urology Surgeon Required: No Accompanied by: Self Is patient [...] Negative epis (more content not included)... Normal [facility] Calculated very low density lipoprotein (VLDL) cholesterol measurementOrdered By: Bhargav Parra on 02-12-2025 Calculated very low density lipoprotein (VLDL) cholesterol measurement 10 mg/dL 5-40 [facility] LDL calc ser/plasOrdered By: Bhargav Parra on 02-12-2025 Cholesterol in LDL [Mass/Vol] 99 mg/dL [facility] Comment on above: Pihsuqhmho=808-297 m g/dL & Higher Xobi=078 mg/dL or greater Lipid Profileon 02-12-2025 CHOL:HDL 2.56 Normal [facility] Comment on above: Performed By: #### L 500.4100 #### [facility] [address] [facility] [place], [address] Cholesterol [Mass/Vol] 179 mg/dL Normal <=200 [facility] Comment on above: Result Comment: Chol esterol level, Desirable <200 mg/dL Borderline high cholesterol 200-239 mg/dL High cholesterol >=240 mg/dL Recommendations of the NCEP Adult Treatment Panel for the following risk-cutoff thresholds for the [place] population. Performed By: #### L 500.4100 #### [facility] [address] [place], [address] Cholesterol in HDL [Mass/Vol] 70 mg/dL Normal [facility] Comment on above: Result Comment: Rocio onal Cholesterol Education Program (NCEP) guidelines: <40 mg/dL: Low HDL-cholesterol (major risk factor for CHD) >= 60 mg/dL: High HDL-cholesterol (negative risk factor for CHD) HDL-cholesterol is affected by a number of factors, e.g. smoking, exercise, hormones, sex and age. Performed By: #### L 500.4100 #### [facility] [address] [place], [address] Cholesterol in LDL [Mass/Vol] 99 mg/dL Normal [facility] Comment on above: Result Comment: Bord nzuzqh=770-653 mg/dL Higher Hhni=393 mg/dL or greater Performed By: #### L 500.4100 #### [facility] [address] [place], [address] Cholesterol in VLDL [Mass/Vol] 10 mg/dL Normal 5-40 [facility] Comment on above: Performed By: #### L 500.4100 #### [facility] [address] [place], [address] Triglyceride [Mass/Vol] 49 mg/dL Normal [facility] Comment on above: Result Comment: The drugs N-Acetylcysteine and Metamizole may falsely depress this assay. Normal range: <150 mg/dL Borderline High: 150-199 mg/dL High: 200-499 mg/dL Very High: >500 mg/dL Performed By: #### L 500.4100 #### [facility] [address] [place], [address] Screening total cholesterol/ high density lipoprotein (HDL) cholesterol ratioOrdered By: Bhargav Parra on 02-12-2025 Cholesterol.total/Carmelina sterol in HDL [Mass ratio] 2.56 {ratio} [facility] Serum or plasma cholesterol in HDL measurement (mass/volume)Ordered By: Bhargav Parra on 02-12-2025 Cholesterol in HDL [Mass/Vol] 70 mg/dL >40 [facility] Comment on above: National Cholesterol Education Program (NCEP) guidelines:<40 mg/dL: Low HDL-cholesterol (major risk factor for CHD)>= 60 mg/dL: High HDL-cholesterol (negative risk factor for CHD)HDL-cholesterol is affected by a number of factors, e.g. smoking, exercise, hormones, sex and age. Serum or plasma cholesterol measurement (mass/volume)Ordered By: Bhargav Parra on 02-12-2025 Cholesterol [Mass/Vol] 179 mg/dL <201 [facility] Comment on above: Cholesterol level, D esirable <200 mg/dLBorderline high cholesterol 200-239 mg/dLHigh cholesterol >=240 mg/dLRecommendations of the NCEP Adult Treatment Panel for the following risk-cutoff thresholds for the [place] population. Triglycerides measurementOrd ered By: Bhargav Parra on 02-12-2025 Triglyceride [Mass/Vol] 49 mg/dL <199 [facility] Comment on above: The drugs N-Acetylcy steine and Metamizole may falsely depress this assay. Normal range: <150 mg/dLBorderline High: 150-199 mg/dLHigh: 200-499 mg/dLVery High: >500 mg/dL Cardiology Visit Reporton Cardiology Visit Report [facility] [address] [place] [address] OFFICE VISIT Date of Service: 10/15/24 MR#: [id number] Acct: [id number] Name: KOLTON WALTER Rep #: [id number] : 1960 Provider: KELLY Herrera Age/Sex: 64/M Location: [facility] [place] Status: Signed HPI HPI History of [...] follow-up with PCP and possibly see a kiln firer helper. Patient reports fatigue over the last 6 [...] air Intake Visit Reasons: 4 W FU Urology Surgeon Required: No Accompanied by: Self Is patient [...] XL) Ejection fraction %: 55 [facility] Medical History COPD (chronic obstructive [...] vomiting, heartburn, (more content not included)... Normal [facility] Cardiovascular stress test r eportOrdered By: Ned Harrison on 10-09-2024 Study report [facility] [address] [place] [address] MR#: [id number] Acct: [id number] Name: KOLTON WALTER Rep #: [id number] : 1960 64 From: Ned Harrison MD [...] ~ Date Dictated: 10/09/241800 Date Transcribed: 10/09/241800 Pizza Chef: CO Signed [facility] Work Phone: Echo Completeon 10-09-2024 Echo Complete [facility] [address] [facility] [place] [address] Echo Complete 10/09/24 0822 MR#: [id number] Acct: [id number] Name: KOLTON WALTER Rep #: [id number] : 1960 64 From: Ned Harrison MD [...] Date Dictated: 10/09/2422 Date Transcribed: 10/09/24 131 Pizza Chef: Signed Normal [facility] Echocardiogram study reportO rdered By: Ned Harrison on 10-09-2024 Study report [facility] [address] [place] [address] Echo Complete 10/09/24 0822 MR#: [id number] Acct: [id number] Name: KOLTON WALTER Rep #:[id number] : 1960 64 From: Ned Leach Attending Dr: Dr. Ned Harrison MD S tatus: REG CLI Ordering Dr: Ned Harrison MD Date: Location: [facility] Sex: M C Admitted: Reason For Study [...] Jimmy Rose RCS 10/09/24 1313 Date _ Nde Harrison MD CC: MACHINE STRAW HAT PRESSER-C Sherin Martinez; Dr. Ned Harrison MD ~ Date Dictated: 10/09/24821 Date Transcribed: 10/09/24 1313 Pizza Chef: Signed [facility] Work Phone: Stress Reporton 10-09-2024 Stress Report [facility] [address] [place] [address] MR#: [id number] Acct: [id number] Name: KOLTON WALTER Rep #: [id number] : 1960 64 From: Ned Harrison MD [...] MD Date Dictated: 10/09/241800 Date Transcribed: 10/09/241800 Pizza Chef: CO Signed Normal [facility] 12 Lead EKG performed by [facility] [place] on 09-06-2024 12 Lead EKG performed by [address] [place] [address] 12 Lead EKG performed by [facility] [place] 09/06/241107 MR#: [id number] Acct: [id number] Name: KOLTON WALTER Rep #: [id number] : 1960 64 From: Ned Harrison MD Attending Dr: Dr. Ned Harrison MD Status: DEP A MB Ordering Dr: Ned Harrison MD Date: 09/06/24 [place] [facility] [place] Sex: M C Admitted: BMS/12 Lead EKG performed by [facility] [place] ECG Report Interpretation ---Sinus Rhythm -Short [place] syndrome Patricia = 118-RSR(V1) -nondiagnostic. BORDERLINE RHYTHMElectronically signed on 09/09/2024 at 08:07 by Ned Harrisonwood Software Version 8610 09/09/24 0812 Date Ned Harrison MD CC: ROHINI Martinez Date Dictated: 09/06/241107 Date Transcribed: 09/06/241107 Pizza Chef: CO Signed Normal [facility] Cardiology Visit Reporton Cardiology Visit Report [facility] [address] [place], [place] [address] OFFICE VISIT Date of Service: 09/06/24 MR#: [id number] Acct: [id number] Name: KOLTON WALTER Rep #: [id number] : 1960 Provider: Dr. Ned Harrison MD Age/Sex: 64/M Location: [facility] 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 He presents now complaining of [...] NIBP Intake Visit Reasons: OLD M.I/EST (JOCELYN) Urology Surgeon Required: No Is patient in pain?: No [...] visual inspecti (more content not included)... Normal [facility] Absolute neutrophil countOrd ered By: Sherin Martinez on 08-07-2024 Neutrophils (Bld) [#/Vol] 3.4 10*3/uL 2.0-7.7 [facility] Albumin to globulin ratioOrd ered By: Sherin Martinez on 08-07-2024 Albumin/Globulin [Mass ratio] 1.0 {ratio} 0.9-2.4 [facility] BNP (brain natriuretic pepti de measurement)Ordered By: Sherin Martinez on 08-07-2024 Natriuretic peptide B (Bld) [Mass/Vol] 14.0 pg/mL 0-100 [facility] BNP,B-Type NATRIURETIC PEPTI Rafi 08-07-2024 Natriuretic peptide B (Bld) [Mass/Vol] 14.0 pg/mL Normal 0-100 [facility] Comment on above: Performed By: #### L 501.9910, L500.4050, L503.6620, L100.0100, L500.4100 #### [facility] [address] [place] [address]. [place], [address] Basophil percentageOrdered B y: Sherin Martinez on 08-07-2024 Basophils/100 WBC (Bld) 1.1 % High 0-1 [facility] Bilirubin, totalOrdered By: Sherin Martinez on 08-07-2024 Bilirubin [Mass/Vol] 0.40 mg/dL 0.20-1.00 [facility] Comment on above: For patients on eltr ombopag therapy, use of Dimension [place] TBIL is not recommended. Blood urea nitrogen (BUN)/cr eatinine ratioOrdered By: Sherin Martinez on 01-15-2025 Urea nitrogen/Creatinine [Mass ratio] 9.1 mg/mg Low 10-20 [facility] CBC W/Diff, Automatedon 07-24-2024 Absolute Lymph 1.46 X10 3/uL Normal 0.83-4.51 [facility] Comment on above: Performed By: #### L 501.9910, L500.4050, L503.6620, L100.0100, L500.4100 #### [facility] [address] [place], [address] Absolute Neut 3.4 X10 3/uL Normal 2.0-7.7 [facility] Comment on above: Performed By: #### L 501.9910, L500.4050, L503.6620, L100.0100, L500.4100 #### [facility] [address] [place], [address] Basophils/100 WBC (Bld) 1.1 % High 0-1 [facility] Comment on above: Performed By: #### L 501.9910, L500.4050, L503.6620, L100.0100, L500.4100 #### [facility] [address] [place], [address] Eosinophils/100 WBC (Bld) 2.7 % Normal 0-5 [facility] Comment on above: Performed By: #### L 501.9910, L500.4050, L503.6620, L100.0100, L500.4100 #### [facility] [address] [place], [address] Erythrocyte distribution width (RBC) [Ratio] 12.7 % Normal 11.6-14.6 [facility] Comment on above: Performed By: #### L 501.9910, L500.4050, L503.6620, L100.0100, L500.4100 #### [facility] [address] [place], [address] Hematocrit (Bld) [Volume fraction] 48.1 % Normal 40-54 [facility] Comment on above: Performed By: #### L 501.9910, L500.4050, L503.6620, L100.0100, L500.4100 #### [facility] [address] [place], [address] Hemoglobin (Bld) [Mass/Vol] 15.0 g/dL Normal 13.0-16.5 [facility] Comment on above: Performed By: #### L 501.9910, L500.4050, L503.6620, L100.0100, L500.4100 #### [facility] [address] [place], [address] IG% 0.400 Normal 0.0-0.9 [facility] Comment on above: Result Comment: IG% - Immature Granulocytes (promyelocytes, myelocytes and metamyelocytes) > 1% indicates that a LEFT SHIFT is Present. Performed By: #### L 501.9910, L500.4050, L503.6620, L100.0100, L500.4100 #### [facility] [address] [place], [address] Lymphocytes/100 WBC (Bld) 26.3 % Normal 19-41 [facility] Comment on above: Performed By: #### L 501.9910, L500.4050, L503.6620, L100.0100, L500.4100 #### [facility] [address] [place], [address] MCH (RBC) [Entitic mass] 27.7 pg Normal 27.0-32.0 [facility] Comment on above: Performed By: #### L 501.9910, L500.4050, L503.6620, L100.0100, L500.4100 #### [facility] [address] [place], [address] MCHC (RBC) [Mass/Vol] 31.2 g/dL Low 32-36 [facility] Comment on above: Performed By: #### L 501.9910, L500.4050, L503.6620, L100.0100, L500.4100 #### [facility] [address] [place], [address] MCV (RBC) [Entitic vol] 88.9 fL Normal 80-94 [facility] Comment on above: Performed By: #### L 501.9910, L500.4050, L503.6620, L100.0100, L500.4100 #### [facility] [address] [place], [address] Monocytes/100 WBC (Bld) 8.6 % Normal 0-10 [facility] Comment on above: Performed By: #### L 501.9910, L500.4050, L503.6620, L100.0100, L500.4100 #### [facility] [address] [place], [address] Neutrophils/100 WBC (Bld) 60.9 % Normal 47-70 [facility] Comment on above: Performed By: #### L 501.9910, L500.4050, L503.6620, L100.0100, L500.4100 #### [facility] [address] [place], [address] Nucleated RBC (Bld) [#/Vol] 0 10*3/uL Normal 0-5 [facility] Comment on above: Performed By: #### L 501.9910, L500.4050, L503.6620, L100.0100, L500.4100 #### [facility] [address] [place], [address] Platelet mean volume (Bld) [Entitic vol] 9.5 fL Normal 6.2-12.0 [facility] Comment on above: Performed By: #### L 501.9910, L500.4050, L503.6620, L100.0100, L500.4100 #### [facility] [address] [place], [address] Platelets (Bld) [#/Vol] 377 10*3/uL Normal 150-450 [facility] Comment on above: Performed By: #### L 501.9910, L500.4050, L503.6620, L100.0100, L500.4100 #### [facility] [address] [place], [address] RBC (Bld) [#/Vol] 5.41 10*6/uL Normal 4.6-6.2 [facility] Comment on above: Performed By: #### L 501.9910, L500.4050, L503.6620, L100.0100, L500.4100 #### [facility] [address] [place], [address] RDW SD 41.3 fl Normal 35.1-43.9 [facility] Comment on above: Performed By: #### L 501.9910, L500.4050, L503.6620, L100.0100, L500.4100 #### [facility] [address] [place], [address] WBC (Bld) [#/Vol] 5.6 10*3/uL Normal 4.4-11.0 [facility] Comment on above: Performed By: #### L 501.9910, L500.4050, L503.6620, L100.0100, L500.4100 #### [facility] [address] [place], [address] Carbon dioxide measurementOr dered By: Sherin Martinez on 08-07-2024 CO2 [Moles/Vol] 29.0 mmol/L 21.0-32.0 [facility] Chest PA and Lateralon 08-07 Chest PA and Lateral [facility] Services [address] [place], [place] [address] Chest PA and Lateral MR#: [id number] Acct: [id number] Name: KOLTON WALTER Rep #: [id number] : 1960 M 63 From: Víctor weston DO PCP: ROHINI Cameron Status: REG CLI Study: Chest PA and Lateral Date of Exam: 08/07/24 Exam# [id number] Ordering Dr: Sherin Martinez [id number] EXAM: XR CHEST, 2 VIEWS CLINICAL INDICATION: [...] at 22:12 EST , CC: ROHINI Martinez Pizza Chef: Signed Normal [facility] Chloride measurementOrdered By: Sherin Martinez on 08-07-2024 Chloride [Moles/Vol] 102 mmol/L 98-107 [facility] Comprehensive Metabolic Prof ilon 08-07-2024 Albumin [Mass/Vol] 4.0 g/dL Normal 3.2-5.0 [facility] Comment on above: Performed By: #### L 501.9910, L500.4050, L503.6620, L100.0100, L500.4100 #### [facility] [address] [place], [address] Albumin/Globulin [Mass ratio] 1.0 {ratio} Normal 0.9-2.4 [facility] Comment on above: Performed By: #### L 501.9910, L500.4050, L503.6620, L100.0100, L500.4100 #### [facility] [address] [place], [address] ALK P 104 U/L Normal 45-117 [facility] Comment on above: Performed By: #### L 501.9910, L500.4050, L503.6620, L100.0100, L500.4100 #### [facility] [address] [place], [address] ALT [Catalytic activity/Vol] 20 U/L Normal 16-61 [facility] Comment on above: Performed By: #### L 501.9910, L500.4050, L503.6620, L100.0100, L500.4100 #### [facility] [address] [place], [address] AST [Catalytic activity/Vol] 20 U/L Normal 15-37 [facility] Comment on above: Performed By: #### L 501.9910, L500.4050, L503.6620, L100.0100, L500.4100 #### [facility] [address] [place], [address] Bilirubin [Mass/Vol] 0.40 mg/dL Normal 0.20-1.00 [facility] Comment on above: Result Comment: For patients on eltrombopag therapy, use of Dimension [place] TBIL is not recommended. Performed By: #### L 501.9910, L500.4050, L503.6620, L100.0100, L500.4100 #### [facility] [address] [place], [address] BUN/CRE 9.1 RATIO Low 10-20 [facility] Comment on above: Performed By: #### L 501.9910, L500.4050, L503.6620, L100.0100, L500.4100 #### [facility] [address] [place], [address] CA,Total 9.4 mg/dL Normal 8.5-10.1 [facility] Comment on above: Performed By: #### L 501.9910, L500.4050, L503.6620, L100.0100, L500.4100 #### [facility] [address] [place], [address] Chloride [Moles/Vol] 102 mmol/L Normal 98-107 [facility] Comment on above: Performed By: #### L 501.9910, L500.4050, L503.6620, L100.0100, L500.4100 #### [facility] [address] [place], [address] CO2 [Moles/Vol] 29.0 mmol/L Normal 21.0-32.0 [facility] Comment on above: Performed By: #### L 501.9910, L500.4050, L503.6620, L100.0100, L500.4100 #### [facility] [address] [place], [address] Creatinine [Mass/Vol] 0.88 mg/dL Normal 0.70-1.30 [facility] Comment on above: Result Comment: The validity of the calculated GFR GFRAA in patients over 70 years has not been determined. Clinical correlation is essential. Performed By: #### L 501.9910, L500.4050, L503.6620, L100.0100, L500.4100 #### [facility] [address] [place], [address] EST GFR - AA 112 mL/min Normal >60 [facility] Comment on above: Result Comment: Afri can [place] GFR Calc Performed By: #### L 501.9910, L500.4050, L503.6620, L100.0100, L500.4100 #### [facility] [address] [place], [address] GAP 6 Normal 5-15 [facility] Comment on above: Performed By: #### L 501.9910, L500.4050, L503.6620, L100.0100, L500.4100 #### [facility] [address] [place], [address] GFR/1.73 sq M.predicted among non-blacks MDRD (S/P/Bld) [Vol rate/Area] 92 mL/min/{1.73_m2} Normal >60 [facility] Comment on above: Result Comment: Non- GFR Calc Performed By: #### L 501.9910, L500.4050, L503.6620, L100.0100, L500.4100 #### [facility] [address] [place], [address] Globulin (S) [Mass/Vol] 4.1 g/dL Normal 2.2-4.2 [facility] Comment on above: Performed By: #### L 501.9910, L500.4050, L503.6620, L100.0100, L500.4100 #### [facility] [address] [place], [address] Glucose [Mass/Vol] 90 mg/dL Normal 74-106 [facility] Comment on above: Performed By: #### L 501.9910, L500.4050, L503.6620, L100.0100, L500.4100 #### [facility] [address] [place], [address] Potassium [Moles/Vol] 5.1 mmol/L Normal 3.5-5.1 [facility] Comment on above: Performed By: #### L 501.9910, L500.4050, L503.6620, L100.0100, L500.4100 #### [facility] [address] [place], [address] Sodium [Moles/Vol] 137 mmol/L Normal 136-145 [facility] Comment on above: Performed By: #### L 501.9910, L500.4050, L503.6620, L100.0100, L500.4100 #### [facility] [address] [place], [address] T PROT 8.1 g/dL Normal 6.4-8.2 [facility] Comment on above: Performed By: #### L 501.9910, L500.4050, L503.6620, L100.0100, L500.4100 #### [facility] [address] [place], [address] Urea nitrogen [Mass/Vol] 8 mg/dL Normal 7-18 [facility] Comment on above: Performed By: #### L 501.9910, L500.4050, L503.6620, L100.0100, L500.4100 #### [facility] [address] [place], [address] Eosinophil percentageOrdered By: Sherin Martinez on 08-07-2024 Eosinophils/100 WBC (Bld) 2.7 % 0-5 [facility] Erythrocyte distribution wid th ratioOrdered By: Sherin Martinez on 08-07-2024 Erythrocyte distribution width (RBC) [Ratio] 12.7 % 11.6-14.6 [facility] Erythrocyte distribution wid th standard deviationOrdered By: Sherin Martinez on 08-07-2024 Erythrocyte distribution width (RBC) [Entitic vol] 41.3 fL 35.1-43.9 [facility] Estimated glomerular filtrat ion rate (GFR) AmericanOrdered By: Sherin Martinez on 08-07-2024 Estimated GFR (MDRD) Amer 112 mL/min >60 [facility] Comment on above: GFR Calc Glomerular filtration rate ( GFR) estimationOrdered By: Sherin Martinez on 08-07-2024 Estimated GFR (MDRD) Non-Af Amer 92 mL/min >60 [facility] Comment on above: Non- GFR Calc Glucose measurementOrdered B y: Sherin Martinez on 08-07-2024 Glucose [Mass/Vol] 90 mg/dL 74-106 [facility] Hematocrit Auto (Bld) [Volum e fraction]Ordered By: Sherinnacho Martinez on 08-07-2024 Hematocrit (Bld) [Volume fraction] 48.1 % 40-54 [facility] Hemoglobin measurementOrdere d By: Sherin Martinez on 08-07-2024 Hemoglobin (Bld) [Mass/Vol] 15.0 g/dL 13.0-16.5 [facility] High density lipoprotein (HD L) measurementOrdered By: Sherinnacho Martinez on 08-07-2024 Cholesterol in HDL [Mass/Vol] 75 mg/dL >40 [facility] Comment on above: The drugs N-Acetylcy steine and Metamizole may falsely depress this assay. Reference Range HDL <40 mg/dL Low HDL Cholesterol HDL >or= 60 mg/dL High HDL Cholesterol Immature granulocytes/100 WB C Auto (Bld)Ordered By: Sherin Martinez on 08-07-2024 Immature granulocytes/100 WBC (Bld) 0.400 % 0.0-0.9 [facility] Comment on above: IG% - Immature Granu locytes (promyelocytes, myelocytes and metamyelocytes) > 1% indicates that a LEFT SHIFT is Present. Laboratory - Chemistry and C hemistry - challengeOrdered By: Sheirn Martinez on 08-07-2024 AST [Catalytic activity/Vol] 20 U/L 15-37 [facility] Lipid Profileon 08-07-2024 Cholesterol [Mass/Vol] 198 mg/dL Normal 200 [facility] Comment on above: Result Comment: <200 mg/dL Desirable 200-240 mg/dL Borderline >240 mg/dL High Risk Performed By: #### L 501.9935, L500.4050, L503.6620, L100.0100, L500.4100 #### [facility] [address] [place], [address] Cholesterol in HDL [Mass/Vol] 75 mg/dL Normal [facility] Comment on above: Result Comment: The drugs N-Acetylcysteine and Metamizole may falsely depress this assay. Reference Range HDL <40 mg/dL Low HDL Cholesterol HDL >or= 60 mg/dL High HDL Cholesterol Performed By: #### L 501.9910, L500.4050, L503.6620, L100.0100, L500.4100 #### [facility] [address] [place], [address] Cholesterol in LDL [Mass/Vol] 108 mg/dL Normal 0-130 [facility] Comment on above: Performed By: #### L [id number], L500.4050, L503.6620, L100.0100, L500.4100 #### [facility] [address] [place], [address] Cholesterol in VLDL [Mass/Vol] 15 mg/dL Normal 5-40 [facility] Comment on above: Performed By: #### L [id number], L500.4050, L503.6620, L100.0100, L500.4100 #### [facility] [address] [place], [address] Triglyceride [Mass/Vol] 74 mg/dL Normal [facility] Comment on above: Result Comment: The drugs N-Acetylcysteine and Metamizole may falsely depress this assay. Serum Triglycerides Reference Interval Normal <150 mg/dL Borderline high 150 - 199 mg/dL High 200 - 499 mg/dL Very High > or = 500 mg/dL Performed By: #### L [id number], L500.4050, L503.6620, L100.0100, L500.4100 #### [facility] [address] [place], [address] Low density lipoprotein (LDL ) cholesterol measurementOrdered By: Sherin Martinez on 08-07-2024 Cholesterol in LDL [Mass/Vol] 108 mg/dL 0-130 [facility] Lymphocytes Auto (Unsp spec) [#/Vol]Ordered By: Sherinnacho Martinez on 08-07-2024 Lymphocytes (Bld) [#/Vol] 1.46 10*3/uL 0.83-4.51 [facility] Lymphocytes/100 WBC Auto (Un sp spec)Ordered By: Sherin Martinez on 08-07-2024 Lymphocytes/100 WBC (Bld) 26.3 % 19-41 [facility] MCV (mean corpuscular volume ) determinationOrdered By: Sherinnacho Martinez on 08-07-2024 MCV (RBC) [Entitic vol] 88.9 fL 80-94 [facility] Mean corpuscular hemoglobin (MCH) determinationOrdered By: Sherinnacho Martinez on 08-07-2024 MCH (RBC) [Entitic mass] 27.7 pg 27.0-32.0 [facility] Mean corpuscular hemoglobin concentration (MCHC) determinationOrdered By: Sherinnacho Martinez on 08-07-2024 MCHC (RBC) [Mass/Vol] 31.2 g/dL Low 32-36 [facility] Mean platelet volume determi nationOrdered By: Sherinnacho Martinez on 08-07-2024 Platelet mean volume (Bld) [Entitic vol] 9.5 fL 6.2-12.0 [facility] Monocyte percentageOrdered B y: Sherin Martinez on 08-07-2024 Monocytes/100 WBC (Bld) 8.6 % 0-10 [facility] Neutrophil percentageOrdered By: [place] Jocelyn on 08-07-2024 Neutrophils/100 WBC (Bld) 60.9 % 47-70 [facility] Nucleated red blood cell per centageOrdered By: Sherinnacho Martinez on 08-07-2024 Nucleated RBC/100 WBC (Bld) [Ratio] 0 % 0-5 [facility] PSA,Total - Annual Screenon 08-07-2024 PSA,TOT SCREEN 3.10 ng/mL Normal 0.00-4.00 [facility] Comment on above: Result Comment: This test was performed using the TPSA assay method for the [employer] chemistry system. Values obtained with different assay methods cannot be used interchangably. When changing PSA assays in the course of monitoring a patient, additional sequential testing should be carried out to confirm baseline values. Performed By: #### L 501.9910, L500.4050, L503.6620, L100.0100, L500.4100 #### [facility] [address] [place], [address] Platelet countOrdered By: Ra rupert Martinez on 08-07-2024 Platelets (Bld) [#/Vol] 377 10*3/uL 150-450 [facility] Potassium measurementOrdered By: Sherin Martinez on 08-07-2024 Potassium [Moles/Vol] 5.1 mmol/L 3.5-5.1 [facility] RBC Auto (Bld) [#/Vol]Ordere d By: Sherin Martinez on 08-07-2024 RBC (Bld) [#/Vol] 5.41 10*6/uL 4.6-6.2 [facility] Screening prostate specific antigen (PSA) measurementOrdered By: Sherin Martinez on 08-07-2024 Prostate Specific Antigen Screen 3.10 ng/mL 0.00-4.00 [facility] Comment on above: This test was perfor med using the TPSA assay method for [employer] chemistry system. Values obtained with differentassay methods cannot be used interchangably.When changing PSA assays in the course of monitoring apatient, additional sequential testing should be carriedout to confirm baseline values. Serum anion gap measurementO rdered By: Sherin Martinez on 08-07-2024 Anion gap [Moles/Vol] 6 mmol/L 5-15 [facility] Serum globulin measurementOr dered By: Sherin Martinez on 08-07-2024 Globulin (S) [Mass/Vol] 4.1 g/dL 2.2-4.2 [facility] Serum or plasma alanine camejo otransferase (ALT) measurementOrdered By: Sherin Martinez on 08-07-2024 ALT [Catalytic activity/Vol] 20 U/L 16-61 [facility] Serum or plasma albumin isela urement (mass/volume)Ordered By: Sherin Martinez on 08-07-2024 Albumin [Mass/Vol] 4.0 g/dL 3.2-5.0 [facility] Serum or plasma alkaline fani sphatase measurementOrdered By: Sherin Martinez on 08-07-2024 ALP [Catalytic activity/Vol] 104 U/L 45-117 [facility] Serum or plasma calcium isela urement (mass/volume)Ordered By: Sherin Martinez on 08-07-2024 Calcium [Mass/Vol] 9.4 mg/dL 8.5-10.1 [facility] Serum or plasma cholesterol measurement (mass/volume)Ordered By: Sherin Martinez on 08-07-2024 Cholesterol [Mass/Vol] 198 mg/dL <200 [facility] Comment on above: <200 mg/dL Desirable 200-240 mg/dL Borderline >240 mg/dL High Risk Serum or plasma creatinine m easurement (mass/volume)Ordered By: Sherin Martinez on 08-07-2024 Creatinine [Mass/Vol] 0.88 mg/dL 0.70-1.30 [facility] Comment on above: The validity of the calculated GFR & GFRAA in patients over 70 years has not been determined. Clinical correlation is essential. Serum or plasma urea nitroge n measurement (mass/volume)Ordered By: Sherin Martinez on 08-07-2024 Urea nitrogen [Mass/Vol] 8 mg/dL 7-18 [facility] Sodium levelOrdered By: Jenae Martinez on 08-07-2024 Sodium [Moles/Vol] 137 mmol/L 136-145 [facility] Total proteinOrdered By: Sybil Martinez on 08-07-2024 Protein [Mass/Vol] 8.1 g/dL 6.4-8.2 [facility] Triglycerides measurementOrd ered By: Sherin Martinez on 08-07-2024 Triglyceride [Mass/Vol] 74 mg/dL <199 [facility] Comment on above: The drugs N-Acetylcy steine and Metamizole may falsely depress this assay.Serum Triglycerides Reference Interval Normal <150 mg/dL Borderline high 150 - 199 mg/dL High 200 - 499 mg/dL Very High > or = 500 mg/dL Very low density lipoprotein (VLDL) cholesterol measurementOrdered By: Sherin Martinez on 08-07-2024 VLDL Cholesterol 15 mg/dL 5-40 [facility] White blood cell (WBC) count Ordered By: Sherin Martinez on 08-07-2024 WBC (Bld) [#/Vol] 5.6 10*3/uL 4.4-11.0 [facility] Vital Signs Date Time Vital Sign Value Performing Clinician [place] 03-21-2025 13:59-0400 Body height 165.1 cm Sherin Martinez [employer] Work Phone: [facility] 03-21-2025 13:59-0400 Diastolic blood pressure 66 mm[Hg] Sherin Martinez [employer] Work Phone: [facility] 03-21-2025 13:59-0400 Heart rate 130 /min Sherin Jocelyn [employer] Work Phone: [facility] 03-21-2025 13:59-0400 Respiratory rate 18 /min Sherin Jocelyn [employer] Work Phone: [facility] 03-21-2025 13:59-0400 SaO2% (BldA) [Mass fraction] 93 % Sherin Jocelyn [employer] Work Phone: [facility] 03-21-2025 13:59-0400 Systolic blood pressure 100 mm[Hg] Sherin Martinez [employer] Work Phone: [facility] 02-14-2025 12:04-0400 Diastolic blood pressure 60 mm[Hg] Sherin Martinez [employer] Work Phone: [facility] 02-14-2025 12:04-0400 Systolic blood pressure 82 mm[Hg] Sherin Colungagar [employer] Work Phone: [facility] 02-14-2025 11:29-0400 Body height 165.1 cm Sherin Martinez [employer] Work Phone: [facility] 02-14-2025 11:29-0400 Body mass index (BMI) [Ratio] 16.5 kg/m2 Sheirn Jocelyn [employer] Work Phone: [facility] 02-14-2025 11:29-0400 Body temperature 96.4 [degF] Sherin Jocelyn [employer] Work Phone: [facility] 02-14-2025 11:29-0400 Body weight 44.9 kg Sherin Jocelyn [employer] Work Phone: [facility] 02-14-2025 11:29-0400 Heart rate 97 /min Sherin Jocelyn [employer] Work Phone: [facility] 02-14-2025 11:29-0400 Respiratory rate 18 /min Sherin Jocelyn [employer] Work Phone: [facility] 02-14-2025 11:29-0400 SaO2% (BldA) [Mass fraction] 97 % Sherin Jocelyn [employer] Work Phone: [facility] 10-15-2024 07:22-0400 Body mass index (BMI) [Ratio] 17.6 kg/m2 Sherin Jocelyn [employer] Work Phone: [facility] 10-15-2024 07:22-0400 Body weight 48.08 kg Sherin Jocelyn [employer] Work Phone: [facility] 10-15-2024 07:22-0400 Diastolic blood pressure 79 mm[Hg] Sherin Jocelyn [employer] Work Phone: [facility] 10-15-2024 07:22-0400 Heart rate 96 /min Sherin Jocelyn [employer] Work Phone: [facility] 10-15-2024 07:22-0400 Respiratory rate 18 /min Sherin Jocelyn [employer] Work Phone: [facility] 10-15-2024 07:22-0400 SaO2% (BldA) [Mass fraction] 94 % Sherin Jocelyn [employer] Work Phone: [facility] 10-15-2024 07:22-0400 Systolic blood pressure 117 mm[Hg] Sherin Jocelyn [employer] Work Phone: [facility] 09-06-2024 11:09-0500 Body height 165.1 cm Sherin Jocelyn [employer] Work Phone: [facility] 09-06-2024 11:09-0500 Body mass index (BMI) [Ratio] 17.9 kg/m2 Sherin Jocelyn [employer] Work Phone: [facility] 09-06-2024 11:09-0500 Body weight 48.98 kg Sherin Jocelyn [employer] Work Phone: [facility] 09-06-2024 11:09-0500 Diastolic blood pressure 113 mm[Hg] Sherin Jocelyn [employer] Work Phone: [facility] 09-06-2024 11:09-0500 Heart rate 101 /min Sherin Jocelyn [employer] Work Phone: [facility] 09-06-2024 11:09-0500 Respiratory rate 18 /min Sherin Colungagar [employer] Work Phone: [facility] 09-06-2024 11:09-0500 Systolic blood pressure 160 mm[Hg] Sherin Colungagar [employer] Work Phone: [facility] Encounters Encounter Date Encounter Type Care Provider Facility Start: 06-12-2025 ambulatory Bhargav Demiter Facility :[facility] [place] Start: 06-02-2025 ambulatory Bhargav Demiter Facility :[facility] Start: 04-22-2025 End: 04-22-2025 ambulatory Sherin Jocelyn [employer] Work Phone: -Pulmonary Services/Neurology Start: 04-22-2025 End: 04-22-2025 Patient encounter procedure Bhargav Moraiter PA -Pulmonary Services/Neurology Work Phone: Start: 04-22-2025 End: 04-22-2025 ambulatory Bhargav Demumang Facility:[facility] Start: 03-21-2025 End: 03-21-[address] Ned Harrison MD -[facility] Work Phone: Start: 03-21-2025 End: 03-21-2025 ambulatory Sherin Jocelyn [employer] Work Phone: -[facility] Start: 02-14-2025 End: 02-14-2025 Patient encounter procedure Bhargav Parra PA -[facility] Work Phone: Start: 02-14-2025 End: 02-14-2025 ambulatory Sherin Jocelyn [employer] Work Phone: -[facility] Start: 02-12-2025 End: 02-12-2025 ambulatory Sherin Jocelyn [employer] Work Phone: -Laboratory Start: 02-12-2025 End: 02-12-2025 Patient encounter procedure Bhargav Parra PA -Laboratory Work Phone: Start: 02-12-2025 End: 02-12-2025 ambulatory Sherin Jocelyn Facility:[facility] Start: 10-15-2024 End: 10-15-2024 Patient encounter procedure Bhargav Parra MS -[facility] Work Phone: Start: 10-15-2024 End: 10-15-2024 ambulatory Sherin Jocelyn Facility:[facility] Start: 10-09-2024 ambulatory Ned Harrison Facility:[facility] Start: 10-09-2024 Non-patient / Non-visit Dr. Mitchell APONTE -[facility] Start: 10-09-2024 End: 10-09-2024 ambulatory Sherin Jocelyn [employer] Work Phone: [facility] Work Phone: Start: 10-09-2024 End: 10-09-[address] Ned Harrison MD -Cardiovascular Services Work Phone: Start: 10-09-2024 End: 10-09-2024 ambulatory Ned Harrison Facility:[facility] Start: 09-06-2024 End: 09-06-[address] Ned Harrison MD -[facility] Work Phone: Start: 09-06-2024 End: 09-06-2024 ambulatory Nedsilver Harrison Facility:[facility] Start: 08-27-2024 Encounter for genera l adult medical examination with abnormal findings Sherin Martinez [facility] Start: 08-07-2024 End: 08-07-2024 Patient encounter procedure Sherin Martinez [employer] -Laboratory, [facility] Start: 08-07-2024 End: 08-07-2024 ambulatory Sherin Martinez Facility:[facility] Procedures Date Procedure Procedure Detail Performing Clinician Start: 10-09-2024 Radionuclide imaging of perfusion of myocardium under exercise stress Sherin Martinez [employer] Work Phone: Start: 09-06-2024 Evaluation of diagno stic study results Sherin Martinez [employer] Work Phone: Start: 08-07-2024 X-ray of chest, PA a nd lateral views Sherin Martinez [employer] Work Phone: Plan of Treatment Date Care Activity Detail Author Start: 03-21-2025 End: 03-21-2025 Evaluation of diagnostic study results [facility] Lipid 1995 panel - S flako or Plasma [facility] Lipid 1995 panel - S flako or Plasma [facility] Payers Date Payer Category Payer Private Health Insurance [id number] 2024 Self-pay Unknown [id number] Unknown [id number] 2.16.8 [id number] Unknown [id number] 2.16.8 [id number] Unknown [id number] 2.16.8 [id number] Unknown [id number] 2.16.8 [id number] Unknown [id number] 2.16.8 [id number] Unknown [id number] 2.16.8 [id number] Unknown [id number] 2.16.8 [id number] Unknown [id number] 2.16.8 [id number] Unknown [id number] 2.16.8 [id number] Unknown [id number] 2.16.8 [id number] Unknown [id number] 2.16.8 [id number] Social History Date Type Detail Facility Start: 10-15-2024 [facility] Start: 10-17-2024 Sex Male (finding) [facility] Start: 1960 Sex Assigned At Male [facility] Sex Male [facility] Evaluation note 02-14-2025 Note Date & Type Note Facility 02-14-2025 Evaluation note Diagnosis Onset Date Resolution SOB (shortness of breath) acute February 14, 2025 11:16am CAD (coronary artery disease) chronic February 14, 2025 11:16am Hx of non-ST elevation myocardial infarction (NSTEMI) chronic February 14, 2025 11:16am Hypertension chronic February 14, 2 025 11:16am [facility] Work Phone: Evaluation note 02-14-2025 Note Date [...] 1:37pm Tachycardia acute March 21, 2025 1:37pm [facility] Work Phone: Evaluation note 09-06-2024 [...] 10:56am Hypertension chronic October 15, 2024 10:56am [facility] Work Phone: Evaluation note Note Date & Type Note Facility Evaluation note Diagnosis Onset Date Resolution SOB (shortness of breath) acute February 14, 2025 11:16am CAD (coronary artery disease) chronic February 14, 2025 11:16am Hx of non-ST elevation myocardial infarction (NSTEMI) chronic February 14, 2025 11:16am Hypertension chronic February 14 11:16am [facility] Work Phone: Hospital Discharge instructions Note Date & Type Note Facility Hospital Discharge instructions Ambulatory OrdersPulmonary Medicine Location: None Selected [facility] Work Phone: Reason for referral (narrative) Note Date & Type Note Facility Reason for referral (narrative) No reason for referral information available [facility] Work Phone: Chief Complaint and Reason for [...] 2024 End: September 06, 2024 Sherin Martinez [employer] Referring Provider Active St art: September 06, 2024 End: September 06, 2024 Dr. Ned Harrison MD Attending Provider Active S tart: September 06, 2024 End: September 06, 2024 Team Status: Inactive Member Role Status Dates Sherin Martinez , [employer] Primary Care Provider Active Start: October 09, 2024 End: October 09, 2024 Dr. Ned Harrison MD Attending Provider Active S tart: October 09, 2024 End: October 09, 2024 Dr. Ned Harrison MD Referring Provider Active S tart: October 09, 2024 End: October 09, 2024 Team Status: Active Member Role Status Dates Sherin Martinez [employer] Primary Care Provider Active Start: October 09, 2024 Dr. Ned Harrison MD Attending Provider Active S tart: October 09, 2024 Team Status: Inactive Member Role Status Dates Sherin Martinez [employer] Primary Care Provider Active Start: October 15, 2024 End: October 15, 2024 Sherin Martinez , [employer] Referring Provider Active St art: October 15, 2024 End: October 15, 2024 KELLY Herrera Attending Provider Active St art: October 15, 2024 End: October 15, 2024 Team Status: Active Member Role/Relationship Status Dates Sherin Martinez , [employer] Primary Care Provider Active Team Status: Active Member Role/Relationship Status Dates Sherin Martinez , [employer] Primary Care Provider Active Start: February 12, 2025 KELLY Herrera Attending Provider Active St art: February 12, 2025 KELLY Herrera Referring Provider Active St art: February 12, 2025 Team Status: Inactive Member Role/Relationship Status Dates Sherin Martinez , [employer] Primary Care Provider Active Start: February 14, 2025 End: February 14, 2025 Sherin Martinez , [employer] Referring Provider Active St art: February 14, 2025 End: February 14, 2025 KELLY Herrera Attending Provider Active St art: February 14, 2025 End: February 14, 2025 Team Status: Inactive Member Role/Relationship Status Dates Sherin Martinez [employer] Primary Care Provider Active Start: February 12, 2025 End: February 12, 2025 KELLY Herrera Attending Provider Active St art: February 12, 2025 End: February 12, 2025 KELLY Herrera Referring Provider Active St art: February 12, 2025 End: February 12, 2025 Team Status: Inactive Member Role/Relationship Status Dates Sherin Martinez , [employer] Primary Care Provider Active Start: March 21, 2025 End: March 21, 2025 Sherin Martinez , [employer] Referring Provider Active St art: March 21, 2025 End: March 21, 2025 Dr. Ned Harrison MD Attending Provider Active S tart: March 21, 2025 End: March 21, 2025 Team Status: Active Member Role/Relationship Status Dates Sherin Martinez [employer] Primary care physician Active Team Status: Inactive Member Role/Relationship Status Dates Sherin Martinez , [employer] Primary care physician Active Start: February 12, 2025 End: February 12, 2025 KELLY Herrera Attending physician Active S tart: February 12, 2025 End: February 12, 2025 KELLY Herrera Referring Provider Active St art: February 12, 2025 End: February 12, 2025 Team Status: Inactive Member Role/Relationship Status Dates Sherin Martinez [employer] Primary care physician Active Start: February 14, 2025 End: February 14, 2025 Sherin Martinez , [employer] Referring Provider Active St art: February 14, 2025 End: February 14, 2025 KELLY Herrera Attending physician Active S tart: February 14, 2025 End: February 14, 2025 Team Status: Inactive Member Role/Relationship Status Dates Sherin Martinez , [employer] Primary care physician Active Start: March 21, 2025 End: March 21, 2025 Sherin Martinez , [employer] Referring Provider Active St art: March 21, 2025 End: March 21, 2025 Dr. Ned Harrison MD Attending physician Active Start: March 21, 2025 End: March 21, 2025 Team Status: Inactive Member Role/Relationship Status Dates Sherin Martinez , [employer] Primary care physician Active Start: April 22, [...] section and content) DATE CREATED AUTHOR 06/05/[address] [facility] FOR RECORDS PERTAINING TO PATIENTS WHO [...] BE BASED ON THE PRIMARY CLINICAL RECORDS. [employer] provides no warranty or guarantee of the accuracy or completeness of information in this document.
--- NOTE | 2025-07-14 10:43 | PCM.PSN.6M ---
PSN 6 Minute Walk Test 6 Minute Walk Test 6 Minute Walk Test: 6 Minute Walk Test PSN:6-Minute Walk Test Start: 07/10/25 14:08 Freq: Status: Active Protocol: [id number] Document 07/10/25 13:35 [facility] (Rec: 07/10/25 14:12 [facility] [id number]) 6 Minute Walk Test Date Performed 07/10/25 Time Performed 13:35 Height 5 ft 5 in Weight: 104 lb Weight in Pounds 104.[address]: Xavier Guadalupe FIO2 (% Oxygen) 21 Assistive device None used: Pre-test Oxygen Delivery Room Air Method Pulse Ox (%) 98 Pulse Rate (60-100 122 H beats/min) Dyspnea Yousif Scale ( 1 0-10) Exertion Yousif Scale 7 (6-20) 1st minute Oxygen Delivery Room Air Method Pulse Ox (%) 95 Pulse Rate (60-100 130 H beats/min) 2nd minute Oxygen Delivery Room Air Method Pulse Ox (%) 93 Pulse Rate (60-100 133 H beats/min) 3rd minute Oxygen Delivery Room Air Method Pulse Ox (%) 92 Pulse Rate (60-100 135 H beats/min) 4th minute Oxygen Delivery Room Air Method Pulse Ox (%) 91 Pulse Rate (60-100 135 H beats/min) 5th minute Oxygen Delivery Room Air Method Pulse Ox (%) 90 Pulse Rate (60-100 135 H beats/min) Dyspnea Yousif Scale ( 5 0-10) Exertion Yousif Scale 13 (6-20) Reported Symptoms Increased Work of Breathing 6th minute Oxygen Delivery Room Air Method Pulse Ox (%) 90 Pulse Rate (60-100 137 H beats/min) Reported Symptoms Increased Work of Breathing Post-test Oxygen Delivery Room Air Method Pulse Ox (%) 96 Pulse Rate (60-100 129 H beats/min) Full Laps Walked 14 Partial Lap, Number 0 of Tiles Walked Total Distance 826 Walked (ft) Interpretation Interpretation: The patient ambulated 826 feet over the course of 6 minutes beginning on room air without assistive devices. Pretesting oxygen saturation was noted to be 98% on room air. With ambulation, the [place] oxygen saturation was 90%. This represents a significant exertional oxygen desaturation, consistent with a pulmonary limitation to exercise tolerance. Recommendations Recommendations: There is no indication for the use of supplemental oxygen at this time. However, close interval follow-up is recommended, given the degree of oxygen desaturation noted during this study.
== END | disposition home or self-care (01) ==
PROVIDERS: PCP Nurse Practitioner Family; Referring Provider Internal Medicine Critical Care Medicine; Visit Provider Internal Medicine Critical Care Medicine
DX: J44.9 Chronic obstructive pulmonary disease, unspecified (principal); F17.210 Nicotine dependence, cigarettes, uncomplicated
CPT/HCPCS: 94618